=== PATIENT | male | born 1990 | race Caucasian/White ===

== ENCOUNTER 2016-07-18 08:46 | Inpatient (IN) | payer MEDICAID, OTHER ==
[~2016-07-18] VITALS: Ht 172.7 cm; Wt 112.0 kg
[~2016-07-18 08:46] MED LIST: ABIL2TAB2 PO; ATARAX PO; BUPR300T34 PO; CLAR500T PO; DEPA500T2 PO; EFFE75CA75 PO; GUAN1TA PO; HYDR-4274 PO; HYDR1TAB97 PO; HYDR50CA2 PO; IBUP80TA PO; LEVO112T2 PO; LEVO25TA5 PO; MELO15TA4 PO; MINI1CAP PO; NALT50TA2 PO; No Historical Meds; No home meds; RISP0.5T16 PO; RISP2TAB30 PO; STRA80CA PO; SYNT112T2 PO; SYNT25TA PO; TRAZ100T4 PO; TRAZO50TA PO; VENL75CA PO; VICO5TAB OR; VICO5TAB16 PO; VIST25CA PO; atarax PO
[2016-07-18] MEDS: NICOTINE 21MG/24HR 1 EA TRANSDERMAL TD SCH ×2 (09:00→15:30)
[2016-07-18] MEDS ORDERED: OXYMETAZOLINE NASAL SPRAY (AFRIN) As Ordered ONE (09:06)
[2016-07-18] MEDS ORDERED: PATIENT COMMENT (09:11)
[2016-07-18] MEDS ORDERED: FLUTICASONE PROP 0.05% NASAL SPRAY 16 GM (FLONASE) ONE (09:30)
[2016-07-18 09:34] LABS: MEAN CORPUSCULAR HEMOGLOBIN 29.7 pg (27.0-33.0); MEAN CORPUSCULAR HGB CONC 34.8 g/dl (32.0-36.5); MEAN CORPUSCULAR VOLUME 85.2 fl (80.0-96.0); RED CELL DISTRIBUTION WIDTH 12.2 % (11.5-14.5); WHITE BLOOD COUNT 5.8 K/mm3 (4.0-10.0)
[2016-07-18 09:49] LABS: AMPHETAMINES LEVEL URINE NEGATIVE (NEGATIVE); BENZODIAZEPINES URINE NEGATIVE (NEGATIVE); COCAINE METABOLITE URINE NEGATIVE (NEGATIVE); CONTROL LINE INT CTR LINE PRESENT; METHADONE URINE NEGATIVE (NEGATIVE); OPIATES URINE NEGATIVE (NEGATIVE); TRICYCLIC ANTIDEPRESS URINE NEGATIVE (NEGATIVE)
[2016-07-18 10:05] LABS: ALBUMIN 3.8 GM/DL (3.2-5.2); ALBUMIN/GLOBULIN RATIO 1.23 (1.00-1.93); ALKALINE PHOSPHATASE 79 U/L (45-117); ALT/SGPT 16 U/L (12-78); ANION GAP 9 MEQ/L (8-16); AST/SGOT 7 U/L (15-37); BILIRUBIN,DIRECT 0.1 MG/DL (0.0-0.2); BILIRUBIN,TOTAL 0.4 MG/DL (0.2-1.0); BLOOD UREA NITROGEN 12 MG/DL (7-18); CALCIUM LEVEL 8.5 MG/DL (8.5-10.1); CARBON DIOXIDE LEVEL 27 MEQ/L (21-32); CHLORIDE LEVEL 109 MEQ/L (98-107); CREATININE FOR GFR 0.89 MG/DL (0.70-1.30); GLOMERULAR FILTRATION RATE > 60.0 (>60); GLUCOSE, FASTING 93 MG/DL (70-105); SODIUM LEVEL 145 MEQ/L (136-145); TOTAL PROTEIN 6.9 GM/DL (6.4-8.2)
--- NOTE | 2016-07-18 12:17 | EDDOCDS ---
Physician Documentation [facility] Name: Mariusz Velarde Age: 25 yrs Sex: Male : 1990 Arrival Date: 07/18/2016 Time: 08:[address] MD: Disposition: 07/18/16 12:12 Hospitalization ordered by Breonna Ceja for Inpatient Admission. Preliminary diagnosis is Major depressive disorder, recurrent, moderate. - Bed requested for Admit. - Status is Inpatient Admission. jjr - Condition is Stable. - Problem is an acute exacerbation. - Symptoms are unchanged. Historical: - Allergies: Benadryl; - Home Meds: 1. Atarax Oral 50 mg twice a day not taking 2. divalproex 500 mg oral TbEC 1 tab 2 times per day not taking 3. levothyroxine 75 mcg Oral tab once daily not taking 4. risperidone 0.5 mg oral tab 2 times per day not taking 5. venlafaxine 75 mg oral cp24 1 cap once daily not taking - PMHx: Anxiety; Depression; Hypertension; - PSHx: right foot ORIF; - Social history: Smoking status: Patient states was never smoker of tobacco. No barriers to communication noted, Speaks appropriately for age. - : The pt / caregiver states he / she is not on anticoagulants. Home medication list is obtained from the patient, Unable to Verify Home Med List with the patient / caregiver. - Exposure Risk Screening:: None identified. Vital Signs: 07/18 09:04 Weight 108.86 kg / 240 lbs (R); Height 5 ft. 7 in. (170.18 cm) (R); Pain 0/10; ml6 09:42 BP 129 / 75; Pulse 77; Resp 16; Temp 97.3(O); Pulse Ox 96% on R/A; Height 5 ft. 7 in. sew (170.18 cm); Pain 8/10; 11:56 BP 121 / 71; Pulse 81; Resp 16; Temp 98.0(O); Pulse Ox 97% on R/A; Pain 5/10; sew 09:42 Body Mass Index 37.59 (108.86 kg, 170.18 cm) sew MDM: 09:02 Consult PFS/PSA/Associate Java Developer ordered. sd1 09:02 Consult PFS/PSA/Associate Java Developer: Patient's case requires discussion with on-call sd1 Psychiatrist ordered. 09:02 PSA/PFS to call Nursing Greenhouse Transplanter, to enter patient data on [place] Safe [place] if patient sd1 involuntarily admitted or transferred for SI or HI ordered. 09:02 Confirm accurate psychiatric medication list and times of last dosage ordered. sd1 09:02 Detain Pt Until Medically/PFS Cleared ordered. sd1 09:02 Oxymetazoline Tijer[place] 0.05 % 1 sprays Intranasal once ordered. sd1 09:02 Flonase Tijer[place] 50 mcg 2 sprays Intranasal once ordered. sd1 09:02 Acetaminophen Level Ordered. EDMS 09:02 Basic Metabolic Profile Ordered. EDMS 09:03 Complete Blood Count Ordered. EDMS 09:03 Drug Eval Toxicology ED Only Ordered. EDMS 09:03 Ethyl Alcohol (ethanol) Ordered. EDMS 09:03 Liver Profile Ordered. EDMS 09:03 Salicylate Level Ordered. EDMS 09:03 Thyroid Stimulating Hormone Ordered. EDMS 09:03 BED REQUEST+ADM ordered. EDMS 09:22 Financial registration complete. mm15 09:23 [facility] Payment Agreement was scanned into [employer] and attached to record. mm15 09:24 REGULAR DIET PLASTIC MCCORMICK-ER ordered. EDMS 10:16 Consult PFS/PSA/Associate Java Developer complete. ca 10:16 Consult PFS/PSA/Associate Java Developer: Patient's case requires discussion with on-call ca Psychiatrist complete. 10:16 PSA/PFS to call Nursing Greenhouse Transplanter, to [place] patient data [place] if patient ca involuntarily admitted or transferred for SI or HI complete. 10:32 Acetaminophen Level Reviewed. sd1 10:32 Basic Metabolic Profile Reviewed. sd1 10:32 Liver Profile Reviewed. sd1 10:32 Salicylate Level Reviewed. sd1 10:32 Thyroid Stimulating Hormone Reviewed. sd1 10:32 Complete Blood Count Reviewed. sd1 10:32 Drug Eval Toxicology ED Only Reviewed. sd1 10:32 Ethyl Alcohol (ethanol) Reviewed. sd1 11:06 REGULAR DIET PLASTIC MCCORMICK+DIET ordered. EDMS 11:43 Admit to HU: ordered. EDMS 11:44 REGULAR DIET ordered. EDMS 11:45 [facility] Legal paperwork was scanned into [employer] and attached to record. ml4 Administered Medications: 09:12 Drug: Oxymetazoline 1 sprays [oxymetazoline 0.05 % nasal spray (1 sprays)] Route: jjr Intranasal; Site: both nares; 10:23 Drug: Flonase Tijeras 50 mcg 2 sprays Route: Intranasal; Site: both nares; nr1 Signatures: Dispatcher [employer] Janeen Flores MD MD sd1 Francisca Robles, PSA PSA ca Ruthie Chamberlain, PSA PSA ml4 Luci Del Real RN RN jjJuventino Baker RN RN ml6 Shobha Elder mm15 Radha Michaud RN nr1 The chart was reviewed and I authenticate all verbal orders and agree with the evaluation and treatment provided.Attachments: 09: [facility] Payment Agreement mm15 MTDD
--- NOTE | 2016-07-18 12:17 | EDDOCDS ---
Nurse's Notes [facility] Name: Mariusz Velarde Age: 25 yrs Sex: Male : 1990 Arrival Date: 07/18/2016 Time: 08:[address] MD: Diagnosis: Major depressive disorder, recurrent, moderate Presentation: 07/18 08:51 Red Flag criteria, patient assessed and taken directly to a bed. ml6 09:00 Presenting complaint: Patient states: states that he stopped his medications 3 months ml6 ago, states increased depression and that he lost his apartment. Mental Health Triage Level: Level 2: The patient displays active suicidal ideations. Adult Sepsis Screening: The patient does not have new or worsening altered mentation. Patient's respiratory rate is less than 22. Systolic blood pressure is greater than 100. Patient has a qSOFA score of 0- Negative Sepsis Screen. Mental Health Triage Level: Level 2: The patient displays active suicidal ideations. Suicide/Homicide risk assessment- The patient admits to and/or has been reported to be having suicidal ideations. The patient reports that he/she has not been admitted to an inpatient mental health facility in the last 30 days. The patient reports that he/she does not have a recent or current history of substance abuse. The patient reports that he/she has a prior history of suicide attempt and/or organized plan. The patient reports that he/she has experienced a significant life altering event in the last 30 days. Status: Patient is not a appliance service representative or dependent. Transition of care: patient was not received from another setting of care. 09:00 Acuity: AKIKO Level 3 ml6 09:00 Method Of Arrival: Walkin/Carried/Asstd ml6 Triage Assessment: 09:04 General: Appears in no apparent distress, Behavior is appropriate for age, cooperative. ml6 Pain: Denies pain. HIV screening NA for this visit Offered previously. Neurological: No deficits noted. Level of Consciousness is awake, alert, Oriented to person, place, time. Cardiovascular: No deficits noted. Capillary refill < 3 seconds is brisk in bilateral fingers toes. Respiratory: No deficits noted. Airway is patent Respiratory effort is even, unlabored, Respiratory pattern is regular, symmetrical, Breath sounds are clear bilaterally. GI: No deficits noted. Abdomen is flat, non- distended Bowel sounds present X 4 quads. Abd is soft and non tender X 4 quads. Historical: - Allergies: Benadryl; - Home Meds: 1. Atarax Oral 50 mg twice a day not taking 2. divalproex 500 mg oral TbEC 1 tab 2 times per day not taking 3. levothyroxine 75 mcg Oral tab once daily not taking 4. risperidone 0.5 mg oral tab 2 times per day not taking 5. venlafaxine 75 mg oral cp24 1 cap once daily not taking - PMHx: Anxiety; Depression; Hypertension; - PSHx: right foot ORIF; - Social history: Smoking status: Patient states was never smoker of tobacco. No barriers to communication noted, Speaks appropriately for age. - : The pt / caregiver states he / she is not on anticoagulants. Home medication list is obtained from the patient, Unable to Verify Home Med List with the patient / caregiver. - Exposure Risk Screening:: None identified. Screenin:12 Screening information is obtained from the patient. Fall risk: No risks identified. jjr Assistance ADL's: requires no assistance with activities of daily living. Abuse/DV Screen: The patient / caregiver reports he/she is: not in a situation that causes fear, pain or injury. Nutritional screening: No deficits noted. Advance Directives: There is no active DNR order. home support is inadequate. Referral is made to [facility]. Assessment: 09:12 General: Appears in no apparent distress, well nourished, well groomed, Behavior is jjr appropriate for age, cooperative. Neurological: No deficits noted. EENT: Reports pain in left ear and right ear. Respiratory: Airway is patent Respiratory effort is even, unlabored, Respiratory pattern is regular, congested cough. Derm: No deficits noted. 11:05 General: Appears to be sleeping. jjr 12:15 General: Appears in no apparent distress, Behavior is appropriate for age, no change jjr from arrival. Mental Health Eval: 09:50 Mental health consult is initiated at 09:50. Status: The patient is not a mo appliance service representative or dependent. [facility] Behavioral Health: The patient is not an established patient of [facility] Behavioral Health. Referral Information: Evaluation referral is generated by the patient himself / herself. The patient was referred for evaluation because Depression, SI. Subjective: The patients chief complaint is Pt states he is "A little bit suicidal." Denies specific plan. Adds that he has "Wicked racing thoughts and flash-back type stuff." Pt is requesting admission. . Delusions are denied. Patient's mood is depressed, hopeless, hallucinations are Pt denies hallucinations, but goes on to describe "flash back stuff" as being "like a hallucination.". Pt says his life is not good and he has increasing depression. SI is vague, pt does not have a specific plan but he feels unable to cope with stressors and fears he will harm himself. Pt has decreased sleep and has not taken his psychiatric meds for 2-3 months because "I don't like the way they make me feel." No psychiatric tx with psychiatry at this time. He is also homeless and says he is bouncing around from house to house living with friends and family. Pt continues to use marijuana. He says he is no longer abusing alcohol, although he admits to 3 mixed drinks yesterday. Otherwise he says he has not consumed any for several months. He also abuses opioids, which he buys on the street, but denies using any lately. Completed rehab in [place], [place] earlier this year, per pt. Pt has a bottle caser, Breonna Funk ([phone]) through [facility]. Mental Health history: alcohol abuse, depression, abusing marijuana. narcotics. psychosis, self -mutilation, sleep disturbance, Mental Health Admissions: Most recently at [facility] 02/05 for depression, SI, AH Current Outpatient Mental Health Services: None. Current living environment is homeless. The patient is . Patient presents to Emergency Department with the following symptoms within the past 2 weeks: anxiety, depressed mood, feelings of helplessness/hopelessness, marital problem, non-compliance, poor concentration, sleep disturbance - insomnia, suicidal ideation with no plan. 10:12 Substance abuse: Patient uses marijuana Last use was 1 days ago. Patient uses opiates ca Type Used: "Pain pills" Last Used: 2-3 months ago. Mental status exam: Patients appearance is disheveled Patient's behavior is cooperative, Speech is normal. Affect is flat. Mood is depressed. Hallucinations are denied. Appetite is normal. Memory is fair. Energy level is lethargic. Content of thought is Depressive Thought process is intact. Cognitive level is oriented to person, place, time and situation Patient's insight is fair. Judgement is fair. Rapport with interviewer is good. Suicidal Ideation is present with no specific plan. Homicidal ideation is denied. Disposition: Medically cleared for disposition by Janeen Saleh MD. 11:32 Disposition: Psychiatric Consult is performed by phone with Dr Breonna Ceja. [facility] Admission Criteria: The patient is experiencing suicidal ideation. The patient displays symptoms of severe psychiatric disorder resulting in disordered behavior and significant interference with his / her ability to maintain self care. Psychomotor Retardation. The patient requires continuous observation and/or control to protect self, others or property. The patient's care requires a multi-modal treatment plan under close supervision and coordination due to the complexity and severity of the patient's symptoms. Legal Status: Patient's legal status will be Emergency admission: . [place] because patient was registered less than 6 months ago. DSM-V Differential Diagnosis: Major Depressive Disorder recurrent episode (F33.0). Insurance Pre-Certification: In progress. Awaiting: transfer to [facility]. Vital Signs: 09:04 Weight 108.86 kg (R); Height 5 ft. 7 in. (170.18 cm) (R); Pain 0/10; ml6 09:42 BP 129 / 75; Pulse 77; Resp 16; Temp 97.3(O); Pulse Ox 96% on R/A; Height 5 ft. 7 in. sew (170.18 cm); Pain 8/10; 11:56 BP 121 / 71; Pulse 81; Resp 16; Temp 98.0(O); Pulse Ox 97% on R/A; Pain 5/10; sew 09:42 Body Mass Index 37.59 (108.86 kg, 170.18 cm) sew Vitals: 09:04 Log In Time: July 18, 2016 at 08:50. ml6 ED Course: 08:47 Patient visited by Shobha Elder. mm15 08:47 Patient moved to Waiting mm15 08:51 Janeen Saleh MD is Attending Physician. sd1 08:51 Patient moved to [facility] ml6 08:52 Patient visited by Janeen Saleh MD. sd1 09:01 Triage Initiated ml6 09:12 The patient / caregiver is instructed regarding the plan of care and ED course. jjr 09:13 Patient visited by Luci Del Real RN. jjr 09:20 Patient visited by Janeen Dorsey. sew 09:20 Patient has correct armband on for positive identification. Bed in low position. Call sew light in reach. Side rails up X 1. Security observing. Property inventory done, secured in belongings bag- placed in locked locker. Placed in locker 3. Psych Safety Check: Location: Psych Room. Visual Assessment: Cooperative. 09:23 [facility] Payment Agreement was scanned into [employer] and attached to record. mm15 09:30 Labs drawn. (by ED staff). Sent per order to lab. Urine collected. Clean catch sew specimen. Urine specimen sent to lab. 09:31 Acetaminophen Level Sent. sew 09:31 Basic Metabolic Profile Sent. sew 09:31 Complete Blood Count Sent. sew 09:31 Ethyl Alcohol (ethanol) Sent. sew 09:31 Drug Eval Toxicology ED Only Sent. sew 09:31 Salicylate Level Sent. sew 09:31 Thyroid Stimulating Hormone Sent. sew 09:39 Patient visited by Janeen Dorsey. sew 09:39 Psych Safety Check: Location: Psych Room. Visual Assessment: Cooperative, pt resting on sew stretcher at this time. 09:42 Patient visited by Janeen Dorsey. sew 09:42 Diet: Patient given regular meal. sew 10:09 Patient visited by Janeen Dorsey. sew 10:09 Psych Safety Check: Location: Psych Room. Visual Assessment: Cooperative. sew 10:22 Patient visited by Janeen Dorsey. sew 10:22 Psych Safety Check: Location: Psych Room. Visual Assessment: Cooperative. sew 10:37 Psych Safety Check: Location: Psych Room. Visual Assessment: Cooperative. sew 10:43 Patient visited by Janeen Dorsey. sew 10:57 Patient visited by Janeen Dorsey. sew 10:57 Psych Safety Check: Location: Psych Room. Visual Assessment: Sleeping. sew 11:05 Patient visited by Luci Del Real RN. jjr 11:19 Psych Safety Check: Location: Psych Room. Visual Assessment: Sleeping. sew 11:20 Patient visited by Janeen Dorsey. sew 11:24 Psych Safety Check: Location: Psych Room. Visual Assessment: Sleeping. sew 11:45 [facility] Legal paperwork was scanned into [employer] and attached to record. ml4 11:45 Psych Safety Check: Location: Psych Room. Visual Assessment: Sleeping. sew 11:47 Patient visited by Janeen Dorsey. sew 11:57 Patient visited by Janeen Dorsey. sew 11:57 Patient visited by Janeen Dorsey. sew 11:57 Psych Safety Check: Location: Psych Room. Visual Assessment: Cooperative. sew 12:11 Patient visited by Janeen Dorsey. sew 12:11 Breonna Ceja is Hospitalizing Provider. sd1 12:11 Psych Safety Check: Location: Psych Room. Visual Assessment: Cooperative. sew 12:15 No IV's were initiated during this patient's visit. No procedures done that require jjr assistance. Administered Medications: 09:12 Drug: Oxymetazoline 1 sprays [oxymetazoline 0.05 % nasal spray (1 sprays)] Route: jjr Intranasal; Site: both nares; 10:23 Drug: Flonase Combes 50 mcg 2 sprays Route: Intranasal; Site: both nares; nr1 Attachments: 11:45 E Legal paperwork ml4 Order Results: Lab Order: Acetaminophen Level; SPEC'M 07/18/16 09:22 Test: ACETAMINOPHEN LEVEL; Value: < 2.0; Range: 10.0-30.0; Abnormal: Below low normal; Units: UG/ML; Status: F Lab Order: Basic Metabolic Profile; SPEC'M 07/18/16 09:22 Test: GLUCOSE, FASTING; Value: 93; Range: 70-105; Units: MG/DL; Status: F Test: BLOOD UREA NITROGEN; Value: 12; Range: 7-18; Units: MG/DL; Status: F Test: CREATININE FOR GFR; Value: 0.89; Range: 0.70-1.30; Units: MG/DL; Status: F Test: GLOMERULAR FILTRATION RATE; Value: > 60.0; Range: >60; Status: F Test: SODIUM LEVEL; Value: 145; Range: 136-145; Units: MEQ/L; Status: F Test: POTASSIUM SERUM; Value: 4.0; Range: 3.5-5.1; Units: MEQ/L; Status: F Test: CHLORIDE LEVEL; Value: 109; Range: 98-107; Abnormal: Above high normal; Units: MEQ/L; Status: F Test: CARBON DIOXIDE LEVEL; Value: 27; Range: 21-32; Units: MEQ/L; Status: F Test: ANION GAP; Value: 9; Range: 8-16; Units: MEQ/L; Status: F Test: CALCIUM LEVEL; Value: 8.5; Range: 8.5-10.1; Units: MG/DL; Status: F Test Note: ; Units are mL/min/1.73 m2 Chronic Kidney Disease Staging per NKF: Stage I & II GFR >=60 Normal to Mildly Decreased Stage III GFR 30-59 Moderately Decreased Stage IV GFR 15-29 Severely Decreased Stage V GFR <15 Very Little GFR Left ESRD GFR <15 on CASTING OPERATOR Lab Order: Complete Blood Count; SPEC'M 07/18/16 09:22 Test: WHITE BLOOD COUNT; Value: 5.8; Range: 4.0-10.0; Units: K/mm3; Status: F Test: RED BLOOD COUNT; Value: 5.35; Range: 4.30-6.10; Units: M/mm3; Status: F Test: HEMOGLOBIN; Value: 15.9; Range: 14.0-18.0; Units: g/dl; Status: F Test: HEMATOCRIT; Value: 45.6; Range: 42.0-52.0; Units: %; Status: F Test: MEAN CORPUSCULAR VOLUME; Value: 85.2; Range: 80.0-96.0; Units: fl; Status: F Test: MEAN CORPUSCULAR HEMOGLOBIN; Value: 29.7; Range: 27.0-33.0; Units: pg; Status: F Test: MEAN CORPUSCULAR HGB CONC; Value: 34.8; Range: 32.0-36.5; Units: g/dl; Status: F Test: RED CELL DISTRIBUTION WIDTH; Value: 12.2; Range: 11.5-14.5; Units: %; Status: F Test: PLATELET COUNT, AUTOMATED; Value: 333; Range: 150-450; Units: k/mm3; Status: F Lab Order: Drug Eval Toxicology ED Only; SPEC'M 07/18/16 09:22 Test: AMPHETAMINES LEVEL URINE; Value: NEGATIVE; Range: NEGATIVE; Status: F Test: BARBITURATES URINE; Value: NEGATIVE; Range: NEGATIVE; Status: F Test: BENZODIAZEPINES URINE; Value: NEGATIVE; Range: NEGATIVE; Status: F Test: CANNABINOIDS URINE; Value: NEGATIVE; Range: NEGATIVE; Status: F Test: COCAINE METABOLITE URINE; Value: NEGATIVE; Range: NEGATIVE; Status: F Test: METHADONE URINE; Value: NEGATIVE; Range: NEGATIVE; Status: F Test: OPIATES URINE; Value: NEGATIVE; Range: NEGATIVE; Status: F Test: TRICYCLIC ANTIDEPRESS URINE; Value: NEGATIVE; Range: NEGATIVE; Status: F Test Note: ; ALL PRESUMPTIVE POSITIVE FINDINGS ARE UNCONFIRMED NORMAL VALUES THRESHOLD IN NG/ML AMPHETAMINES 1000 METHAMPHETAMINES 1000 BARBITURATES 300 BENZODIAZEPINES 300 CANNABINOIDS (THC) 50 COCAINE METABOLITE 300 METHADONE 300 OPIATES 300 PHENCYCLIDINE 25 TRICYCLIC ANTIDEPRESSANTS 1000 RESULTS ARE FOR MEDICAL PURPOSES ONLY. ALL URINE SPECIMENS WILL BE SAVED FOR 3 DAYS. IF CONFIRMATION OF A PRESUMPTIVE POSTIVE SCREEN RESULT IS DESIRED, CALL CHEMISTRY ([phone]) AND REQUEST URINE TO BE SENT TO REFERENCE LAB. FOR A LIST OF CLOSELY RELATED COMPOUNDS PLEASE CALL THE LAB. Lab Order: Ethyl Alcohol (ethanol); SPEC'M 07/18/16 09:22 Test: ETHYL ALCOHOL (ETHANOL); Value: < 0.003; Range: 0.000-0.010; Units: %; Status: F Lab Order: Liver Profile; SPEC'M 07/18/16 09:22 Test: AST/SGOT; Value: 7; Range: 15-37; Abnormal: Below low normal; Units: U/L; Status: F Test: ALT/SGPT; Value: 16; Range: 12-78; Units: U/L; Status: F Test: ALKALINE PHOSPHATASE; Value: 79; Range: 45-117; Units: U/L; Status: F Test: BILIRUBIN,TOTAL; Value: 0.4; Range: 0.2-1.0; Units: MG/DL; Status: F Test: BILIRUBIN,DIRECT; Value: 0.1; Range: 0.0-0.2; Units: MG/DL; Status: F Test: TOTAL PROTEIN; Value: 6.9; Range: 6.4-8.2; Units: GM/DL; Status: F Test: ALBUMIN; Value: 3.8; Range: 3.2-5.2; Units: GM/DL; Status: F Test: ALBUMIN/GLOBULIN RATIO; Value: 1.23; Range: 1.00-1.93; Status: F Lab Order: Salicylate Level; SPEC'M 07/18/16 09:22 Test: SALICYLATE LEVEL; Value: 3.8; Range: 5.0-30.0; Abnormal: Below low normal; Units: MG/DL; Status: F Lab Order: Thyroid Stimulating Hormone; SPEC'M 07/18/16 09:22 Test: THYROID STIMULATING HORMONE; Value: 11.400; Range: 0.358-3.740; Abnormal: Above high normal; Units: uIU/ML; Status: F Outcome: 12:12 Decision to Hospitalize by Provider. sd1 12:15 Discharge Assessment: patient administered narcotics - no. The following High Risk jjr Discharge criteria are identified: None. Admitted to Psych accompanied by tech, via wheelchair, with chart. Condition: stable. No special radiology studies were completed. 12:16 Patient left the ED. jjr Signatures: Janeen Saleh MD MD sd1 Francisca Robles, PSA PSA ca Ruthie Chamberlain, PSA PSA ml4 Luci Del Real RN RN nawafr Juventino Rangel RN RN ml6 Janeen Dorsey Marlynn mm15 Radha Michaud,MICHAEL RN nr1 Corrections: (The following items were deleted from the chart) 10:49 09:50 Subjective: The patients chief complaint is Pt states he is "A little bit ca suicidal." Denies specific plan. Adds that he has "Wicked racing thoughts and flash-back type stuff." Pt is requesting admission. . Delusions are denied. Patient's mood is depressed, hopeless, hallucinations are Pt denies hallucinations, but goes on to describe "flash back stuff" as being "like a hallucination.". Pt says his life is not good and he has increasing depression. SI is vague, pt does not have a specific plan but he feels unable to cope with stressors and fears he will harm himself. Pt has decreased sleep and has not taken his psychiatric meds for 2-3 months because "I don't like the way they make me feel." No psychiatric tx with psychiatry at this time. He is also homeless and says he is bouncing around from house to house living with friends and family. Pt continues to use marijuana. He says he is no longer abusing alcohol, although he admits to 3 mixed drinks yesterday. Otherwise he says he has not consumed any for several months. He also abuses opioids, which he buys on the street, but denies using any lately. Completed rehab in [place] earlier this year, per pt. Pt has a bottle caser, Breonna, through [facility] ca MTDD
[2016-07-18 12:32] VITALS: BP 132/83
[2016-07-18] MEDS ORDERED: MOM 30ML SUSPENSION UDC PO PRN (14:00)
[2016-07-18] MEDS ORDERED: MAALOX 30 ML SUSP *UDC PO PRN (14:00)
[2016-07-18 18:00] VITALS: BP 130/77
[2016-07-18] MEDS: traZODone 50 MG TAB PO PRN (21:14)
[2016-07-19] MEDS: LEVOTHYROXINE 0.075 MG TAB (75 MCG) PO SCH (06:12)
[2016-07-19 06:56] VITALS: BP 116/61
[2016-07-19] MEDS: NICOTINE 21MG/24HR 1 EA TRANSDERMAL TD SCH (09:45)
[2016-07-19 18:00] VITALS: BP 133/71
[2016-07-19] MEDS: hydrOXYzine 50 MG TAB PO PRN (19:14)
[2016-07-19] MEDS: QUEtiapine FUMARATE 50 MG TAB PO SCH (21:16)
--- NOTE | 2016-07-19 21:16 | HPEPDOC ---
[facility] History & Physical History and Physical DATE OF ADMISSION: Jul 18, 2016 at 12:25 CHIEF COMPLAINT: "I guess I was feeling a little suicidal but I wasn't going to kill myself. " HISTORY OF THE PRESENT ILLNESS: Patient is a 25-year-old male who has had multiple inpatient admissions, last received inpatient treatment from [facility] in January 2016 for depression and suicidal ideation and audiovisual hallucinations. Patient indicates he is not active with outpatient treatment at this time and presents again for inpatient treatment reporting suicidal ideation with no plan. Patient reports worsening of the following symptoms over the past 2 weeks: Anxiety, helplessness, hopelessness, sleep disturbance, increase in depression, suicidal thinking, and adds he lost his apartment and is now homeless. Patient also endorses racing thoughts and "flashbacks memories about stuff from the past but not bad stuff," and mild mood lability. Patient reports current anxiety level of 7/10, depression 9/10, denies suicidal and homicidal ideation, denies audiovisual hallucinations, and denies urge to engage in self-injurious behavior. She denies history of suicide attempt. Patient reports experiencing "flashback memories of my past and stuff," indicates sensory experience is not disturbing and denies that "memories" are associated with traumatic experience. Patient indicates he had been taking psychotropic medications up until approximately 3 months ago, states he did not find medications effective and reports notable side effects. Patient informs advertising copywriter he received treatment at [place] in January 2016 which she found moderately helpful. Patient denies discomfort in social settings but reports history of panic symptoms denies compulsive behavior denies a history of aggression and denies access to weapons. Patient endorses racing thoughts, mild increase to energy level, reduced concentration reduced appetite with 25 pound weight loss over past month, reports latency and maintenance sleep related challenges, and indicates he "sometimes a little" experiences dissociative symptoms. Of Note: Patient indicates during his hospital stay he would like to only take 1 medication, as opposed to the combination of medications he's been taking adding, "I think something like Klonopin and Xanax worked the best but I know they won't give them to me." PAST PSYCHIATRIC HISTORY: Patient states up until about 3 months ago he was taking Atarax, Depakote 500 mg twice a day, Risperdal 0.5 mg twice a day, and Effexor XR day. Patient indicates he experienced side effects of sedation and and gynecomastia while taking Depakote and Risperdal, feels Effexor was ineffective, indicates Atarax was helpful for controlling symptoms of anxiety. Patient has a history of multiple inpatient hospitalizations and outpatient psychotherapy and medication management, states was last seen at [facility] outpatient approximately 4 months ago. Patient indicates he has a history of diagnoses anxiety and depression, reports history of health injurious behavior and substance abuse. MEDICAL HISTORY: Patient has a history of thyroid problems for which she takes levothyroxine, denies history of seizure and TBI, reports history of hypertension, right foot ORIF. Medical H&P is not available at time of this assessment. HOME MEDICATIONS: Please see below. ALLERGIES: Please see below. FAMILY PSYCHIATRIC HISTORY: Maternal uncle schizophrenia Maternal uncle bipolar depression Uncle committed suicide SOCIAL HISTORY: Patient indicates he was born and raised in [place] by parents who are and indicates he has limited contact with parents are now have "new families." Patient reports history of emotional abuse growing up, denies history of other forms of abuse, other traumatic events, and denies witnessing domestic violence in the home while growing up. Patient is , has 2 children with whom he has contact, indicates relationship with soon to be ex- is positive. Patient denies having adequate support system, denies history of legal problems, indicates he has completed 1 semester of college and has a high school diploma, adds he has not worked for the past year. Patient states he had [place] living [place] but due to the cold weather is no longer able to live there, has since been "bouncing around between friends." Patient states he has mattress spring encaser, Breonna Funk, through [facility]. SUBSTANCE ABUSE HISTORY: Patient indicates he has a history of heroin IV use and has been clean for 12 months, notes he last used marijuana 2 days ago, last consumed alcohol, 3 drinks, also 2 days ago. Patient notes prior to 2 days ago he had not used alcohol 3 months. Patient also reports history of opioid abuse which he buys on the street, noting last use was "several weeks" ago. Patient completed [facility] in 2016, UDS was negative on admission, EtOH was 0.003 on admission. Patient denies all symptoms of withdrawal. LEGAL HISTORY: Patient denies VITAL SIGNS: Blood pressure 133/71 , pulse 88, respirations 18, temperature 96.5 LABORATORY DATA: Chloride elevated, TSH elevated, AST low on admission MENTAL STATUS EXAMINATION: Appearance: 25-year-old , father of two children who appears stated age , is disheveled dressed in hospital clothing and makes limited eye contact. Behavior: Calm, cooperative, no psychomotor agitation Attitude: Pleasant, anxious, cooperative with interview.] Speech: [Normal rate, rhythm, volume Thought Content: Denies current suicidal/homicidal ideation. Denies auditory/ visual hallucination. Does not appear to be responding to internal stimuli. Does not appear internally preoccupied. Reports "flashbacks" of memories from past Thought Process: Logical, linear, goal-oriented. Mood: "Relaxed being in here" Affect: Blunted, generally congruent with mood Cognition: Appears intact Fund of knowledge: Limited Orientation: Oriented to person, place, time Insight and Judgement: Poor ASSESSMENT: Patient is 25-year-old male who appears anxious but engageable and readily meets with advertising copywriter in office for evaluation purposes. Patient appears to be adjusting to unit, however, has not been attending groups and has been isolative to room. Patient indicates he does not want to restart previous medication regimen citing side effects and ineffectiveness, indicates he is interested in taking something that would help reduce symptoms of racing thoughts, mood lability, anxiety and agitation, improve sleep, and reduced the "flashback memories stuff" which he indicates are non-distressing, are not hallucinations, and involve no command element to the sensory experience. Will initiate Seroquel 50 mg by mouth daily at bedtime. Patient denies all suicidal and homicidal ideation and is able to effectively engage in the safety planning process more verbalizing how to access supportive services on the unit when needed. Patient indicates he does not know what his discharge plan is due to being homeless, is hoping to receive assistance with this while in the inpatient setting. PROBLEM LIST: Suicidal ideation Anxiety Depression Limited support system Limited coping skills Financial strain Homelessness DIAGNOSES: Major depressive disorder, recurrent, moderate, polysubstance use disorder, rule out bipolar disorder, rule out substance-induced mood disorder MANAGEMENT PLAN: Initiate Seroquel 50 mg po q hs, continue hydroxyzine 50 mg po q 4 hours PRN anxiety/agitation, Trazodone 50 mg po hs PRN insomnia Maintain safety precautions Patient to attend groups and participate in unit programming to develop coping strategies Engage patient in discharge planning process and arrange meeting with support system to ensure safe and effective discharge planning when appropriate Patient to follow up with PCM upon discharge ESTIMATED LENGTH OF STAY: 7-10 days. Allergies Coded Allergies: Diphenhydramine (Verified Allergy, Unknown, 02/18/16) Unknown reaction, told to ED per report Latex (Unverified Allergy, Unknown, 01/10/15) Khloe Corley Jul 19, 2016 21:16
[2016-07-20] MEDS: LEVOTHYROXINE 0.075 MG TAB (75 MCG) PO SCH (06:20)
[2016-07-20 06:23] VITALS: BP 131/79
[2016-07-20] MEDS: NICOTINE 21MG/24HR 1 EA TRANSDERMAL TD SCH (09:06)
[2016-07-20] MEDS: ACETAMINOPHEN TAB 650MG DOSE (2X325MG) PO PRN (11:28)
--- NOTE | 2016-07-20 12:10 | HPE ---
DATE OF ADMISSION: 07/18/2016 HISTORY OF PRESENT ILLNESS (HPI): Please refer to the psychiatric history and evaluation for further details on this admission. This examination and history is intended for medical issues, which may need treatment, followup or consultation on this 25-year-old male. PAST MEDICAL HISTORY: Hypertension, anxiety, depression, chronic neck pain, chronic back pain, tobacco use, and hypothyroidism. HOME MEDICATIONS: He not taken any medication for for 3 months. PAST SURGICAL HISTORY: Ear surgery, open reduction, internal fixation (ORIF) right foot fracture 2010. ALLERGIES: NO KNOWN ALLERGIES. SOCIAL HISTORY: he is . Lives in [place]. Smokes half a pack of cigarettes per day. Ethyl alcohol (EtOH): None since rehabilitation in January of 2016, until yesterday, he had three mixed drinks. Recreational drug use: He buys opiates off the street. LABORATORY STUDIES: CBC was normal. Sodium 135, potassium 4.0, chloride 109. BUN and creatinine 12 and 0.89. TSH was 11.4. FAMILY HISTORY: Mother alive with bipolar disorder. Father alive, has had a CVA. 10 systems review was done. Had no complaints. PHYSICAL EXAMINATION: 25-year-old, cooperative male, in no acute distress. Height 68 inches. Weight 107.8 kg. Body mass index (BMI) 36. Blood pressure 132/83. Pulse 76. Respirations 16. Patient is alert and oriented times three. Pupils equal and reactive to light. Extraocular movements (EOMs) intact. Cornea and sclera clear. Conjunctiva is normal. No facial asymmetry. Pharynx, tongue and gum is pink and moist. Tongue is midline. Neck is supple, without lymphadenopathy. No thyromegaly. No goiter. Chest clear to auscultation, without wheeze or retraction. Heart is regular. Abdomen benign. Bowel sounds positive. Genitourinary () and rectal not done. Extremities show equal strength, full range of motion. No cyanosis, clubbing or edema. Peripheral pulses equal and palpable bilaterally. Skin is warm and dry. IMPRESSION AND PLAN: 1. Psychiatric plan per psychiatry. 2. Hypothyroidism. Restart levothyroxine 75 mcg by mouth daily. Patient will need a thyroid-stimulating hormone (TSH) and free T4 in 4 weeks. 3. Nicotine dependence. Patch available. 4. History of chronic neck and back pain. No complaints currently. Patient will need primary care followup for the hypothyroidism upon discharge. RAMON
--- NOTE | 2016-07-20 13:16 | EDDOCDS ---
Physician Documentation [facility] Name: Mariusz Velarde Age: 25 yrs Sex: Male : 1990 Arrival Date: 07/18/2016 Time: 08:[address] MD: Disposition: 07/18/16 12:12 Hospitalization ordered by Breonna eCja for Inpatient Admission. Preliminary diagnosis is Major depressive disorder, recurrent, moderate. - Bed requested for Admit. - Status is Inpatient Admission. jjr - Condition is Stable. - Problem is an acute exacerbation. - Symptoms are unchanged. Historical: - Allergies: Benadryl; - Home Meds: 1. Atarax Oral 50 mg twice a day not taking 2. divalproex 500 mg oral TbEC 1 tab 2 times per day not taking 3. levothyroxine 75 mcg Oral tab once daily not taking 4. risperidone 0.5 mg oral tab 2 times per day not taking 5. venlafaxine 75 mg oral cp24 1 cap once daily not taking - PMHx: Anxiety; Depression; Hypertension; - PSHx: right foot ORIF; - Social history: Smoking status: Patient states was never smoker of tobacco. No barriers to communication noted, Speaks appropriately for age. - : The pt / caregiver states he / she is not on anticoagulants. Home medication list is obtained from the patient, Unable to Verify Home Med List with the patient / caregiver. - Exposure Risk Screening:: None identified. Vital Signs: 07/18 09:04 Weight 108.86 kg / 240 lbs (R); Height 5 ft. 7 in. (170.18 cm) (R); Pain 0/10; ml6 09:42 BP 129 / 75; Pulse 77; Resp 16; Temp 97.3(O); Pulse Ox 96% on R/A; Height 5 ft. 7 in. sew (170.18 cm); Pain 8/10; 11:56 BP 121 / 71; Pulse 81; Resp 16; Temp 98.0(O); Pulse Ox 97% on R/A; Pain 5/10; sew 09:42 Body Mass Index 37.59 (108.86 kg, 170.18 cm) sew MDM: 09:02 Consult PFS/PSA/[place] Guide ordered. sd1 09:02 Consult PFS/PSA/[place] Guide: Patient's case requires discussion with on-call sd1 Psychiatrist ordered. 09:02 PSA/PFS to call Nursing Explosive Ordnance Handler, to enter patient data on [place] Safe [place] if patient sd1 involuntarily admitted or transferred for SI or HI ordered. 09:02 Confirm accurate psychiatric medication list and times of last dosage ordered. sd1 09:02 Detain Pt Until Medically/PFS Cleared ordered. sd1 09:02 Oxymetazoline [place] 0.05 % 1 sprays Intranasal once ordered. sd1 09:02 Flonase [place] 50 mcg 2 sprays Intranasal once ordered. sd1 09:02 Acetaminophen Level Ordered. EDMS 09:02 Basic Metabolic Profile Ordered. EDMS 09:03 Complete Blood Count Ordered. EDMS 09:03 Drug Eval Toxicology ED Only Ordered. EDMS 09:03 Ethyl Alcohol (ethanol) Ordered. EDMS 09:03 Liver Profile Ordered. EDMS 09:03 Salicylate Level Ordered. EDMS 09:03 Thyroid Stimulating Hormone Ordered. EDMS 09:03 BED REQUEST+ADM ordered. EDMS 09:22 Financial registration complete. mm15 09:23 [facility] Payment Agreement was scanned into [employer] and attached to record. mm15 09:24 REGULAR DIET PLASTIC MCCORMICK-ER ordered. EDMS 10:16 Consult PFS/PSA/[place] Guide complete. ca 10:16 Consult PFS/PSA/[place] Guide: Patient's case requires discussion with on-call ca Psychiatrist complete. 10:16 PSA/PFS to call Nursing Explosive Ordnance Handler, to enter [place] data [place] if patient ca involuntarily admitted or transferred for SI or HI complete. 10:32 Acetaminophen Level Reviewed. sd1 10:32 Basic Metabolic Profile Reviewed. sd1 10:32 Liver Profile Reviewed. sd1 10:32 Salicylate Level Reviewed. sd1 10:32 Thyroid Stimulating Hormone Reviewed. sd1 10:32 Complete Blood Count Reviewed. sd1 10:32 Drug Eval Toxicology ED Only Reviewed. sd1 10:32 Ethyl Alcohol (ethanol) Reviewed. sd1 11:06 REGULAR DIET PLASTIC MCCORMICK+DIET ordered. EDMS 11:43 Admit to IMHU: ordered. EDMS 11:44 REGULAR DIET ordered. EDMS 11:45 [facility] Legal paperwork was scanned into [employer] and attached to record. ml4 13:49 T-Sheet-- Draft Copy was scanned into [employer] and attached to record. gb Administered Medications: 09:12 Drug: Oxymetazoline 1 sprays [oxymetazoline 0.05 % nasal spray (1 sprays)] Route: jjr Intranasal; Site: both nares; 10:23 Drug: Flonase [place] 50 mcg 2 sprays Route: Intranasal; Site: both nares; nr1 Signatures: Dispatcher [employer] Janeen Flores MD MD sd1 Francisca Robles, PSA PSA ca Quin Nuñez, Reg Reg gb Ruthie Chamberlain, PSA PSA ml4 Luci Del Real RN RN Juventino Mcclain RN RN ml6 Shobha Elder mm15 Radha Michaud RN nr1 The chart was reviewed and I authenticate all verbal orders and agree with the evaluation and treatment provided.Attachments: [facility] Payment Agreement mm15 13:49 T-Sheet-- Draft Copy gb Chart Complete MTDD
--- NOTE | 2016-07-20 13:16 | EDDOCDS ---
Physician Documentation [facility] Name: Mariusz Velarde Age: 25 yrs Sex: Male : 1990 Arrival Date: 07/18/2016 Time: 08:[address] MD: Disposition: 07/18/16 12:12 Hospitalization ordered by Breonna Ceja for Inpatient Admission. Preliminary diagnosis is Major depressive disorder, recurrent, moderate. - Bed requested for Admit. - Status is Inpatient Admission. jjr - Condition is Stable. - Problem is an acute exacerbation. - Symptoms are unchanged. Historical: - Allergies: Benadryl; - Home Meds: 1. Atarax Oral 50 mg twice a day not taking 2. divalproex 500 mg oral TbEC 1 tab 2 times per day not taking 3. levothyroxine 75 mcg Oral tab once daily not taking 4. risperidone 0.5 mg oral tab 2 times per day not taking 5. venlafaxine 75 mg oral cp24 1 cap once daily not taking - PMHx: Anxiety; Depression; Hypertension; - PSHx: right foot ORIF; - Social history: Smoking status: Patient states was never smoker of tobacco. No barriers to communication noted, Speaks appropriately for age. - : The pt / caregiver states he / she is not on anticoagulants. Home medication list is obtained from the patient, Unable to Verify Home Med List with the patient / caregiver. - Exposure Risk Screening:: None identified. Vital Signs: 07/18 09:04 Weight 108.86 kg / 240 lbs (R); Height 5 ft. 7 in. (170.18 cm) (R); Pain 0/10; ml6 09:42 BP 129 / 75; Pulse 77; Resp 16; Temp 97.3(O); Pulse Ox 96% on R/A; Height 5 ft. 7 in. sew (170.18 cm); Pain 8/10; 11:56 BP 121 / 71; Pulse 81; Resp 16; Temp 98.0(O); Pulse Ox 97% on R/A; Pain 5/10; sew 09:42 Body Mass Index 37.59 (108.86 kg, 170.18 cm) sew MDM: 09:02 Consult PFS/PSA/Mobile Security Architect ordered. sd1 09:02 Consult PFS/PSA/Mobile Security Architect: Patient's case requires discussion with on-call sd1 Psychiatrist ordered. 09:02 PSA/PFS to call Nursing Cath Lab Technologist, to enter [place] data [place] if patient sd1 involuntarily admitted or transferred for SI or HI ordered. 09:02 Confirm accurate psychiatric medication list and times of last dosage ordered. sd1 09:02 Detain Pt Until Medically/PFS Cleared ordered. sd1 09:02 Oxymetazoline [place] 0.05 % 1 sprays Intranasal once ordered. sd1 09:02 Flonase [place] 50 mcg 2 sprays Intranasal once ordered. sd1 09:02 Acetaminophen Level Ordered. EDMS 09:02 Basic Metabolic Profile Ordered. EDMS 09:03 Complete Blood Count Ordered. EDMS 09:03 Drug Eval Toxicology ED Only Ordered. EDMS 09:03 Ethyl Alcohol (ethanol) Ordered. EDMS 09:03 Liver Profile Ordered. EDMS 09:03 Salicylate Level Ordered. EDMS 09:03 Thyroid Stimulating Hormone Ordered. EDMS 09:03 BED REQUEST+ADM ordered. EDMS 09:22 Financial registration complete. mm15 09:23 [facility] Payment Agreement was scanned into [employer] and attached to record. mm15 09:24 REGULAR DIET PLASTIC MCCORMICK-ER ordered. EDMS 10:16 Consult PFS/PSA/Mobile Security Architect complete. ca 10:16 Consult PFS/PSA/Mobile Security Architect: Patient's case requires discussion with on-call ca Psychiatrist complete. 10:16 PSA/PFS to call Nursing Cath Lab Technologist, to [place] if patient ca involuntarily admitted or transferred for SI or HI complete. 10:32 Acetaminophen Level Reviewed. sd1 10:32 Basic Metabolic Profile Reviewed. sd1 10:32 Liver Profile Reviewed. sd1 10:32 Salicylate Level Reviewed. sd1 10:32 Thyroid Stimulating Hormone Reviewed. sd1 10:32 Complete Blood Count Reviewed. sd1 10:32 Drug Eval Toxicology ED Only Reviewed. sd1 10:32 Ethyl Alcohol (ethanol) Reviewed. sd1 11:06 REGULAR DIET PLASTIC MCCORMICK+DIET ordered. EDMS 11:43 Admit to IMHU: ordered. EDMS 11:44 REGULAR DIET ordered. EDMS 11:45 [facility] Legal paperwork was scanned into [employer] and attached to record. ml4 13:49 T-Sheet-- Draft Copy was scanned into [employer] and attached to record. gb Administered Medications: 09:12 Drug: Oxymetazoline 1 sprays [oxymetazoline 0.05 % nasal spray (1 sprays)] Route: jjr Intranasal; Site: both nares; 10:23 Drug: Flonase [place] 50 mcg 2 sprays Route: Intranasal; Site: both nares; nr1 Signatures: Dispatcher [employer] Janeen Flores MD MD sd1 Francisca Robles, PSA PSA ca Quin Nuñez, Reg Reg gb Ruthie Chamberlain, PSA PSA ml4 Luci Del Real RN RN Juventino Mcclain RN RN ml6 Shobha Elder mm15 Radha Michaud RN nr1 The chart was reviewed and I authenticate all verbal orders and agree with the evaluation and treatment provided.Attachments: [facility] Payment Agreement mm15 13:49 T-Sheet-- Draft Copy gb Chart Complete MTDD
--- NOTE | 2016-07-20 13:17 | EDDOCDS ---
Nurse's Notes [facility] Name: Mariusz Velarde Age: 25 yrs Sex: Male : 1990 Arrival Date: 07/18/2016 Time: 08:[address] MD: Diagnosis: Major depressive disorder, recurrent, moderate Presentation: 07/18 08:51 Red Flag criteria, patient assessed and taken directly to a bed. ml6 09:00 Presenting complaint: Patient states: states that he stopped his medications 3 months ml6 ago, states increased depression and that he lost his apartment. Mental Health Triage Level: Level 2: The patient displays active suicidal ideations. Adult Sepsis Screening: The patient does not have new or worsening altered mentation. Patient's respiratory rate is less than 22. Systolic blood pressure is greater than 100. Patient has a qSOFA score of 0- Negative Sepsis Screen. Mental Health Triage Level: Level 2: The patient displays active suicidal ideations. Suicide/Homicide risk assessment- The patient admits to and/or has been reported to be having suicidal ideations. The patient reports that he/she has not been admitted to an inpatient mental health facility in the last 30 days. The patient reports that he/she does not have a recent or current history of substance abuse. The patient reports that he/she has a prior history of suicide attempt and/or organized plan. The patient reports that he/she has experienced a significant life altering event in the last 30 days. Status: Patient is not a slitter service and setter or dependent. Transition of care: patient was not received from another setting of care. 09:00 Acuity: AKIKO Level 3 ml6 09:00 Method Of Arrival: Walkin/Carried/Asstd ml6 Triage Assessment: 09:04 General: Appears in no apparent distress, Behavior is appropriate for age, cooperative. ml6 Pain: Denies pain. HIV screening NA for this visit Offered previously. Neurological: No deficits noted. Level of Consciousness is awake, alert, Oriented to person, place, time. Cardiovascular: No deficits noted. Capillary refill < 3 seconds is brisk in bilateral fingers toes. Respiratory: No deficits noted. Airway is patent Respiratory effort is even, unlabored, Respiratory pattern is regular, symmetrical, Breath sounds are clear bilaterally. GI: No deficits noted. Abdomen is flat, non- distended Bowel sounds present X 4 quads. Abd is soft and non tender X 4 quads. Historical: - Allergies: Benadryl; - Home Meds: 1. Atarax Oral 50 mg twice a day not taking 2. divalproex 500 mg oral TbEC 1 tab 2 times per day not taking 3. levothyroxine 75 mcg Oral tab once daily not taking 4. risperidone 0.5 mg oral tab 2 times per day not taking 5. venlafaxine 75 mg oral cp24 1 cap once daily not taking - PMHx: Anxiety; Depression; Hypertension; - PSHx: right foot ORIF; - Social history: Smoking status: Patient states was never smoker of tobacco. No barriers to communication noted, Speaks appropriately for age. - : The pt / caregiver states he / she is not on anticoagulants. Home medication list is obtained from the patient, Unable to Verify Home Med List with the patient / caregiver. - Exposure Risk Screening:: None identified. Screenin:12 Screening information is obtained from the patient. Fall risk: No risks identified. jjr Assistance ADL's: requires no assistance with activities of daily living. Abuse/DV Screen: The patient / caregiver reports he/she is: not in a situation that causes fear, pain or injury. Nutritional screening: No deficits noted. Advance Directives: There is no active DNR order. home support is inadequate. Referral is made to [facility]. Assessment: 09:12 General: Appears in no apparent distress, well nourished, well groomed, Behavior is jjr appropriate for age, cooperative. Neurological: No deficits noted. EENT: Reports pain in left ear and right ear. Respiratory: Airway is patent Respiratory effort is even, unlabored, Respiratory pattern is regular, congested cough. Derm: No deficits noted. 11:05 General: Appears to be sleeping. jjr 12:15 General: Appears in no apparent distress, Behavior is appropriate for age, no change jjr from arrival. Mental Health Eval: 09:50 Mental health consult is initiated at 09:50. Status: The patient is not a ut slitter service and setter or dependent. [facility] Behavioral Health: The patient is not an established patient of [facility] Behavioral Health. Referral Information: Evaluation referral is generated by the patient himself / herself. The patient was referred for evaluation because Depression, SI. Subjective: The patients chief complaint is Pt states he is "A little bit suicidal." Denies specific plan. Adds that he has "Wicked racing thoughts and flash-back type stuff." Pt is requesting admission. . Delusions are denied. Patient's mood is depressed, hopeless, hallucinations are Pt denies hallucinations, but goes on to describe "flash back stuff" as being "like a hallucination.". Pt says his life is not good and he has increasing depression. SI is vague, pt does not have a specific plan but he feels unable to cope with stressors and fears he will harm himself. Pt has decreased sleep and has not taken his psychiatric meds for 2-3 months because "I don't like the way they make me feel." No psychiatric tx with psychiatry at this time. He is also homeless and says he is bouncing around from house to house living with friends and family. Pt continues to use marijuana. He says he is no longer abusing alcohol, although he admits to 3 mixed drinks yesterday. Otherwise he says he has not consumed any for several months. He also abuses opioids, which he buys on the street, but denies using any lately. Completed rehab in [place], [place] earlier this year, per pt. Pt has a case specialist, Breonna Funk ([phone]) through [facility]. Mental Health history: alcohol abuse, depression, abusing marijuana. narcotics. psychosis, self -mutilation, sleep disturbance, Mental Health Admissions: Most recently at [facility] 02/05 for depression, SI, AH Current Outpatient Mental Health Services: None. Current living environment is homeless. The patient is . Patient presents to Emergency Department with the following symptoms within the past 2 weeks: anxiety, depressed mood, feelings of helplessness/hopelessness, marital problem, non-compliance, poor concentration, sleep disturbance - insomnia, suicidal ideation with no plan. 10:12 Substance abuse: Patient uses marijuana Last use was 1 days ago. Patient uses opiates ca Type Used: "Pain pills" Last Used: 2-3 months ago. Mental status exam: Patients appearance is disheveled Patient's behavior is cooperative, Speech is normal. Affect is flat. Mood is depressed. Hallucinations are denied. Appetite is normal. Memory is fair. Energy level is lethargic. Content of thought is Depressive Thought process is intact. Cognitive level is oriented to person, place, time and situation Patient's insight is fair. Judgement is fair. Rapport with interviewer is good. Suicidal Ideation is present with no specific plan. Homicidal ideation is denied. Disposition: Medically cleared for disposition by Janeen Saleh MD. 11:32 Disposition: Psychiatric Consult is performed by phone with Dr Breonna Ceja. [facility] ca Admission Criteria: The patient is experiencing suicidal ideation. The patient displays symptoms of severe psychiatric disorder resulting in disordered behavior and significant interference with his / her ability to maintain self care. Psychomotor Retardation. The patient requires continuous observation and/or control to protect self, others or property. The patient's care requires a multi-modal treatment plan under close supervision and coordination due to the complexity and severity of the patient's symptoms. Legal Status: Patient's legal status will be Emergency admission: . [place] Safe [place] is [place] because patient was registered less than 6 months ago. DSM-V Differential Diagnosis: Major Depressive Disorder recurrent episode (F33.0). Insurance Pre-Certification: In progress. Awaiting: transfer to [facility]. 07/19 10:46 Insurance Pre-Certification: approved by: Jaclyn. Pt approved for 5 days (07/18-07/22). ca Review on 07/22 with Akanksha jha [phone], Ext [phone]. Auth number [id number]. Vital Signs: 07/18 09:04 Weight 108.86 kg (R); Height 5 ft. 7 in. (170.18 cm) (R); Pain 0/10; ml6 09:42 BP 129 / 75; Pulse 77; Resp 16; Temp 97.3(O); Pulse Ox 96% on R/A; Height 5 ft. 7 in. sew (170.18 cm); Pain 8/10; 11:56 BP 121 / 71; Pulse 81; Resp 16; Temp 98.0(O); Pulse Ox 97% on R/A; Pain 5/10; sew 09:42 Body Mass Index 37.59 (108.86 kg, 170.18 cm) sew Vitals: 09:04 Log In Time: July 18, 2016 at 08:50. ml6 ED Course: 08:47 Patient visited by Shobha Elder. mm15 08:47 Patient moved to Waiting mm15 08:51 Janeen Saleh MD is Attending Physician. sd1 08:51 Patient moved to [facility] ml6 08:52 Patient visited by Janeen Saleh MD. sd1 09:01 Triage Initiated ml6 09:12 The patient / caregiver is instructed regarding the plan of care and ED course. jjr 09:13 Patient visited by Luci Del Real RN. jjr 09:20 Patient visited by Janeen Dorsey. sew 09:20 Patient has correct armband on for positive identification. Bed in low position. Call sew light in reach. Side rails up X 1. Security observing. Property inventory done, secured in belongings bag- placed in locked locker. Placed in locker 3. Psych Safety Check: Location: Psych Room. Visual Assessment: Cooperative. 09:23 [facility] Payment Agreement was scanned into Runner and attached to record. mm15 09:30 Labs drawn. (by ED staff). Sent per order to lab. Urine collected. Clean catch sew specimen. Urine specimen sent to lab. 09:31 Acetaminophen Level Sent. sew 09:31 Basic Metabolic Profile Sent. sew 09:31 Complete Blood Count Sent. sew 09:31 Ethyl Alcohol (ethanol) Sent. sew 09:31 Drug Eval Toxicology ED Only Sent. sew 09:31 Salicylate Level Sent. sew 09:31 Thyroid Stimulating Hormone Sent. sew 09:39 Patient visited by Janeen Dorsey. sew 09:39 Psych Safety Check: Location: Psych Room. Visual Assessment: Cooperative, pt resting on sew stretcher at this time. 09:42 Patient visited by Janeen Dorsey. sew 09:42 Diet: Patient given regular meal. sew 10:09 Patient visited by Janeen Dorsey. sew 10:09 Psych Safety Check: Location: Psych Room. Visual Assessment: Cooperative. sew 10:22 Patient visited by Janeen Dorsey. sew 10:22 Psych Safety Check: Location: Psych Room. Visual Assessment: Cooperative. sew 10:37 Psych Safety Check: Location: Psych Room. Visual Assessment: Cooperative. sew 10:43 Patient visited by Janeen Dorsey. sew 10:57 Patient visited by Janeen Dorsey. sew 10:57 Psych Safety Check: Location: Psych Room. Visual Assessment: Sleeping. sew 11:05 Patient visited by Luci Del Real RN. jjr 11:19 Psych Safety Check: Location: Psych Room. Visual Assessment: Sleeping. sew 11:20 Patient visited by Janeen Dorsey. sew 11:24 Psych Safety Check: Location: Psych Room. Visual Assessment: Sleeping. sew 11:45 [facility] Legal paperwork was scanned into Runner and attached to record. ml4 11:45 Psych Safety Check: Location: Psych Room. Visual Assessment: Sleeping. sew 11:47 Patient visited by Janeen Dorsey. sew 11:57 Patient visited by Janeen Dorsey. sew 11:57 Patient visited by Janeen Dorsey. sew 11:57 Psych Safety Check: Location: Psych Room. Visual Assessment: Cooperative. sew 12:11 Patient visited by Janeen Dorsey. sew 12:11 Breonna Ceja is Hospitalizing Provider. sd1 12:11 Psych Safety Check: Location: Psych Room. Visual Assessment: Cooperative. sew 12:15 No IV's were initiated during this patient's visit. No procedures done that require jjr assistance. 13:49 T-Sheet-- Draft Copy was scanned into Runner and attached to record. gb Administered Medications: 09:12 Drug: Oxymetazoline 1 sprays [oxymetazoline 0.05 % nasal spray (1 sprays)] Route: jjr Intranasal; Site: both nares; 10:23 Drug: Flonase [place] 50 mcg 2 sprays Route: Intranasal; Site: both nares; nr1 Attachments: 11:45 [facility] Legal paperwork ml4 Order Results: Lab Order: Acetaminophen Level; SPEC'M 07/18/16 09:22 Test: ACETAMINOPHEN LEVEL; Value: < 2.0; Range: 10.0-30.0; Abnormal: Below low normal; Units: UG/ML; Status: F Lab Order: Basic Metabolic Profile; SPEC'M 07/18/16 09:22 Test: GLUCOSE, FASTING; Value: 93; Range: 70-105; Units: MG/DL; Status: F Test: BLOOD UREA NITROGEN; Value: 12; Range: 7-18; Units: MG/DL; Status: F Test: CREATININE FOR GFR; Value: 0.89; Range: 0.70-1.30; Units: MG/DL; Status: F Test: GLOMERULAR FILTRATION RATE; Value: > 60.0; Range: >60; Status: F Test: SODIUM LEVEL; Value: 145; Range: 136-145; Units: MEQ/L; Status: F Test: POTASSIUM SERUM; Value: 4.0; Range: 3.5-5.1; Units: MEQ/L; Status: F Test: CHLORIDE LEVEL; Value: 109; Range: 98-107; Abnormal: Above high normal; Units: MEQ/L; Status: F Test: CARBON DIOXIDE LEVEL; Value: 27; Range: 21-32; Units: MEQ/L; Status: F Test: ANION GAP; Value: 9; Range: 8-16; Units: MEQ/L; Status: F Test: CALCIUM LEVEL; Value: 8.5; Range: 8.5-10.1; Units: MG/DL; Status: F Test Note: ; Units are mL/min/1.73 m2 Chronic Kidney Disease Staging per NKF: Stage I & II GFR >=60 Normal to Mildly Decreased Stage III GFR 30-59 Moderately Decreased Stage IV GFR 15-29 Severely Decreased Stage V GFR <15 Very Little GFR Left ESRD GFR <15 on ACAD[employer]MENT CHAIR Lab Order: Complete Blood Count; [facility]' 07/18/16 09:22 Test: WHITE BLOOD COUNT; Value: 5.8; Range: 4.0-10.0; Units: K/mm3; Status: F Test: RED BLOOD COUNT; Value: 5.35; Range: 4.30-6.10; Units: M/mm3; Status: F Test: HEMOGLOBIN; Value: 15.9; Range: 14.0-18.0; Units: g/dl; Status: F Test: HEMATOCRIT; Value: 45.6; Range: 42.0-52.0; Units: %; Status: F Test: MEAN CORPUSCULAR VOLUME; Value: 85.2; Range: 80.0-96.0; Units: fl; Status: F Test: MEAN CORPUSCULAR HEMOGLOBIN; Value: 29.7; Range: 27.0-33.0; Units: pg; Status: F Test: MEAN CORPUSCULAR HGB CONC; Value: 34.8; Range: 32.0-36.5; Units: g/dl; Status: F Test: RED CELL DISTRIBUTION WIDTH; Value: 12.2; Range: 11.5-14.5; Units: %; Status: F Test: PLATELET COUNT, AUTOMATED; Value: 333; Range: 150-450; Units: k/mm3; Status: F Lab Order: Drug Eval Toxicology ED Only; SPEC'M 07/18/16 09:22 Test: AMPHETAMINES LEVEL URINE; Value: NEGATIVE; Range: NEGATIVE; Status: F Test: BARBITURATES URINE; Value: NEGATIVE; Range: NEGATIVE; Status: F Test: BENZODIAZEPINES URINE; Value: NEGATIVE; Range: NEGATIVE; Status: F Test: CANNABINOIDS URINE; Value: NEGATIVE; Range: NEGATIVE; Status: F Test: COCAINE METABOLITE URINE; Value: NEGATIVE; Range: NEGATIVE; Status: F Test: METHADONE URINE; Value: NEGATIVE; Range: NEGATIVE; Status: F Test: OPIATES URINE; Value: NEGATIVE; Range: NEGATIVE; Status: F Test: TRICYCLIC ANTIDEPRESS URINE; Value: NEGATIVE; Range: NEGATIVE; Status: F Test Note: ; ALL PRESUMPTIVE POSITIVE FINDINGS ARE UNCONFIRMED NORMAL VALUES THRESHOLD IN NG/ML AMPHETAMINES 1000 METHAMPHETAMINES 1000 BARBITURATES 300 BENZODIAZEPINES 300 CANNABINOIDS (THC) 50 COCAINE METABOLITE 300 METHADONE 300 OPIATES 300 PHENCYCLIDINE 25 TRICYCLIC ANTIDEPRESSANTS 1000 RESULTS ARE FOR MEDICAL PURPOSES ONLY. ALL URINE SPECIMENS WILL BE SAVED FOR 3 DAYS. IF CONFIRMATION OF A PRESUMPTIVE POSTIVE SCREEN RESULT IS DESIRED, CALL CHEMISTRY ([phone]) AND REQUEST URINE TO BE SENT TO REFERENCE LAB. FOR A LIST OF CLOSELY RELATED COMPOUNDS PLEASE CALL THE LAB. Lab Order: Ethyl Alcohol (ethanol); SPEC'M 07/18/16 09:22 Test: ETHYL ALCOHOL (ETHANOL); Value: < 0.003; Range: 0.000-0.010; Units: %; Status: F Lab Order: Liver Profile; SPEC'M 07/18/16 09:22 Test: AST/SGOT; Value: 7; Range: 15-37; Abnormal: Below low normal; Units: U/L; Status: F Test: ALT/SGPT; Value: 16; Range: 12-78; Units: U/L; Status: F Test: ALKALINE PHOSPHATASE; Value: 79; Range: 45-117; Units: U/L; Status: F Test: BILIRUBIN,TOTAL; Value: 0.4; Range: 0.2-1.0; Units: MG/DL; Status: F Test: BILIRUBIN,DIRECT; Value: 0.1; Range: 0.0-0.2; Units: MG/DL; Status: F Test: TOTAL PROTEIN; Value: 6.9; Range: 6.4-8.2; Units: GM/DL; Status: F Test: ALBUMIN; Value: 3.8; Range: 3.2-5.2; Units: GM/DL; Status: F Test: ALBUMIN/GLOBULIN RATIO; Value: 1.23; Range: 1.00-1.93; Status: F Lab Order: Salicylate Level; SPEC'M 07/18/16 09:22 Test: SALICYLATE LEVEL; Value: 3.8; Range: 5.0-30.0; Abnormal: Below low normal; Units: MG/DL; Status: F Lab Order: Thyroid Stimulating Hormone; SPEC'M 07/18/16 09:22 Test: THYROID STIMULATING HORMONE; Value: 11.400; Range: 0.358-3.740; Abnormal: Above high normal; Units: uIU/ML; Status: F Outcome: 12:12 Decision to Hospitalize by Provider. sd1 12:15 Discharge Assessment: patient administered narcotics - no. The following High Risk jjr Discharge criteria are identified: None. Admitted to Psych accompanied by tech, via wheelchair, with chart. Condition: stable. No special radiology studies were completed. 12:16 Patient left the ED. jjr Signatures: Janeen Saleh MD MD sd1 Travis, Francisca, PSA PSA ca Quin Nuñez, Reg Reg gb Cintia, Ruthie, PSA PSA ml4 Luci Del Real RN RN jjr Lowe, Matthew, RN RN ml6 Janeen Dorsey Marlynn mm15 Radha Michaud RN RN nr1 Corrections: (The following items were deleted from the chart) 10:49 09:50 Subjective: The patients chief complaint is Pt states he is "A little bit ca suicidal." Denies specific plan. Adds that he has "Wicked racing thoughts and flash-back type stuff." Pt is requesting admission. . Delusions are denied. Patient's mood is depressed, hopeless, hallucinations are Pt denies hallucinations, but goes on to describe "flash back stuff" as being "like a hallucination.". Pt says his life is not good and he has increasing depression. SI is vague, pt does not have a specific plan but he feels unable to cope with stressors and fears he will harm himself. Pt has decreased sleep and has not taken his psychiatric meds for 2-3 months because "I don't like the way they make me feel." No psychiatric tx with psychiatry at this time. He is also homeless and says he is bouncing around from house to house living with friends and family. Pt continues to use marijuana. He says he is no longer abusing alcohol, although he admits to 3 mixed drinks yesterday. Otherwise he says he has not consumed any for several months. He also abuses opioids, which he buys on the street, but denies using any lately. Completed rehab in [place], [place] earlier this year, per pt. Pt has a case specialist, Breonna, through [facility] ca Chart Complete MTDD
--- NOTE | 2016-07-20 14:14 | IPNPDOC ---
[facility] Progress Note Progress Note DATE: 07/20/16 HISTORY: Patient was seen today to evaluate treatment progress on the inpatient unit. Patient has been more visible, has been attending groups, isolating less, and has seemed to his personal care needs. Patient reports 3/10 anxiety, 1/10 depression, denies suicidal and homicidal ideation, denies audiovisual hallucinations, denies urge to engage in self-injurious behavior, denies dissociative symptoms. Patient indicates Seroquel was helpful in reducing racing thoughts and states he slept better (8 hours) last night, denies nightmares. Patient also utilized hydroxyzine 50 mg po PRN for increase in anxiety symptoms yesterday evening and took trazodone 50 mg po at bedtime for sleep, notes medications worked well with no side effects. Patient reports some reduction to symptoms of mood lability, also reports some reduction to "flashbacks of memories," notes the memories themselves are not distressing but adds "it's torturous because it's the same thing over and over that just keeps coming back into my head." Patient has restarted medication to address hypothyroidism which she notes he had not taken for several months, states today he feels his recent mood change may be associated with abrupt discontinuation of thyroid med. VITAL SIGNS: See below NEW TEST RESULTS: No new results. On admission Chloride elevated, TSH elevated, AST low on admission CURRENT MEDICATIONS: See below. MENTAL STATUS EXAMINATION: Appearance: 25-year-old , father of two children who appears stated age , exhibits improved personal hygiene today, has showered, continues to make limited eye contact. Behavior: Calm, cooperative, no psychomotor agitation Attitude: Pleasant, less anxious, cooperative with assessment Speech: Normal rate, rhythm, volume Thought Content: Denies current suicidal/homicidal ideation. Denies auditory/ visual hallucination. Does not appear to be responding to internal stimuli. Does not appear internally preoccupied. Reports ongoing "flashbacks" of memories from past, states memories themselves are non-distressing but notes repetitiveness of symptoms causes frustration. Patient insists sensory experience is not audiovisual hallucination, and denies all command element. Thought Process: Logical, linear, goal-oriented. Mood: "Pretty good" Affect: Blunted but brightens, less blunted than yesterday generally congruent with mood Cognition: Appears intact Fund of knowledge: Limited Orientation: Oriented to person, place, time Insight and Judgement: Poor DIAGNOSES: Major depressive disorder, recurrent, moderate, polysubstance use disorder, rule out OCD, rule out bipolar disorder, rule out substance-induced mood disorder ASSESSMENT: Patient is 25-year-old male who appears anxious but engageable and readily meets with automotive service writer in office for evaluation purposes. Patient appears to be adjusting to unit and is now visible in milieu and has been attending groups. Patient began taking Seroquel 50 mg by mouth daily at bedtime last night , notes medication was effective in helping to improve sleep, reduce symptoms of mood lability, racing thoughts and "flashbacks," reducing anxiety; patient denies medication side effects. Patient has just restarted medication to address thyroid so will maintain patient at current dose of Seroquel 50 mg by mouth at bedtime and will temporarily monitor patient's response to thyroid medication restart. Patient denies all suicidal and homicidal ideation and is able to effectively engage in the safety planning process and is able to verbalize how to access supportive services on the unit when needed. Patient reiterates today he does not know where he will be discharging to a time of discharge due to currently being homeless. MANAGEMENT PLAN: Continue Seroquel 50 mg po q hs, continue hydroxyzine 50 mg po q 4 hours PRN anxiety/agitation, Trazodone 50 mg po hs PRN insomnia Maintain safety precautions Patient to attend groups and participate in unit programming to develop coping strategies Engage patient in discharge planning process and arrange meeting with support system to ensure safe and effective discharge planning when appropriate Patient to follow up with PCM upon discharge Vital Signs Vital Sign - Last 24 Hours 07/19/16 07/20/16 18:00 06:23 Temp 96.5 97.1 Pulse 88 75 Resp 18 18 B/P 133/71 131/79 Current Medications Current Medications Acetaminophen (Tylenol) 650 mg Q6HP PRN PO HEADACHE or DISCOMFORT Last administered on 07/20/16at 11:28; Start 07/18/16 at 14:00; Stop 08/17/16 at 13: 59 Al Hydrox/Mg Hydrox/Simethicone (Mylanta) 30 ml Q4HP PRN PO HEARTBURN/ INDIGESTION; Start 07/18/16 at 14:00; Stop 08/17/16 at 13:59 Fluticasone Propionate (Flonase 0.05% Nasal [place]) 2 SPRAYS IN EACH NOSTRIL ONCE ONCE NA ; Start 07/18/16 at 09:30; Stop 07/18/16 at 09:31; Status DC Home Med (Med Rec Complete!) ASDIRECTED XX ; Start 07/18/16 at 10:30; Stop at 10:31; Status DC Hydroxyzine HCl (Atarax) 50 mg Q4HP PRN PO ANXIETY/AGITATION Last administered on 07/19/16at 19:14; Start 07/19/16 at 18:45; Stop 08/18/16 at 18:44 Levothyroxine Sodium (Synthroid) 0.075 mg DAILY@06 PO Last administered on at 06:20; Start 07/19/16 at 06:00; Stop 08/18/16 at 05:59 Magnesium Hydroxide (Milk Of Magnesia) 30 ml DAILYPRN PRN PO CONSTIPATION; Start 07/18/16 at 14:00; Stop 08/17/16 at 13:59 Nicotine (Nicoderm Cq 21mg) 1 patch DAILY TD Last administered on 07/20/16at 09 :06; Start 07/18/16 at 09:00; Stop 08/17/16 at 08:59 Oxymetazoline HCl (Afrin) 30 spray STK-MED ONCE As Ordered ; Start 07/18/16 at 09:06; Stop 07/18/16 at 09:07; Status DC Quetiapine Fumarate (SEROquel) 50 mg QHS PO Last administered on 07/19/16at 21: 16; Start 07/19/16 at 21:00; Stop 08/18/16 at 20:59 Trazodone HCl (Desyrel) 50 mg QHSP PRN PO INSOMNIA Last administered on at 21:14; Start 07/18/16 at 14:00; Stop 08/17/16 at 13:59 Allergies Coded Allergies: Diphenhydramine (Verified Allergy, Unknown, 02/18/16) Unknown reaction, told to ED per report Latex (Unverified Allergy, Unknown, 01/10/15) Khloe Corley Jul 20, 2016 14:14
[2016-07-20 18:00] VITALS: BP 113/58
[2016-07-20] MEDS: hydrOXYzine 50 MG TAB PO PRN (19:07)
[2016-07-20] MEDS: traZODone 50 MG TAB PO PRN (20:34)
[2016-07-20] MEDS: QUEtiapine FUMARATE 50 MG TAB PO SCH (20:34)
[2016-07-21] MEDS: LEVOTHYROXINE 0.075 MG TAB (75 MCG) PO SCH (06:03)
[2016-07-21 06:10] VITALS: BP 110/59
[2016-07-21] MEDS: hydrOXYzine 50 MG TAB PO PRN ×2 (06:20→12:44)
[2016-07-21] MEDS: NICOTINE 21MG/24HR 1 EA TRANSDERMAL TD SCH (08:15)
--- NOTE | 2016-07-21 16:50 | IPNPDOC ---
[facility] Progress Note Progress Note DATE: 07/21/16 HISTORY: Patient was seen today to evaluate treatment progress on the inpatient unit. Patient has been more visible, has been attending groups, isolating less, and has seemed to his personal care needs. Patient reports 4/10 anxiety, 3/10 depression, denies suicidal and homicidal ideation, denies audiovisual hallucinations, denies urge to engage in self-injurious behavior, denies dissociative symptoms and reports reduction in "flashback" type symptoms. Patient indicates Seroquel remains helpful in reducing symptoms of anxiety and racing thoughts of feels his mood is more stable. Patient notes, however, that effects of Seroquel "where off" in the afternoon at which time aforementioned symptoms return. Patient indicates he slept 7 hours last night and denies nightmares, adds he feels more rested. Patient continues to take newly restarted medication to address hypothyroidism. Patient denies challenges with appetite and concentration, reports energy level has improved but remains low. Patient presents with no signs of acute distress and indicates he feels safe on unit. VITAL SIGNS: See below NEW TEST RESULTS: No new results. On admission Chloride elevated, TSH elevated, AST low on admission CURRENT MEDICATIONS: See below. MENTAL STATUS EXAMINATION: Appearance: 25-year-old , father of two children who appears stated age , exhibits improved personal hygiene today, has showered, continues to make limited eye contact. Behavior: Calm, cooperative, no psychomotor agitation Attitude: Pleasant, less anxious, cooperative with assessment Speech: Normal rate, rhythm, volume Thought Content: Denies current suicidal/homicidal ideation. Denies auditory/ visual hallucination. Does not appear to be responding to internal stimuli. Does not appear internally preoccupied. Reports reduced "flashbacks" of memories from past, reiterates memories themselves are non-distressing but notes repetitiveness of symptoms causes frustration. Patient insists sensory experience is not audiovisual hallucination and denies all command element. Thought Process: Logical, linear, goal-oriented. Mood: "Ok" Affect: Blunted but brightens, congruent with mood Cognition: Appears intact Fund of knowledge: Limited Orientation: Oriented to person, place, time Insight and Judgement: Poor DIAGNOSES: Major depressive disorder, recurrent, moderate, polysubstance use disorder, rule out OCD, rule out bipolar disorder, rule out substance-induced mood disorder ASSESSMENT: Patient is 25-year-old male who appears anxious but engageable and readily meets with television writer to evaluate treatment progress. Patient appears to be adjusting to unit and is visible in milieu and attending groups. Patient indicates Seroquel 50 mg at bedtime is effective in helping to improve sleep and stabilize mood and reduce symptoms of anxiety and racing thoughts, and is requesting dose increase due to feeling that patient effectiveness "wears off" in afternoon. Patient reports reduction to symptoms of non-distressing "flashbacks." Patient continues to adjust to thyroid medication restart with no notable changes to energy level. Patient denies all suicidal and homicidal ideation and is able to effectively participate in the safety planning process and is able to verbalize how to access supportive services on the unit when needed. Patient reiterates today he does not know where he will be discharging to a time of discharge due to currently being homeless. Will increase patient's Seroquel to 100 mg by mouth daily at bedtime and will continue to titrate medication as needed and tolerated by patient. Patient is in agreement with discontinuation of trazodone for sleep. MANAGEMENT PLAN: Increase Seroquel to 100 mg po q hs, continue hydroxyzine 50 mg po q 4 hours PRN anxiety/agitation, discontinue Trazodone 50 mg po hs PRN insomnia Maintain safety precautions Patient to attend groups and participate in unit programming to develop coping strategies Engage patient in discharge planning process and arrange meeting with support system to ensure safe and effective discharge planning when appropriate Patient to follow up with PCM upon discharge Vital Signs Vital Sign - Last 24 Hours 07/20/16 07/21/16 18:00 06:10 Temp 96.9 97.2 Pulse 87 65 Resp 16 17 B/P 113/58 110/59 Current Medications Current Medications Acetaminophen (Tylenol) 650 mg Q6HP PRN PO HEADACHE or DISCOMFORT Last administered on 07/20/16at 11:28; Start 07/18/16 at 14:00; Stop 08/17/16 at 13: 59 Al Hydrox/Mg Hydrox/Simethicone (Mylanta) 30 ml Q4HP PRN PO HEARTBURN/ INDIGESTION; Start 07/18/16 at 14:00; Stop 08/17/16 at 13:59 Fluticasone Propionate (Flonase 0.05% Nasal [place]) 2 SPRAYS IN EACH NOSTRIL ONCE ONCE NA ; Start 07/18/16 at 09:30; Stop 07/18/16 at 09:31; Status DC Home Med (Med Rec Complete!) ASDIRECTED XX ; Start 07/18/16 at 10:30; Stop at 10:31; Status DC Hydroxyzine HCl (Atarax) 50 mg Q4HP PRN PO ANXIETY/AGITATION Last administered on 07/21/16at 12:44; Start 07/19/16 at 18:45; Stop 08/18/16 at 18:44 Levothyroxine Sodium (Synthroid) 0.075 mg DAILY@06 PO Last administered on at 06:03; Start 07/19/16 at 06:00; Stop 08/18/16 at 05:59 Magnesium Hydroxide (Milk Of Magnesia) 30 ml DAILYPRN PRN PO CONSTIPATION; Start 07/18/16 at 14:00; Stop 08/17/16 at 13:59 Nicotine (Nicoderm Cq 21mg) 1 patch DAILY TD Last administered on 07/21/16at 08 :15; Start 07/18/16 at 09:00; Stop 08/17/16 at 08:59 Oxymetazoline HCl (Afrin) 30 spray STK-MED ONCE As Ordered ; Start 07/18/16 at 09:06; Stop 07/18/16 at 09:07; Status DC Quetiapine Fumarate (SEROquel) 50 mg QHS PO Last administered on 07/20/16at 20: 34; Start 07/19/16 at 21:00; Stop 08/18/16 at 20:59 Trazodone HCl (Desyrel) 50 mg QHSP PRN PO INSOMNIA Last administered on at 20:34; Start 07/18/16 at 14:00; Stop 08/17/16 at 13:59 Allergies Coded Allergies: Diphenhydramine (Verified Allergy, Unknown, 02/18/16) Unknown reaction, told to ED per report Latex (Unverified Allergy, Unknown, 01/10/15) Khloe Corley Jul 21, 2016 16:50
[2016-07-21 18:00] VITALS: BP 133/72
[2016-07-21] MEDS: QUEtiapine FUMARATE 100 MG TAB PO SCH (20:05)
[2016-07-21] MEDS: ACETAMINOPHEN TAB 650MG DOSE (2X325MG) PO PRN (20:07)
[2016-07-22] MEDS: LEVOTHYROXINE 0.075 MG TAB (75 MCG) PO SCH (05:25)
[2016-07-22] MEDS: hydrOXYzine 50 MG TAB PO PRN ×2 (05:27→13:31)
[2016-07-22 06:27] VITALS: BP 138/94
[2016-07-22] MEDS: NICOTINE 21MG/24HR 1 EA TRANSDERMAL TD SCH (09:14)
--- NOTE | 2016-07-22 10:34 | IPNPDOC ---
[facility] Progress Note Progress Note DATE: 07/22/16 HISTORY: Patient was seen today to evaluate treatment progress on the inpatient unit. Patient remains more visible, has been attending groups, isolates at times in room between groups but is generally more visible on unit. Patient took increased dose of Seroquel last night, notes improvement to sleep with no nightmares and indicates she feels "better" today. Patient reports reduced symptoms of anxiety, racing thoughts, and "flashback" symptoms. Patient reports 3/10 anxiety, 3/10 depression, denies suicidal and homicidal ideation, denies audiovisual hallucinations, denies urge to engage in self-injurious behavior, and denies dissociative symptoms. Patient states he feels his mood is more level. With regards medication side effects, patient reports symptoms of fatigue this morning, adds he rested and symptoms subsided, notes he is not sure if fatigue is related to adjusting to thyroid medication, change to Seroquel dose, or the result of taking his hydroxyzine PRN medication earlier this morning. Patient indicates current medication regimen is effective and denies all other side effects. Patient denies challenges with appetite and concentration, reports energy level continues to improve. Patient presents with no signs of acute distress and indicates he continues to feel safe on unit. Patient notes he has met with patient resource coordinator and is waiting to hear when his generation technician, Breonna Funk, will be coming in for discharge planning meeting. Patient states he is hoping to discharge to [facility], was also encouraged to consider participating in substance abuse treatment. VITAL SIGNS: See below NEW TEST RESULTS: No new results. On admission Chloride elevated, TSH elevated, AST low on admission CURRENT MEDICATIONS: See below. MENTAL STATUS EXAMINATION: Appearance: 25-year-old , father of two children who appears stated age , exhibits improved personal hygiene today, has showered, continues to make limited eye contact. Behavior: Calm, cooperative, no psychomotor agitation Attitude: Pleasant, less anxious, cooperative with assessment Speech: Normal rate, rhythm, volume, increased spontaneity Thought Content: Denies current suicidal/homicidal ideation. Denies auditory/ visual hallucination. Does not appear to be responding to internal stimuli. Does not appear internally preoccupied. Reports reduced "flashbacks" of memories from past, reiterates memories themselves are non-distressing but notes repetitiveness of symptoms causes frustration. Patient continues to report that sensory experience is not audiovisual hallucination and denies all command element. Thought Process: Logical, linear, goal-oriented. Mood: "Okay, better today" Affect: Blunted but brightens, congruent with mood Cognition: Appears intact Fund of knowledge: Limited Orientation: Oriented to person, place, time Insight and Judgement: Poor DIAGNOSES: Major depressive disorder, recurrent, moderate, polysubstance use disorder, rule out OCD, rule out bipolar disorder, rule out substance-induced mood disorder ASSESSMENT: Patient is 25-year-old male who is observed to be resting in bed between groups but is very engageable and presents with improved energy level and increased spontaneity in responses to life insurance underwriter. Patient is now attending groups regularly, is more visible on the unit though continues to isolate at times in the room between groups, engages selectively with peers. Patient denies all safety concerns and reports reduction to symptoms of anxiety, racing thoughts, and "flashback" symptoms. Patient remains able to effectively engage in the safety planning process and is able to verbalize how to access supportive services on the unit when needed. Patient's insight appears to be improving with regard to impact of substance abuse history, however, he minimizes events leading to hospitalization and currently minimizes potential benefit of participating in substance abuse treatment. Patient is requesting to continue Seroquel hs at the 100 mg dose, will monitor symptoms of fatigue and make dosing adjustments as needed/tolerated by patient. MANAGEMENT PLAN: Continue Seroquel 100 mg po q hs, continue hydroxyzine 50 mg po q 4 hours PRN anxiety/agitation Maintain safety precautions Patient to attend groups and participate in unit programming to develop coping strategies Engage patient in discharge planning process and arrange meeting with support system/social work case manager to ensure safe and effective discharge planning, patient currently requesting TLS, has also been encouraged to consider substance abuse treatment Patient to follow up with PCM upon discharge Vital Signs Vital Sign - Last 24 Hours 07/21/16 07/22/16 18:00 06:27 Temp 97.6 95.3 Pulse 75 76 Resp 16 16 B/P 133/72 138/94 Current Medications Current Medications Acetaminophen (Tylenol) 650 mg Q6HP PRN PO HEADACHE or DISCOMFORT Last administered on 07/21/16at 20:07; Start 07/18/16 at 14:00; Stop 08/17/16 at 13: 59 Al Hydrox/Mg Hydrox/Simethicone (Mylanta) 30 ml Q4HP PRN PO HEARTBURN/ INDIGESTION; Start 07/18/16 at 14:00; Stop 08/17/16 at 13:59 Fluticasone Propionate (Flonase 0.05% Nasal [place]) 2 SPRAYS IN EACH NOSTRIL ONCE ONCE NA ; Start 07/18/16 at 09:30; Stop 07/18/16 at 09:31; Status DC Home Med (Med Rec Complete!) ASDIRECTED XX ; Start 07/18/16 at 10:30; Stop at 10:31; Status DC Hydroxyzine HCl (Atarax) 50 mg Q4HP PRN PO ANXIETY/AGITATION Last administered on 07/22/16at 05:27; Start 07/19/16 at 18:45; Stop 08/18/16 at 18:44 Levothyroxine Sodium (Synthroid) 0.075 mg DAILY@06 PO Last administered on at 05:25; Start 07/19/16 at 06:00; Stop 08/18/16 at 05:59 Magnesium Hydroxide (Milk Of Magnesia) 30 ml DAILYPRN PRN PO CONSTIPATION; Start 07/18/16 at 14:00; Stop 08/17/16 at 13:59 Nicotine (Nicoderm Cq 21mg) 1 patch DAILY TD Last administered on 07/22/16at 09 :14; Start 07/18/16 at 09:00; Stop 08/17/16 at 08:59 Oxymetazoline HCl (Afrin) 30 spray STK-MED ONCE As Ordered ; Start 07/18/16 at 09:06; Stop 07/18/16 at 09:07; Status DC Quetiapine Fumarate (SEROquel) 50 mg QHS PO Last administered on 07/20/16at 20: 34; Start 07/19/16 at 21:00; Stop 07/21/16 at 16:53; Status DC Quetiapine Fumarate (SEROquel) 100 mg QHS PO Last administered on 07/21/16at 20 :05; Start 07/21/16 at 21:00; Stop 08/20/16 at 20:59 Trazodone HCl (Desyrel) 50 mg QHSP PRN PO INSOMNIA Last administered on at 20:34; Start 07/18/16 at 14:00; Stop 07/21/16 at 16:53; Status DC Allergies Coded Allergies: Diphenhydramine (Verified Allergy, Unknown, 02/18/16) Unknown reaction, told to ED per report Latex (Unverified Allergy, Unknown, 01/10/15) Khloe Corley Jul 22, 2016 10:34
[2016-07-22] MEDS: ACETAMINOPHEN TAB 650MG DOSE (2X325MG) PO PRN (17:48)
[2016-07-22 18:00] VITALS: BP 127/73
[2016-07-22] MEDS: QUEtiapine FUMARATE 100 MG TAB PO SCH (20:58)
[2016-07-22] MEDS: AUGMENTIN 875 MG TAB PO SCH (22:14)
[2016-07-23] MEDS: LEVOTHYROXINE 0.075 MG TAB (75 MCG) PO SCH (06:13)
[2016-07-23 06:29] VITALS: BP 140/84
[2016-07-23] MEDS: AUGMENTIN 875 MG TAB PO SCH ×2 (09:16→20:22)
[2016-07-23] MEDS: NICOTINE 21MG/24HR 1 EA TRANSDERMAL TD SCH (09:16)
[2016-07-23] MEDS: hydrOXYzine 50 MG TAB PO PRN ×2 (09:17→16:46)
[2016-07-23] MEDS: ACETAMINOPHEN TAB 650MG DOSE (2X325MG) PO PRN (16:46)
[2016-07-23 18:00] VITALS: BP 142/71
[2016-07-23] MEDS: QUEtiapine FUMARATE 100 MG TAB PO SCH (20:23)
[2016-07-24] MEDS: LEVOTHYROXINE 0.075 MG TAB (75 MCG) PO SCH (06:05)
[2016-07-24 06:08] VITALS: BP 156/93
[2016-07-24] MEDS: hydrOXYzine 50 MG TAB PO PRN (08:03)
[2016-07-24] MEDS: NICOTINE 21MG/24HR 1 EA TRANSDERMAL TD SCH (08:04)
[2016-07-24] MEDS: AUGMENTIN 875 MG TAB PO SCH ×2 (08:04→20:16)
[2016-07-24] MEDS: QUEtiapine FUMARATE 50 MG TAB PO SCH (11:01)
[2016-07-24 18:00] VITALS: BP 118/60
[2016-07-24] MEDS: ACETAMINOPHEN TAB 650MG DOSE (2X325MG) PO PRN (20:17)
[2016-07-24] MEDS: QUEtiapine FUMARATE 100 MG TAB PO SCH (20:17)
[2016-07-25] MEDS: LEVOTHYROXINE 0.075 MG TAB (75 MCG) PO SCH (05:47)
[2016-07-25 06:00] VITALS: BP 124/65
[2016-07-25] MEDS: AUGMENTIN 875 MG TAB PO SCH ×2 (08:15→21:08)
[2016-07-25] MEDS: QUEtiapine FUMARATE 50 MG TAB PO SCH (08:15)
[2016-07-25] MEDS: NICOTINE 21MG/24HR 1 EA TRANSDERMAL TD SCH (08:15)
--- NOTE | 2016-07-25 08:16 | IPN ---
DATE OF SERVICE: 07/22/2016 He is a 25-year-old male patient on the inpatient mental health unit, who states that for two days he has been having increasing left ear pain and pressure. No fever. No chills. No difficulty swallowing. No cough. No hemoptysis. No orthopnea. No wheeze. OBJECTIVE: VITAL SIGNS: Stable. Blood pressure is 127/73, pulse 90, respirations 16, temperature 97. HEENT: Pupils are equal and reactive to light. Extraocular muscles intact. Sclerae clear. Conjunctivae normal. No facial asymmetry. Tympanic membrane on the right is pearly, left is red and injected. Canal clear. NECK: Supple without lymphadenopathy, thyromegaly or goiter. CHEST: Coarse breath sounds. No wheeze or retraction. HEART: Regular. ABDOMEN: Benign. Bowel sounds positive. GENITOURINARY/RECTAL: Not done. EXTREMITIES: Equal strength, full range of motion. No clubbing, cyanosis, and edema. SKIN: Warm and dry. Turgor good. IMPRESSION AND PLAN: Left otitis media. Augmentin 875 mg one by mouth twice a day for 10 days, take with food. Tylenol over the counter as ordered as needed for pain or fever.
[2016-07-25 18:00] VITALS: BP 153/90
--- NOTE | 2016-07-25 19:55 | IPN ---
DATE: 07/24/2016 VITAL SIGNS: Temperature 97.0, pulse 108, respiratory 20, blood pressure 156/93. CURRENT MEDICATION: - Seroquel 100 mg at bedtime - hydroxyzine Atarax 50 mg every 4 hours as needed PSYCHE HISTORY: Patient seen at the request of patient's nursing staff. Patient has history of major depression recurrent. Rule out bipolar disorder. Patient has been started on Seroquel which has been very helpful for his racing thoughts. He still complains of significant anxiety. He feels irritable. He is afraid he is going to lose control. Anxiety/racing thoughts become "unbearable" later in the afternoon. He states his appetite is good. He does have sleep problems. He has frequent night terrors and has had these for many years. Last night he did wake up in the middle of night from one of these night terrors. He feels that the Seroquel is wearing off a bit. He is tolerating this Seroquel well. He claims his appetite is under good control. He feels comfortable in increasing the dosage. He denies hearing voices but does report having an "internal narrative" which might be a type of auditory hallucination. However it is unclear. MENTAL STATUS EXAMINATION: Patient is alert, oriented and cooperative. He is anxious. He is on edge. He is restless. He has racing thoughts. He is mildly to moderately depressed. He is not homicidal or suicidal. He reports questionable auditory hallucinations. Insight and judgment appear fair. DIAGNOSIS: 1. Major depression, recurrent. 2. Rule out bipolar disorder. PLAN: Increase Seroquel to 50 mg every morning, 150 mg by mouth at bedtime.
[2016-07-25] MEDS: QUEtiapine FUMARATE 100 MG TAB PO SCH (21:07)
[2016-07-25] MEDS: hydrOXYzine 50 MG TAB PO PRN (21:07)
[2016-07-25] MEDS: ACETAMINOPHEN TAB 650MG DOSE (2X325MG) PO PRN (21:08)
[2016-07-26] MEDS: LEVOTHYROXINE 0.075 MG TAB (75 MCG) PO SCH (05:41)
[2016-07-26 06:01] VITALS: BP 154/76
[2016-07-26] MEDS: AUGMENTIN 875 MG TAB PO SCH ×2 (09:11→20:11)
[2016-07-26] MEDS: QUEtiapine FUMARATE 50 MG TAB PO SCH (09:11)
[2016-07-26] MEDS: NICOTINE 21MG/24HR 1 EA TRANSDERMAL TD SCH (09:11)
[2016-07-26] MEDS: ACETAMINOPHEN TAB 650MG DOSE (2X325MG) PO PRN (09:12)
[2016-07-26] MEDS: hydrOXYzine 50 MG TAB PO PRN ×2 (09:52→20:11)
--- NOTE | 2016-07-26 17:36 | IPNPDOC ---
[facility] Progress Note Progress Note DATE: 07/26/16 HISTORY: Patient was seen today to evaluate treatment progress on the inpatient unit. Patient was seen over the weekend by pattern repair person M.Chivo who increased patient's Seroquel to 150 mg at bedtime and 50 mg by mouth every morning. Patient indicates improvement to symptoms, today denying anxiety, reports 2/10 depression, denies suicidal and homicidal ideation, denies audiovisual hallucinations, and denies urge to engage in self-injurious behavior. Patient reports improvement to racing thoughts, indicates he feels his mood is more level, and reports reduction of "flashback" type symptoms. Patient reiterates today that "flashbacks" are non-distressing, are related to events that have happened in his life, and involve no voices or command element. Patient reports improvement to sleep and denies nightmares symptoms. Patient remains visible, has been attending groups, continues to isolate at times in his room between groups, but is engageable and is more social on unit. Patient states he continues to adjust thyroid medication, feels his energy level is improving, and denies all medication side effects. Patient continues to take hydroxyzine as needed approximately 1-2 times per day, notes medication is generally effective at helping to reduce anxiety symptoms. Patient denies challenges with appetite and concentration, reports energy level continues to improve. Patient presents with no signs of acute distress and indicates he continues to feel safe on unit. Patient notes he is scheduled for meeting with his education and outreach coordinator and medical case manager, is requesting discharge to [facility], and is in agreement to discharge to temporary housing first if necessary. Patient was again encouraged to consider participating in substance abuse treatment. VITAL SIGNS: See below NEW TEST RESULTS: No new results. On admission Chloride elevated, TSH elevated, AST low on admission CURRENT MEDICATIONS: See below. MENTAL STATUS EXAMINATION: Appearance: 25-year-old , father of two children who appears stated age , exhibits adequate personal hygiene today, makes improved eye contact today Behavior: Calm, cooperative, no psychomotor agitation Attitude: Pleasant, less anxious, cooperative with assessment Speech: Normal rate, rhythm, volume, increased spontaneity, more articulate and appropriately expressive Thought Content: Denies current suicidal/homicidal ideation. Denies auditory/ visual hallucination. Does not appear to be responding to internal stimuli. Does not appear internally preoccupied. Reports reduced "flashbacks" of memories from past over weekend, reiterates memories themselves are non- distressing. Patient continues to report that sensory experience is not audiovisual hallucination and denies all command element. Thought Process: Logical, linear, goal-oriented. Mood: "Better, pretty good today" Affect: Constricted, brightens at times, congruent with mood Cognition: Appears intact Fund of knowledge: Improvement Orientation: Oriented to person, place, time Insight and Judgement: Limited, some improvement DIAGNOSES: Major depressive disorder, recurrent, moderate, polysubstance use disorder, rule out OCD, rule out bipolar disorder, rule out substance-induced mood disorder ASSESSMENT: Patient is 25-year-old male who is observed to be resting in bed between groups but sits up immediately gets out of bed, walks to public relations writer's office for today's meeting. Patient needs to be more engageable and presents with improved energy level and increased depressive medicine his responses to this public relations writer. Patient is now attending groups regularly and is more visible in milieu. Patient denies all safety concerns and reports continuing reduction to symptoms of anxiety, racing thoughts, and "flashback" symptoms. Patient remains able to effectively engage in the safety planning process and is able to verbalize how to access supportive services on the unit when needed. Patient states he will consider participating in outpatient substance abuse treatment, indicates he wants to discharge to [facility] and will participate in outpatient psychotherapy and medication management services. MANAGEMENT PLAN: Continue Seroquel 50 mg po q am and 150 mg po q hs, continue hydroxyzine 50 mg po q 4 hours PRN anxiety/agitation Maintain safety precautions Patient to attend groups and participate in unit programming to develop coping strategies Engage patient in discharge planning process and arrange meeting with support system/medical case manager to ensure safe and effective discharge planning, patient currently requesting [facility] services, is also being encouraged to consider substance abuse treatment Patient to follow up with PCM upon discharge Vital Signs Vital Sign - Last 24 Hours 07/25/16 07/26/16 18:00 06:01 Temp 97.6 96.0 Pulse 108 96 Resp 16 16 B/P 153/90 154/76 Current Medications Current Medications Acetaminophen (Tylenol) 650 mg Q6HP PRN PO HEADACHE or DISCOMFORT Last administered on 07/26/16 09:12; Start 07/18/16 at 14:00; Stop 08/17/16 at 13:59 Al Hydrox/Mg Hydrox/Simethicone (Mylanta) 30 ml Q4HP PRN PO HEARTBURN/ INDIGESTION; Start 07/18/16 at 14:00; Stop 08/17/16 at 13:59 Amoxicillin/ Clavulanate Potassium (Augmentin) 875 mg BID PO Last administered on 07/26/16 09:11; Start 07/22/16 at 21:00; Stop 08/01/16 at 09:01 Fluticasone Propionate (Flonase 0.05% Nasal [place]) 2 SPRAYS IN EACH NOSTRIL ONCE ONCE NA ; Start 07/18/16 at 09:30; Stop 07/18/16 at 09:31; Status DC Home Med (Med Rec Complete!) ASDIRECTED XX ; Start 07/18/16 at 10:30; Stop at 10:31; Status DC Hydroxyzine HCl (Atarax) 50 mg Q4HP PRN PO ANXIETY/AGITATION Last administered on 07/26/16 09:52; Start 07/19/16 at 18:45; Stop 08/18/16 at 18:44 Levothyroxine Sodium (Synthroid) 0.075 mg DAILY@06 PO Last administered on 05:41; Start 07/19/16 at 06:00; Stop 08/18/16 at 05:59 Magnesium Hydroxide (Milk Of Magnesia) 30 ml DAILYPRN PRN PO CONSTIPATION; Start 07/18/16 at 14:00; Stop 08/17/16 at 13:59 Nicotine (Nicoderm Cq 21mg) 1 patch DAILY TD Last administered on 07/26/16 09: 11; Start 07/18/16 at 09:00; Stop 08/17/16 at 08:59 Oxymetazoline HCl (Afrin) 30 spray STK-MED ONCE As Ordered ; Start 07/18/16 at 09:06; Stop 07/18/16 at 09:07; Status DC Quetiapine Fumarate (SEROquel) 50 mg QAM PO Last administered on 07/26/16 09:11 ; Start 07/24/16 at 09:00; Stop 08/23/16 at 08:59 Quetiapine Fumarate (SEROquel) 50 mg QHS PO Last administered on 07/20/16at 20: 34; Start 07/19/16 at 21:00; Stop 07/21/16 at 16:53; Status DC Quetiapine Fumarate (SEROquel) 100 mg QHS PO Last administered on 07/23/16at 20 :23; Start 07/21/16 at 21:00; Stop 07/24/16 at 10:45; Status DC Quetiapine Fumarate (SEROquel) 150 mg QHS PO Last administered on 07/25/16t 21: 07; Start 07/24/16 at 21:00; Stop 08/23/16 at 20:59 Trazodone HCl (Desyrel) 50 mg QHSP PRN PO INSOMNIA Last administered on at 20:34; Start 07/18/16 at 14:00; Stop 07/21/16 at 16:53; Status DC Allergies Coded Allergies: Diphenhydramine (Verified Allergy, Unknown, 02/18/16) Unknown reaction, told to ED per report Latex (Unverified Allergy, Unknown, 01/10/15) Khloe Corley Jul 26, 2016 17:36
[2016-07-26 18:00] VITALS: BP 120/67
[2016-07-26] MEDS: QUEtiapine FUMARATE 100 MG TAB PO SCH (20:11)
[2016-07-27] MEDS: LEVOTHYROXINE 0.075 MG TAB (75 MCG) PO SCH (05:49)
[2016-07-27 06:23] VITALS: BP 132/68
[2016-07-27] MEDS: hydrOXYzine 50 MG TAB PO PRN ×3 (06:29→20:23)
[2016-07-27] MEDS: AUGMENTIN 875 MG TAB PO SCH ×2 (09:47→20:22)
[2016-07-27] MEDS: NICOTINE 21MG/24HR 1 EA TRANSDERMAL TD SCH (09:47)
[2016-07-27] MEDS: QUEtiapine FUMARATE 50 MG TAB PO SCH (09:47)
[2016-07-27] MEDS: KETOCONAZOLE 2% CREAM TOP SCH ×2 (13:02→20:23)
[2016-07-27 18:00] VITALS: BP 134/82
--- NOTE | 2016-07-27 20:15 | IPNPDOC ---
[facility] Progress Note Progress Note DATE: 07/27/16 HISTORY: Patient was seen today to evaluate treatment progress on the inpatient unit. Patient reports current medication regimen is working well and he denies need for medication adjustment. Patient today reports depression 2/10, anxiety 2 /10, and indicates he feels symptoms are related to feeling that his family does not want him and concerns related to discharge planning. Patient indicates he feels he is ready for discharge, however, he [facility] [place] [facility] [place], is now wanting to [place] [facility] [place] where he believes he is less likely to come and contact with individuals abusing drugs. Patient denies suicidal and homicidal ideation, denies audiovisual hallucinations, denies all urge to engage in self-injurious behavior. Patient states he feels his mood is level and denies symptoms of "flashback" type symptoms, denies racing thoughts except when contemplating discharge. Patient states he has been sleeping well and denies nightmares. Patient remains more visible on unit and has been participating in groups, is more sociable but continues to isolate to room in between groups. Patient states he continues to adjust thyroid medication, feels his energy level is improving, and denies all medication side effects. Patient continues to take hydroxyzine as needed approximately 1-2 times per day, notes medication remains generally effective at helping to reduce anxiety symptoms. Patient denies challenges with appetite and concentration, reports energy level continues to improve. Patient presents with no signs of acute distress and indicates he continues to feel safe on unit. Patient remains in agreement with discharge to temporary housing with eventual physician to [facility]. Patient was again encouraged to consider participating in substance abuse treatment. VITAL SIGNS: See below NEW TEST RESULTS: No new results. On admission Chloride elevated, TSH elevated, AST low on admission CURRENT MEDICATIONS: See below. MENTAL STATUS EXAMINATION: Appearance: 25-year-old , father of two children who appears stated age , exhibits adequate personal hygiene today, makes improved eye contact today Behavior: Calm, cooperative, no psychomotor agitation Attitude: Pleasant, less anxious, cooperative with assessment Speech: Normal rate, rhythm, volume, increased spontaneity, more articulate and appropriately expressive Thought Content: Denies current suicidal/homicidal ideation. Denies auditory/ visual hallucination. Does not appear to be responding to internal stimuli. Does not appear internally preoccupied. Denies "flashbacks" of memories from past, reiterates when experiences memories themselves are non-distressing. Patient continues to report that sensory experience is not audiovisual hallucination and denies all command element. Thought Process: Logical, linear, goal-oriented. Mood: "Pretty good, better." Affect: Constricted, brightens at times, congruent with mood Cognition: Appears intact Fund of knowledge: Improvement Orientation: Oriented to person, place, time Insight and Judgement: Fair, continue to improvement DIAGNOSES: Major depressive disorder, recurrent, moderate, polysubstance use disorder, rule out OCD, rule out bipolar disorder, rule out substance-induced mood disorder ASSESSMENT: Patient is 25-year-old male who is today observed to be up out of bed and meets with typewriters functional tester in office. Patient remains more engageable and presents with improved energy level and appears less depressed. Patient denies all safety concerns and reports continuing reduction to symptoms of anxiety, racing thoughts, and "flashback" symptoms. Patient remains able to effectively engage in the safety planning process and is able to verbalize how to access supportive services on the unit when needed. Patient indicates he will continue to consider participating in outpatient substance abuse treatment, reiterates he wants to discharge to [facility] housing and will participate in outpatient psychotherapy and medication management services. Patient indicates today he is not interested in being discharged to temporary housing in [place], rather wants to now be discharged temporary housing in [facility]. Will continue to monitor patient for medication side effects. MANAGEMENT PLAN: Continue Seroquel 50 mg po q am and 150 mg po q hs, continue hydroxyzine 50 mg po q 4 hours PRN anxiety/agitation Maintain safety precautions Patient to attend groups and participate in unit programming to develop coping strategies Engage patient in discharge planning process and arrange meeting with support system/case packer and sealer to ensure safe and effective discharge planning, patient currently requesting [facility] services, is also being encouraged to consider substance abuse treatment Patient to follow up with PCM upon discharge Vital Signs Vital Sign - Last 24 Hours 07/27/16 07/27/16 06:23 18:00 Temp 96.9 97.6 Pulse 65 90 Resp 16 B/P 132/68 134/82 O2 Delivery Room Air Current Medications Current Medications Acetaminophen (Tylenol) 650 mg Q6HP PRN PO HEADACHE or DISCOMFORT Last administered on 07/26/16 09:12; Start 07/18/16 at 14:00; Stop 08/17/16 at 13:59 Al Hydrox/Mg Hydrox/Simethicone (Mylanta) 30 ml Q4HP PRN PO HEARTBURN/ INDIGESTION; Start 07/18/16 at 14:00; Stop 08/17/16 at 13:59 Amoxicillin/ Clavulanate Potassium (Augmentin) 875 mg BID PO Last administered on 07/27/16 09:47; Start 07/22/16 at 21:00; Stop 08/01/16 at 09:01 Fluticasone Propionate (Flonase 0.05% Nasal [place]) 2 SPRAYS IN EACH NOSTRIL ONCE ONCE NA ; Start 07/18/16 at 09:30; Stop 07/18/16 at 09:31; Status DC Home Med (Med Rec Complete!) ASDIRECTED XX ; Start 07/18/16 at 10:30; Stop at 10:31; Status DC Hydroxyzine HCl (Atarax) 50 mg Q4HP PRN PO ANXIETY/AGITATION Last administered on 07/27/16 09:47; Start 07/19/16 at 18:45; Stop 08/18/16 at 18:44 Ketoconazole (Nizoral) Apply to feet b/l BID BID TOP Last administered on 13:02; Start 07/27/16 at 09:00; Stop 08/26/16 at 08:59 Levothyroxine Sodium (Synthroid) 0.075 mg DAILY@06 PO Last administered on 05:49; Start 07/19/16 at 06:00; Stop 08/18/16 at 05:59 Magnesium Hydroxide (Milk Of Magnesia) 30 ml DAILYPRN PRN PO CONSTIPATION Last administered on 07/26/16 18:18; Start 07/18/16 at 14:00; Stop 08/17/16 at 13:59 Nicotine (Nicoderm Cq 21mg) 1 patch DAILY TD Last administered on 07/27/16 09: 47; Start 07/18/16 at 09:00; Stop 08/17/16 at 08:59 Oxymetazoline HCl (Afrin) 30 spray STK-MED ONCE As Ordered ; Start 07/18/16 at 09:06; Stop 07/18/16 at 09:07; Status DC Quetiapine Fumarate (SEROquel) 50 mg QAM PO Last administered on 07/27/16 09:47 ; Start 07/24/16 at 09:00; Stop 08/23/16 at 08:59 Quetiapine Fumarate (SEROquel) 50 mg QHS PO Last administered on 07/20/16at 20: 34; Start 07/19/16 at 21:00; Stop 07/21/16 at 16:53; Status DC Quetiapine Fumarate (SEROquel) 100 mg QHS PO Last administered on 07/23/16at 20 :23; Start 07/21/16 at 21:00; Stop 07/24/16 at 10:45; Status DC Quetiapine Fumarate (SEROquel) 150 mg QHS PO Last administered on 07/26/16 20: 11; Start 07/24/16 at 21:00; Stop 08/23/16 at 20:59 Trazodone HCl (Desyrel) 50 mg QHSP PRN PO INSOMNIA Last administered on at 20:34; Start 07/18/16 at 14:00; Stop 07/21/16 at 16:53; Status DC Allergies Coded Allergies: Diphenhydramine (Verified Allergy, Unknown, 02/18/16) Unknown reaction, told to ED per report Latex (Unverified Allergy, Unknown, 01/10/15) Khloe Corley Jul 27, 2016 20:15
[2016-07-27] MEDS: QUEtiapine FUMARATE 100 MG TAB PO SCH (20:23)
[2016-07-28] MEDS: LEVOTHYROXINE 0.075 MG TAB (75 MCG) PO SCH (06:06)
[2016-07-28 06:26] VITALS: BP 132/63
[2016-07-28] MEDS: AUGMENTIN 875 MG TAB PO SCH ×2 (08:06→20:11)
[2016-07-28] MEDS: NICOTINE 21MG/24HR 1 EA TRANSDERMAL TD SCH (08:06)
[2016-07-28] MEDS: QUEtiapine FUMARATE 50 MG TAB PO SCH (08:06)
[2016-07-28] MEDS: KETOCONAZOLE 2% CREAM TOP SCH ×2 (08:07→20:12)
--- NOTE | 2016-07-28 08:13 | IPNPDOC ---
Assessment/Plan Date Seen The patient was seen on 07/27/16. Problems Problems: (1) URI (upper respiratory infection) Status: Acute Problem Text: Pt finishing Augmentin and is feeling better (2) Dermatophytosis of foot Status: Acute Problem Text: add Ketoconazole cream to feet B/L Plan / VTE VTE Prophylaxis Ordered?: No (ambulatory) Subjective Review of Systems CC/HPI The patient is a 26-year-old male admitted with a reason for visit of Major Depressive Disorder. Events since last encounter pt with itchy rash on feet. Pulmonary: Denies: Cough, Dyspnea Cardiovascular: Denies: Chest Pain, Lt Headedness, Orthopnea, Palpitations, Paroxysmal Noc. Dyspnea Gastrointestinal: Denies: Abdominal Pain, Diarrhea, Nausea, Vomiting Genitourinary: Denies: Dysuria, Frequency, Incontinence, Retention Objective Physical Examination General Exam: Positive: Alert, No Acute Distress Chest Exam: Positive: Clear to auscultation, Normal air movement Heart Exam: Positive: Normal S1, Normal S2, Rate Normal, Regular Rhythm, Negative: Murmurs, Rubs Skin Exam: Positive: Nl turgor and temperature, Rash (erythematous rash between toes and on soles b/l) Vital Signs/I&O Vital Signs Date Time Temp Pulse Resp B/P Pulse Ox O2 Delivery O2 Flow Rate FiO2 07/28/16 06:26 96.7 77 16 132/63 07/27/16 18:00 Room Air Chloe Llanes Jul 28, 2016 08:13
[2016-07-28] MEDS ORDERED: LEVO75TA4 PO (08:15)
[2016-07-28] MEDS ORDERED: AMOX875T2 PO (08:15)
[2016-07-28] MEDS ORDERED: KETO2CR TOP (08:15)
[2016-07-28] MEDS ORDERED: QUET5TAB PO (09:17)
[2016-07-28] MEDS ORDERED: QUET1TAB8 PO (09:17)
[2016-07-28] MEDS ORDERED: HYDRO50TAB PO (09:17)
[2016-07-28] MEDS ORDERED: QUEtiapine FUMARATE 50 MG TAB PO ONE (11:45)
[2016-07-28 18:00] VITALS: BP 133/73
--- NOTE | 2016-07-28 18:39 | IPNPDOC ---
[facility] Progress Note Progress Note DATE: 07/28/16 HISTORY: Patient was seen today to evaluate treatment progress on the inpatient unit. Patient is observed to be in bed resting between groups but is easily roused and gets up to meet with quality analyst/technical writer in office. Patient indicates he had a "meltdown" last night on the telephone his mother. Patient states, "I asked her if she would pay for a trailer and some land for me to live on. My parents make enough money to pay for it with 2 weeks pay but my mother said she wouldn't." Patient added, "I feel like no one in my family wants me and they think I'm a lost cause." Patient indicates he became angry and agitated, threw phone and has been increasingly depressed since. Patient is today requesting dose increase to daytime Seroquel he feels like medication "wears off during the day. " Patient today reports 7/10 anxiety, 7/10 depression, denies suicidal and homicidal ideation, denies audiovisual hallucinations, and denies "flashback" type symptoms. Patient denies medication side effects including sedation. Patient continues to verbalize that his symptoms are "situational," states he does not feel prepared for discharge to longterm in [place], verbalizes awareness that the program he was interested in [facility] will not be open until August. Patient states he has been sleeping well and denies nightmares, reports reduced energy and concentration levels, symptoms of lethargy, reports stable appetite. Patient continues to adjust to recently restarted thyroid medication and is agreeable to Seroquel daytime dose increase. Patient has not requested hydroxyzine for symptoms of anxiety today. Patient remains in agreement with discharge to temporary housing with eventual physician to [facility]. Patient was again encouraged to consider participating in substance abuse treatment. VITAL SIGNS: See below NEW TEST RESULTS: No new results. On admission Chloride elevated, TSH elevated, AST low on admission CURRENT MEDICATIONS: See below. MENTAL STATUS EXAMINATION: Appearance: 25-year-old , father of two children who appears stated age , exhibits adequate personal hygiene today, makes improved eye contact today Behavior: Calm, cooperative, no psychomotor agitation Attitude: Irritable but cooperative with assessment Speech: Normal rate, rhythm, volume Thought Content: Denies current suicidal/homicidal ideation. Denies auditory/ visual hallucination. Does not appear to be responding to internal stimuli. Does not appear internally preoccupied. Denies "flashbacks" of memories from past, reiterates when experiences memories themselves are non-distressing. Patient continues to report that sensory experience is not audiovisual hallucination and denies all command element. Thought Process: Logical, linear, goal-oriented. Reports racing thoughts last night related to family Mood: "Down" Affect: Blunted, congruent with mood Cognition: Appears intact Fund of knowledge: Fair Orientation: Oriented to person, place, time Insight and Judgement: Limited DIAGNOSES: Major depressive disorder, recurrent, moderate, polysubstance use disorder, rule out OCD, rule out bipolar disorder, rule out substance-induced mood disorder ASSESSMENT: Patient is 25-year-old male who is today observed to more depressed , indicates he became agitated after telephone conversation with mother last night, adds he feels more depressed due to feeling rejected by family. Patient indicates today he does not feel prepared for discharge, denies symptoms of suicidal or homicidal ideation and "flashback" symptoms. Patient indicates he experienced racing thoughts after him with his mother last night but states Seroquel is generally effective in helping to control symptoms. Patient is today requesting increased to daytime Seroquel dose due to feeling medication becomes ineffective in afternoon, patient denies medication side effects. Patient remains able to effectively engage in the safety planning process and is able to verbalize how to access supportive services on the unit when needed. Patient indicates he will continue to consider participating in outpatient substance abuse treatment, reiterates he wants to discharge to [facility] housing and will participate in outpatient psychotherapy and medication management services. Patient indicates he is now willing to be discharged to be [place] [place] longterm for temporary housing while he awaits admission to [facility]. Will increase Seroquel to 100 mg po q am and 150 q hs and will continue to monitor for medication side effects. MANAGEMENT PLAN: Increase Seroquel to 100 mg po q am and 150 mg po q hs, continue hydroxyzine 50 mg po q 4 hours PRN anxiety/agitation Maintain safety precautions Patient to attend groups and participate in unit programming to develop coping strategies Engage patient in discharge planning process and arrange meeting with support system/case maker to ensure safe and effective discharge planning, patient currently requesting TLS services, is also being encouraged to consider substance abuse treatment Patient to follow up with PCM upon discharge Vital Signs Vital Sign - Last 24 Hours 07/28/16 06:26 Temp 96.7 Pulse 77 Resp 16 B/P 132/63 Current Medications Current Medications Acetaminophen (Tylenol) 650 mg Q6HP PRN PO HEADACHE or DISCOMFORT Last administered on 07/26/16 09:12; Start 07/18/16 at 14:00; Stop 08/17/16 at 13:59 Al Hydrox/Mg Hydrox/Simethicone (Mylanta) 30 ml Q4HP PRN PO HEARTBURN/ INDIGESTION; Start 07/18/16 at 14:00; Stop 08/17/16 at 13:59 Amoxicillin/ Clavulanate Potassium (Augmentin) 875 mg BID PO Last administered on 07/28/16 08:06; Start 07/22/16 at 21:00; Stop 08/01/16 at 09:01 Fluticasone Propionate (Flonase 0.05% Nasal [place]) 2 SPRAYS IN EACH NOSTRIL ONCE ONCE NA ; Start 07/18/16 at 09:30; Stop 07/18/16 at 09:31; Status DC Home Med (Med Rec Complete!) ASDIRECTED XX ; Start 07/18/16 at 10:30; Stop at 10:31; Status DC Hydroxyzine HCl (Atarax) 50 mg Q4HP PRN PO ANXIETY/AGITATION Last administered on 07/27/16 20:23; Start 07/19/16 at 18:45; Stop 08/18/16 at 18:44 Ketoconazole (Nizoral) Apply to feet b/l BID BID TOP Last administered on 08:07; Start 07/27/16 at 09:00; Stop 08/26/16 at 08:59 Levothyroxine Sodium (Synthroid) 0.075 mg DAILY@06 PO Last administered on 06:06; Start 07/19/16 at 06:00; Stop 08/18/16 at 05:59 Magnesium Hydroxide (Milk Of Magnesia) 30 ml DAILYPRN PRN PO CONSTIPATION Last administered on 07/26/16 18:18; Start 07/18/16 at 14:00; Stop 08/17/16 at 13:59 Nicotine (Nicoderm Cq 21mg) 1 patch DAILY TD Last administered on 07/28/16 08: 06; Start 07/18/16 at 09:00; Stop 08/17/16 at 08:59 Oxymetazoline HCl (Afrin) 30 spray STK-MED ONCE As Ordered ; Start 07/18/16 at 09:06; Stop 07/18/16 at 09:07; Status DC Quetiapine Fumarate (SEROquel) 50 mg NOW ONCE PO Last administered on 12:14; Start 07/28/16 at 11:45; Stop 07/28/16 at 11:52; Status DC Quetiapine Fumarate (SEROquel) 50 mg QAM PO Last administered on 07/28/16 08:06 ; Start 07/24/16 at 09:00; Stop 07/28/16 at 11:49; Status DC Quetiapine Fumarate (SEROquel) 50 mg QHS PO Last administered on 07/20/16at 20: 34; Start 07/19/16 at 21:00; Stop 07/21/16 at 16:53; Status DC Quetiapine Fumarate (SEROquel) 100 mg QAM PO ; Start 07/29/16 at 09:00; Stop 08/28 at 08:59 Quetiapine Fumarate (SEROquel) 100 mg QHS PO Last administered on 07/23/16at 20 :23; Start 07/21/16 at 21:00; Stop 07/24/16 at 10:45; Status DC Quetiapine Fumarate (SEROquel) 150 mg QHS PO Last administered on 07/27/16 20: 23; Start 07/24/16 at 21:00; Stop 08/23/16 at 20:59 Trazodone HCl (Desyrel) 50 mg QHSP PRN PO INSOMNIA Last administered on at 20:34; Start 07/18/16 at 14:00; Stop 07/21/16 at 16:53; Status DC Allergies Coded Allergies: Diphenhydramine (Verified Allergy, Unknown, 02/18/16) Unknown reaction, told to ED per report Latex (Unverified Allergy, Unknown, 01/10/15) Khloe Corley Jul 28, 2016 18:39
[2016-07-28] MEDS: ACETAMINOPHEN TAB 650MG DOSE (2X325MG) PO PRN (20:12)
[2016-07-28] MEDS: QUEtiapine FUMARATE 100 MG TAB PO SCH (20:12)
[2016-07-28] MEDS: hydrOXYzine 50 MG TAB PO PRN (20:13)
[2016-07-29 06:00] VITALS: BP 157/79
[2016-07-29] MEDS: LEVOTHYROXINE 0.075 MG TAB (75 MCG) PO SCH (06:00)
[2016-07-29] MEDS: NICOTINE 21MG/24HR 1 EA TRANSDERMAL TD SCH (08:29)
[2016-07-29] MEDS: QUEtiapine FUMARATE 100 MG TAB PO SCH ×2 (08:29→20:36)
[2016-07-29] MEDS: AUGMENTIN 875 MG TAB PO SCH ×2 (08:29→20:35)
[2016-07-29] MEDS: KETOCONAZOLE 2% CREAM TOP SCH ×2 (08:31→20:37)
--- NOTE | 2016-07-29 11:57 | IPNPDOC ---
[facility] Progress Note Progress Note DATE: 07/29/16 HISTORY: Patient was seen today to evaluate treatment progress on the inpatient unit. PaPatient was observed patient was observed to be sleeping in bed, was easily roused and got up to meet with music writer in office. Patient indicated he continues to feel depressed and he is "very stressed" regarding discharge planning. Patient reports increased to level of depression and anxiety, denies audiovisual hallucinations, denies suicidal and homicidal ideation, and denies urge to engage in self-injurious behavior. Patient indicates sleep has been better, denies nightmares, further denies "flashback" type symptoms. Upholstery Sewer broached subject of antidepressant medication trial again with patient and patient, again, responded by stating that the only medication that has "ever really been effective" for him is Ativan. Patient indicated he has trialed several antidepressants, indicates he has history of "being very sensitive to medication," is able to remember taking Wellbutrin and Effexor with reported side effects. Patient denies history of mood instability while taking antidepressant medication and indicates today he is willing to trial another antidepressant in effort to help further reduce symptoms of anxiety and depression. Patient continues to utilize hydroxyzine PRN medication on average 2 times per day with good effect reported the patient denies medication side effects. Patient indicates recent dose increase Seroquel is helpful, he denies anger and agitation, further denies sedation. Patient and she needs to report reduced energy and concentration levels, endorses symptoms of lethargy, states his appetite is stable. Patient continues to adjust to recently restarted thyroid medication. Patient remains in agreement with discharge to temporary housing with eventual physician to [facility], is today indicating that his mother and he would like him to go to the [facility] in [place], [place]. Patient is aware he will be discharged early next week and was again encouraged to consider participating in substance abuse treatment. VITAL SIGNS: See below. Patient's blood pressure this morning was 157/78 with a pulse of 108 when taking with machine. On recheck taken manually patient's blood pressure was 132/82 with a pulse of 95. PA was asked to evaluate patient' s blood pressure status. NEW TEST RESULTS: No new results. On admission Chloride elevated, TSH elevated, AST low on admission. EKG from 02/19/16 Normal sinus rhythm Nonspecific T wave abnormality. No significant change when compared to prior tracing of 01/09/2015 CURRENT MEDICATIONS: See below. MENTAL STATUS EXAMINATION: Appearance: 25-year-old , father of two children who appears stated age , exhibits adequate personal hygiene today, makes improved eye contact today Behavior: Calm, cooperative, no psychomotor agitation Attitude: Less irritable today, cooperative with assessment Speech: Normal rate, rhythm, volume Thought Content: Denies current suicidal/homicidal ideation. Denies auditory/ visual hallucination. Does not appear to be responding to internal stimuli. Does not appear internally preoccupied. Denies "flashbacks" of memories from past, reiterates when experiences memories themselves are non-distressing. Patient continues to report that sensory experience is not audiovisual hallucination and denies all command element. Thought Process: Logical, linear, goal-oriented. Reports racing thoughts at night related to family and discharge planning Mood: "Kind of down, worried I guess you would say" Affect: Blunted, congruent with mood Cognition: Appears intact Fund of knowledge: Fair Orientation: Oriented to person, place, time Insight and Judgement: Limited DIAGNOSES: Major depressive disorder, recurrent, moderate, polysubstance use disorder, rule out OCD, rule out bipolar disorder, rule out substance-induced mood disorder ASSESSMENT: Patient is 25-year-old male who is today observed to continue to appear depressed. Patient states daytime Seroquel dose increase has helped to reduce daytime symptoms of anxiety and agitation. Patient states he continues to not feel prepared for discharge due to symptoms of depression and anxiety, denies symptoms of suicidal or homicidal ideation and "flashback" symptoms. Patient states he is today interested in antidepressant medication trial, indicates he has not taken Zoloft in the past, and informs music writer that he has high sensitivity to medications. Patient remains able to effectively engage in the safety planning process and is able to verbalize how to access supportive services on the unit when needed. Patient indicates he will continue to consider participating in outpatient substance abuse treatment, reiterates he wants to discharge to [facility] housing and will participate in outpatient psychotherapy and medication management services. Patient indicates he is now wanting to be discharged to the [facility] for temporary housing while he awaits admission to [facility]. Patient and mother feel that [facility] will provide patient with increased support system prized of family living in area, and will reduce likelihood of patient coming into contact with previous drug and alcohol use associates. Will continue to monitor patient's response to Seroquel and will initiate Zoloft in effort to further reduce symptoms of anxiety and depression. MANAGEMENT PLAN: Initiate Zoloft 25 mg po q am X 2 days then increase to 50 mg po q am if tolerated by patient. Continue Seroquel 100 mg po q am and 150 mg po q hs, continue hydroxyzine 50 mg po q 4 hours PRN anxiety/agitation Maintain safety precautions Patient to attend groups and participate in unit programming to develop coping strategies Engage patient in discharge planning process and arrange meeting with support system/clinical case manager to ensure safe and effective discharge planning, patient currently requesting TLS services, is also being encouraged to consider substance abuse treatment Patient to follow up with PCM upon discharge Vital Signs Vital Sign - Last 24 Hours 07/28/16 07/29/16 18:00 06:00 Temp 98.1 97.5 Pulse 101 108 Resp 16 20 B/P 133/73 157/79 O2 Delivery Room Air Current Medications Current Medications Acetaminophen (Tylenol) 650 mg Q6HP PRN PO HEADACHE or DISCOMFORT Last administered on 07/28/16 20:12; Start 07/18/16 at 14:00; Stop 08/17/16 at 13:59 Al Hydrox/Mg Hydrox/Simethicone (Mylanta) 30 ml Q4HP PRN PO HEARTBURN/ INDIGESTION; Start 07/18/16 at 14:00; Stop 08/17/16 at 13:59 Amoxicillin/ Clavulanate Potassium (Augmentin) 875 mg BID PO Last administered on 07/29/16 08:29; Start 07/22/16 at 21:00; Stop 08/01/16 at 09:01 Fluticasone Propionate (Flonase 0.05% Nasal [place]) 2 SPRAYS IN EACH NOSTRIL ONCE ONCE NA ; Start 07/18/16 at 09:30; Stop 07/18/16 at 09:31; Status DC Home Med (Med Rec Complete!) ASDIRECTED XX ; Start 07/18/16 at 10:30; Stop at 10:31; Status DC Hydroxyzine HCl (Atarax) 50 mg Q4HP PRN PO ANXIETY/AGITATION Last administered on 07/28/16 20:13; Start 07/19/16 at 18:45; Stop 08/18/16 at 18:44 Ketoconazole (Nizoral) Apply to feet b/l BID BID TOP Last administered on 08:31; Start 07/27/16 at 09:00; Stop 08/26/16 at 08:59 Levothyroxine Sodium (Synthroid) 0.075 mg DAILY@06 PO Last administered on 06:00; Start 07/19/16 at 06:00; Stop 08/18/16 at 05:59 Magnesium Hydroxide (Milk Of Magnesia) 30 ml DAILYPRN PRN PO CONSTIPATION Last administered on 07/26/16 18:18; Start 07/18/16 at 14:00; Stop 08/17/16 at 13:59 Nicotine (Nicoderm Cq 21mg) 1 patch DAILY TD Last administered on 07/29/16 08: 29; Start 07/18/16 at 09:00; Stop 08/17/16 at 08:59 Oxymetazoline HCl (Afrin) 30 spray STK-MED ONCE As Ordered ; Start 07/18/16 at 09:06; Stop 07/18/16 at 09:07; Status DC Quetiapine Fumarate (SEROquel) 50 mg NOW ONCE PO Last administered on 12:14; Start 07/28/16 at 11:45; Stop 07/28/16 at 11:52; Status DC Quetiapine Fumarate (SEROquel) 50 mg QAM PO Last administered on 07/28/16 08:06 ; Start 07/24/16 at 09:00; Stop 07/28/16 at 11:49; Status DC Quetiapine Fumarate (SEROquel) 50 mg QHS PO Last administered on 07/20/16at 20: 34; Start 07/19/16 at 21:00; Stop 07/21/16 at 16:53; Status DC Quetiapine Fumarate (SEROquel) 100 mg QAM PO Last administered on 07/29/16 08: 29; Start 07/29/16 at 09:00; Stop 08/28/16 at 08:59 Quetiapine Fumarate (SEROquel) 100 mg QHS PO Last administered on 07/23/16at 20 :23; Start 07/21/16 at 21:00; Stop 07/24/16 at 10:45; Status DC Quetiapine Fumarate (SEROquel) 150 mg QHS PO Last administered on 07/28/16t 20: 12; Start 07/24/16 at 21:00; Stop 08/23/16 at 20:59 Trazodone HCl (Desyrel) 50 mg QHSP PRN PO INSOMNIA Last administered on at 20:34; Start 07/18/16 at 14:00; Stop 07/21/16 at 16:53; Status DC Allergies Coded Allergies: Diphenhydramine (Verified Allergy, Unknown, 02/18/16) Unknown reaction, told to ED per report Latex (Unverified Allergy, Unknown, 01/10/15) Khloe Corley Jul 29, 2016 11:56 Coded Allergies: Diphenhydramine (Verified Allergy, Unknown, 02/18/16) Unknown reaction, told to ED per report Latex (Unverified Allergy, Unknown, 01/10/15) Khloe Corley Jul 29, 2016 11:56
[2016-07-29] MEDS: SERTRALINE HCL 25 MG TABLET PO SCH (12:31)
[2016-07-29] MEDS: hydrOXYzine 50 MG TAB PO PRN (14:33)
--- NOTE | 2016-07-29 14:57 | IPNPDOC ---
Assessment/Plan Date Seen The patient was seen on 07/29/16. Problems Problems: (1) URI (upper respiratory infection) Status: Acute Problem Text: Pt finishing Augmentin and is feeling better (2) Dermatophytosis of foot Status: Acute Problem Text: * Ketoconazole cream to feet B/L (3) Elevated heart rate with elevated blood pressure without diagnosis of hypertension Status: Acute Problem Text: * BPs have been adequately controlled, goal BP <140/90 * Manual BP today 132/82 (157/79 was with machine). * Will add VIOLET diet * Will update EKG * HR trend 65-108 * Psych medication (seroquel) could contribute to elevated HR. (4) Hypothyroid Status: Acute Problem Text: * TSH was elevated on admission. * Pt was restarted on supplement. * plan is to recheck FT4/TSH as outpt 4 weeks Plan / VTE VTE Prophylaxis Ordered?: No (ambulatory) Subjective Review of Systems CC/HPI The patient is a 26-year-old male admitted with a reason for visit of Major Depressive Disorder. Events since last encounter Pt asymptomatic. HR trend 65-108 BP 130s/60s-70s, isolated 157/79. ENT: Denies: Dysphagia, Ear Pain, Head Aches Pulmonary: Denies: Cough, Dyspnea Cardiovascular: Denies: Chest Pain, Lt Headedness, Orthopnea, Palpitations, Paroxysmal Noc. Dyspnea Gastrointestinal: Denies: Abdominal Pain, Diarrhea, Nausea, Vomiting Genitourinary: Denies: Dysuria, Frequency, Incontinence, Retention Objective Physical Examination General Exam: Positive: Alert, No Acute Distress Chest Exam: Positive: Clear to auscultation, Normal air movement Heart Exam: Positive: Normal S1, Normal S2, Rate Normal, Regular Rhythm, Negative: Murmurs, Rubs Skin Exam: Positive: Nl turgor and temperature, Rash (erythematous rash between toes and on soles b/l) Vital Signs/I&O Vital Signs Date Time Temp Pulse Resp B/P Pulse Ox O2 Delivery O2 Flow Rate FiO2 07/29/16 06:00 97.5 108 20 157/79 07/28/16 18:00 Room Air Chloe Llanes Jul 29, 2016 14:57
[2016-07-29 18:16] VITALS: BP 145/75
[2016-07-30] MEDS: LEVOTHYROXINE 0.075 MG TAB (75 MCG) PO SCH (06:23)
[2016-07-30 06:39] VITALS: BP 121/69
[2016-07-30] MEDS: SERTRALINE HCL 25 MG TABLET PO SCH (08:10)
[2016-07-30] MEDS: AUGMENTIN 875 MG TAB PO SCH ×2 (08:10→20:06)
[2016-07-30] MEDS: NICOTINE 21MG/24HR 1 EA TRANSDERMAL TD SCH (08:10)
[2016-07-30] MEDS: QUEtiapine FUMARATE 100 MG TAB PO SCH ×2 (08:10→20:06)
[2016-07-30] MEDS: KETOCONAZOLE 2% CREAM TOP SCH ×2 (08:10→20:06)
--- NOTE | 2016-07-30 14:59 | ECGEPIP ---
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
[2016-07-30 18:00] VITALS: BP 158/98
[2016-07-30] MEDS: ACETAMINOPHEN TAB 650MG DOSE (2X325MG) PO PRN (20:07)
[2016-07-31] MEDS: LEVOTHYROXINE 0.075 MG TAB (75 MCG) PO SCH (06:02)
[2016-07-31] MEDS: hydrOXYzine 50 MG TAB PO PRN ×2 (06:09→20:14)
[2016-07-31 06:31] VITALS: BP 142/86
[2016-07-31] MEDS: NICOTINE 21MG/24HR 1 EA TRANSDERMAL TD SCH (08:12)
[2016-07-31] MEDS: SERTRALINE HCL 50 MG TAB PO SCH (08:13)
[2016-07-31] MEDS: QUEtiapine FUMARATE 100 MG TAB PO SCH ×2 (08:13→20:14)
[2016-07-31] MEDS: KETOCONAZOLE 2% CREAM TOP SCH ×2 (08:13→20:14)
[2016-07-31] MEDS: AUGMENTIN 875 MG TAB PO SCH ×2 (08:13→20:14)
[2016-07-31 18:20] VITALS: BP 134/75
[2016-07-31] MEDS: ACETAMINOPHEN TAB 650MG DOSE (2X325MG) PO PRN (20:17)
[2016-08-01 05:53] VITALS: BP 133/75
[2016-08-01] MEDS: LEVOTHYROXINE 0.075 MG TAB (75 MCG) PO SCH (06:14)
[2016-08-01] MEDS: QUEtiapine FUMARATE 100 MG TAB PO SCH ×2 (08:27→21:04)
[2016-08-01] MEDS: SERTRALINE HCL 50 MG TAB PO SCH (08:27)
[2016-08-01] MEDS: AUGMENTIN 875 MG TAB PO SCH (08:28)
[2016-08-01] MEDS: KETOCONAZOLE 2% CREAM TOP SCH ×2 (08:28→21:04)
[2016-08-01] MEDS: NICOTINE 21MG/24HR 1 EA TRANSDERMAL TD SCH (08:28)
[2016-08-01 18:19] VITALS: BP 136/71
--- NOTE | 2016-08-01 20:14 | IPNPDOC ---
[facility] Progress Note Progress Note DATE: 08/01/16 HISTORY: Patient was seen today to evaluate treatment progress on the inpatient unit. Patient was observed to be in bed, was pleasant and cooperative to meet with this staff writer. Patient indicated he is concerned about discharge planning. Patient denies audiovisual hallucinations, denies suicidal and homicidal ideation and denies urge to engage in self-injurious behavior. Patient indicates sleep is better, denies nightmares. Patient indicated he has been improving on current medications and does not feel they need to be changed. Patient continues to adjust to recently restarted thyroid medication. Patient remains in agreement with discharge to temporary housing and is today indicating that his mother and he would like him to go to the [facility] in [place], [place]. Patient is aware he will be discharged early next week and was again encouraged to consider participating in substance abuse treatment. VITAL SIGNS: See below. NEW TEST RESULTS: NEW TEST RESULTS: No new results. On admission Chloride elevated, TSH elevated, AST low on admission. EKG from 02/19/16 Normal sinus rhythm Nonspecific T wave abnormality. No significant change when compared to prior tracing of 01/09/2015 CURRENT MEDICATIONS: See below. MENTAL STATUS EXAMINATION: Appearance: 25-year-old , father of two children who appears stated age, exhibits adequate personal hygiene today, makes good eye contact. Behavior: Calm, cooperative, no psychomotor agitation Attitude: Pleasant and cooperative with assessment Speech: Normal rate, rhythm, volume Thought Content: Denies current suicidal/homicidal ideation. Denies auditory/ visual hallucination. Does not appear to be responding to internal stimuli. Does not appear internally preoccupied. Thought Process: Logical, linear, goal-oriented. Mood: "Pretty good" Affect: Flat, congruent with mood Cognition: Appears intact Fund of knowledge: Fair Orientation: Oriented to person, place, time Insight and Judgement: Limited DIAGNOSES: Major depressive disorder, recurrent, moderate, polysubstance use disorder, rule out OCD, rule out bipolar disorder, rule out substance-induced mood disorder ASSESSMENT: Patient is 25-year-old male who is today observed alone in his room. Patient remains able to effectively engage in the safety planning process and is able to verbalize how to access supportive services on the unit when needed. Patient indicates he will continue to consider participating in outpatient substance abuse treatment, reiterates he wants to discharge to [facility] housing and will participate in outpatient psychotherapy and medication management services. Patient indicates he is now wanting to be discharged to the [facility] for temporary housing while he awaits admission to [facility]. Will continue to monitor patient's response to Seroquel and will initiate Zoloft in effort to further reduce symptoms of anxiety and depression. MANAGEMENT PLAN: Continue Zoloft 50 mg po q am if tolerated by patient. Continue Seroquel 100 mg po q am and 150 mg po q hs, continue hydroxyzine 50 mg po q 4 hours PRN anxiety/agitation Maintain safety precautions Patient to attend groups and participate in unit programming to develop coping strategies Engage patient in discharge planning process and arrange meeting with support system/director of casework to ensure safe and effective discharge planning, patient currently requesting TLS services, is also being encouraged to consider substance abuse treatment Patient to follow up with PCM upon discharge Vital Signs Vital Sign - Last 24 Hours 08/01/16 08/01/16 05:53 18:19 Temp 99.1 98.9 Pulse 95 94 Resp 16 16 B/P 133/75 136/71 Current Medications Current Medications Acetaminophen (Tylenol) 650 mg Q6HP PRN PO HEADACHE or DISCOMFORT Last administered on 07/31/16 20:17; Start 07/18/16 at 14:00; Stop 08/17/16 at 13:59 Al Hydrox/Mg Hydrox/Simethicone (Mylanta) 30 ml Q4HP PRN PO HEARTBURN/ INDIGESTION; Start 07/18/16 at 14:00; Stop 08/17/16 at 13:59 Amoxicillin/ Clavulanate Potassium (Augmentin) 875 mg BID PO Last administered on 08/01/16 08:28; Start 07/22/16 at 21:00; Stop 08/01/16 at 09:01; Status DC Fluticasone Propionate (Flonase 0.05% Nasal [place]) 2 SPRAYS IN EACH NOSTRIL ONCE ONCE NA ; Start 07/18/16 at 09:30; Stop 07/18/16 at 09:31; Status DC Home Med (Med Rec Complete!) ASDIRECTED XX ; Start 07/18/16 at 10:30; Stop at 10:31; Status DC Hydroxyzine HCl (Atarax) 50 mg Q4HP PRN PO ANXIETY/AGITATION Last administered on 07/31/16 20:14; Start 07/19/16 at 18:45; Stop 08/18/16 at 18:44 Ketoconazole (Nizoral) Apply to feet b/l BID BID TOP Last administered on 08:28; Start 07/27/16 at 09:00; Stop 08/26/16 at 08:59 Levothyroxine Sodium (Synthroid) 0.075 mg DAILY@06 PO Last administered on 06:14; Start 07/19/16 at 06:00; Stop 08/18/16 at 05:59 Magnesium Hydroxide (Milk Of Magnesia) 30 ml DAILYPRN PRN PO CONSTIPATION Last administered on 07/26/16 18:18; Start 07/18/16 at 14:00; Stop 08/17/16 at 13:59 Nicotine (Nicoderm Cq 21mg) 1 patch DAILY TD Last administered on 08/01/16 08: 28; Start 07/18/16 at 09:00; Stop 08/17/16 at 08:59 Oxymetazoline HCl (Afrin) 30 spray STK-MED ONCE As Ordered ; Start 07/18/16 at 09:06; Stop 07/18/16 at 09:07; Status DC Quetiapine Fumarate (SEROquel) 50 mg NOW ONCE PO Last administered on 12:14; Start 07/28/16 at 11:45; Stop 07/28/16 at 11:52; Status DC Quetiapine Fumarate (SEROquel) 50 mg QAM PO Last administered on 07/28/16 08:06 ; Start 07/24/16 at 09:00; Stop 07/28/16 at 11:49; Status DC Quetiapine Fumarate (SEROquel) 50 mg QHS PO Last administered on 07/20/16at 20: 34; Start 07/19/16 at 21:00; Stop 07/21/16 at 16:53; Status DC Quetiapine Fumarate (SEROquel) 100 mg QAM PO Last administered on 08/01/16 08: 27; Start 07/29/16 at 09:00; Stop 08/28/16 at 08:59 Quetiapine Fumarate (SEROquel) 100 mg QHS PO Last administered on 07/23/16at 20 :23; Start 07/21/16 at 21:00; Stop 07/24/16 at 10:45; Status DC Quetiapine Fumarate (SEROquel) 150 mg QHS PO Last administered on 07/31/16 20: 14; Start 07/24/16 at 21:00; Stop 08/23/16 at 20:59 Sertraline HCl (Zoloft) 25 mg QAM PO Last administered on 07/30/16 08:10; Start 07/29/16 at 09:00; Stop 07/30/16 at 12:00; Status DC Sertraline HCl (Zoloft) 50 mg QAM PO Last administered on 08/01/16 08:27; Start 07/31/16 at 09:00; Stop 08/31/16 at 09:00 Trazodone HCl (Desyrel) 50 mg QHSP PRN PO INSOMNIA Last administered on at 20:34; Start 07/18/16 at 14:00; Stop 07/21/16 at 16:53; Status DC Allergies Coded Allergies: Diphenhydramine (Verified Allergy, Unknown, 02/18/16) Unknown reaction, told to ED per report Latex (Unverified Allergy, Unknown, 01/10/15) TAYLOR VERA NP Aug 01, 2016 20:14 TRESA MITCHELL MD Aug 02, 2016 14:21
[2016-08-02 06:02] VITALS: BP 147/84
[2016-08-02] MEDS: LEVOTHYROXINE 0.075 MG TAB (75 MCG) PO SCH (06:02)
[2016-08-02] MEDS ORDERED: NICO21PAT TD (07:58)
[2016-08-02] MEDS: NICOTINE 21MG/24HR 1 EA TRANSDERMAL TD SCH (09:00)
[2016-08-02] MEDS: QUEtiapine FUMARATE 100 MG TAB PO SCH ×2 (09:03→20:44)
[2016-08-02] MEDS: KETOCONAZOLE 2% CREAM TOP SCH ×2 (09:03→20:44)
[2016-08-02] MEDS: SERTRALINE HCL 50 MG TAB PO SCH (09:03)
[2016-08-02] MEDS ORDERED: SERT-141 PO (13:20)
[2016-08-02] MEDS ORDERED: HYDRO50TAB PO (13:20)
[2016-08-02] MEDS ORDERED: QUET1TAB8 PO ×2 (13:20)
[2016-08-02 18:00] VITALS: BP 136/68
--- NOTE | 2016-08-02 20:01 | IPNPDOC ---
[facility] Progress Note Progress Note DATE: 08/02/16 HISTORY: Patient was scheduled for discharge today but transportation was not able to be arranged in time to get him down to [place] before the half-way". Patient was seen to evaluate discharge readiness. Patient reported experiencing moderate anxiety as related to discharge planning, reported 2/10 depression noting he feels his depressive symptoms have improved and feels addition of Zoloft is "very helpful." Patient denied suicidal and homicidal thinking, denied urge to engage in self-injurious behavior, and denied audiovisual hallucinations. Patient states he's been sleeping well, denies nightmares symptoms and denies "flashback" symptoms. Patient states he remains prepared for discharge, is aware he will be leaving tomorrow, indicates medication regimen is currently effective, denies all medication side effects. Patient continues to adjust to recently restarted thyroid medication. Patient today is requesting discharge to [place] temporary housing while he awaits TLS, has requested that his medication prescriptions be sent to pharmacy next to temporary housing in [place], is aware that arrangements will be made for him to participate in outpatient psychotherapy and medication management services. Patient is again strongly encouraged to participate in substance abuse treatment. Patient indicates he is in agreement with discharge plan. VITAL SIGNS: See below. NEW TEST RESULTS: NEW TEST RESULTS: No new results. On admission Chloride elevated, TSH elevated, AST low on admission. EKG from 02/19/16 Normal sinus rhythm Nonspecific T wave abnormality. No significant change when compared to prior tracing of 01/09/2015 CURRENT MEDICATIONS: See below. MENTAL STATUS EXAMINATION: Appearance: 25-year-old , father of two children who appears stated age, exhibits adequate personal hygiene today, makes good eye contact. Behavior: Calm, cooperative, no psychomotor agitation Attitude: Pleasant and cooperative with assessment Speech: Normal rate, rhythm, volume Thought Content: Denies current suicidal/homicidal ideation. Denies auditory/ visual hallucination. Does not appear to be responding to internal stimuli. Does not appear internally preoccupied. Thought Process: Logical, linear, goal-oriented. Mood: "Good" Affect: Blunted, congruent with mood Cognition: Appears intact Fund of knowledge: Fair Orientation: Oriented to person, place, time Insight and Judgement: Limited, some improvement DIAGNOSES: Major depressive disorder, recurrent, moderate, polysubstance use disorder, rule out OCD, rule out bipolar disorder, rule out substance-induced mood disorder ASSESSMENT: Patient is 25-year-old male who is today observed to be in his room , appears to be waiting for discharge plans to come to [facility], was informed late in day that he will not be discharging today due to inability to arrange transportation. Patient indicates current medication regimen is effective and notes addition of Zoloft has been helpful in reducing symptoms of depression, denies need for dosing adjustment. 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 Patient is requesting discharge to temporary housing in [place], notes he has clothing, guzman, and is aware his medications have been e scripted to pharmacy located next to temporary housing. Patient has been encouraged to participate in substance abuse treatment, has agreed to participate in outpatient follow-up psychotherapy and medication management services, and is awaiting TLS. Patient indicates current medication regimen is effective and he denies medication side effects. Patient verbalizes agreement with an understanding of discharge plan, and is aware he will be discharging tomorrow. Will continue to monitor patient's response to medication regimen. MANAGEMENT PLAN: Continue Zoloft 50 mg po q am, continue Seroquel 100 mg po q am and 150 mg po q hs, continue hydroxyzine 50 mg po q 4 hours PRN anxiety/ agitation Maintain safety precautions Patient to attend groups and participate in unit programming to develop coping strategies Patient to discharge tomorrow to temporary [facility] in [place] with follow-up outpatient treatment for psychotherapy services and medication management, agrees to consider participating in substance abuse treatment. Patient has also been referred for TLS. Patient to follow up with PCM upon discharge Vital Signs/I&O Vital Signs Date Time Temp Pulse Resp B/P Pulse Ox O2 Delivery O2 Flow Rate FiO2 08/02/16 18:00 98.6 96 16 136/68 07/30/16 18:00 98 Room Air Current Medications Current Medications Acetaminophen (Tylenol) 650 mg Q6HP PRN PO HEADACHE or DISCOMFORT Last administered on 07/31/16 20:17; Start 07/18/16 at 14:00; Stop 08/17/16 at 13:59 Al Hydrox/Mg Hydrox/Simethicone (Mylanta) 30 ml Q4HP PRN PO HEARTBURN/ INDIGESTION; Start 07/18/16 at 14:00; Stop 08/17/16 at 13:59 Amoxicillin/ Clavulanate Potassium (Augmentin) 875 mg BID PO Last administered on 08/01/16 08:28; Start 07/22/16 at 21:00; Stop 08/01/16 at 09:01; Status DC Fluticasone Propionate (Flonase 0.05% Nasal [place]) 2 SPRAYS IN EACH NOSTRIL ONCE ONCE NA ; Start 07/18/16 at 09:30; Stop 07/18/16 at 09:31; Status DC Home Med (Med Rec Complete!) ASDIRECTED XX ; Start 07/18/16 at 10:30; Stop at 10:31; Status DC Hydroxyzine HCl (Atarax) 50 mg Q4HP PRN PO ANXIETY/AGITATION Last administered on 07/31/16 20:14; Start 07/19/16 at 18:45; Stop 08/18/16 at 18:44 Ketoconazole (Nizoral) Apply to feet b/l BID BID TOP Last administered on 09:03; Start 07/27/16 at 09:00; Stop 08/26/16 at 08:59 Levothyroxine Sodium (Synthroid) 0.075 mg DAILY@06 PO Last administered on 08/02 06:02; Start 07/19/16 at 06:00; Stop 08/18/16 at 05:59 Magnesium Hydroxide (Milk Of Magnesia) 30 ml DAILYPRN PRN PO CONSTIPATION Last administered on 07/26/16 18:18; Start 07/18/16 at 14:00; Stop 08/17/16 at 13:59 Nicotine (Nicoderm Cq 21mg) 1 patch DAILY TD Last administered on 08/01/16 08: 28; Start 07/18/16 at 09:00; Stop 08/17/16 at 08:59 Oxymetazoline HCl (Afrin) 30 spray STK-MED ONCE As Ordered ; Start 07/18/16 at 09:06; Stop 07/18/16 at 09:07; Status DC Quetiapine Fumarate (SEROquel) 50 mg NOW ONCE PO Last administered on 12:14; Start 07/28/16 at 11:45; Stop 07/28/16 at 11:52; Status DC Quetiapine Fumarate (SEROquel) 50 mg QAM PO Last administered on 07/28/16 08:06 ; Start 07/24/16 at 09:00; Stop 07/28/16 at 11:49; Status DC Quetiapine Fumarate (SEROquel) 50 mg QHS PO Last administered on 07/20/16at 20: 34; Start 07/19/16 at 21:00; Stop 07/21/16 at 16:53; Status DC Quetiapine Fumarate (SEROquel) 100 mg QAM PO Last administered on 08/02/16 09: 03; Start 07/29/16 at 09:00; Stop 08/28/16 at 08:59 Quetiapine Fumarate (SEROquel) 100 mg QHS PO Last administered on 07/23/16at 20 :23; Start 07/21/16 at 21:00; Stop 07/24/16 at 10:45; Status DC Quetiapine Fumarate (SEROquel) 150 mg QHS PO Last administered on 08/01/16 21: 04; Start 07/24/16 at 21:00; Stop 08/23/16 at 20:59 Sertraline HCl (Zoloft) 25 mg QAM PO Last administered on 07/30/16 08:10; Start 07/29/16 at 09:00; Stop 07/30/16 at 12:00; Status DC Sertraline HCl (Zoloft) 50 mg QAM PO Last administered on 08/02/16 09:03; Start 07/31/16 at 09:00; Stop 08/31/16 at 09:00 Trazodone HCl (Desyrel) 50 mg QHSP PRN PO INSOMNIA Last administered on 20:34; Start 07/18/16 at 14:00; Stop 07/21/16 at 16:53; Status DC Allergies Coded Allergies: Diphenhydramine (Verified Allergy, Unknown, 02/18/16) Unknown reaction, told to ED per report Latex (Unverified Allergy, Unknown, 01/10/15) Khloe Corley Aug 02, 2016 20:01
[2016-08-03] MEDS: LEVOTHYROXINE 0.075 MG TAB (75 MCG) PO SCH (06:10)
[2016-08-03 06:31] VITALS: BP 139/84
[2016-08-03] MEDS: NICOTINE 21MG/24HR 1 EA TRANSDERMAL TD SCH (09:00)
[2016-08-03] MEDS: KETOCONAZOLE 2% CREAM TOP SCH (09:30)
[2016-08-03] MEDS: QUEtiapine FUMARATE 100 MG TAB PO SCH (09:30)
[2016-08-03] MEDS: SERTRALINE HCL 50 MG TAB PO SCH (09:30)
--- NOTE | 2016-08-04 00:55 | DS.PDOC ---
[facility] Discharge Summary Discharge Summary DATE OF ADMISSION: Jul 18, 2016 at 12:25 DATE OF DISCHARGE: Aug 03, 2016 at 14:36 HISTORY: Patient is a 25-year-old male who has had multiple inpatient admissions , last received inpatient treatment from [facility] in January 2016 for depression and suicidal ideation and audiovisual hallucinations. Patient indicates he is not active with outpatient treatment at this time and presents again for inpatient treatment reporting suicidal ideation with no plan. Patient reports worsening of the following symptoms over the past 2 weeks: Anxiety, helplessness , hopelessness, sleep disturbance, increase in depression, suicidal thinking, and adds he lost his apartment and is now homeless. Patient also endorses racing thoughts and "flashbacks memories about stuff from the past but not bad stuff," and mild mood lability. Patient denies suicidal and homicidal ideation, denies audiovisual hallucinations, and denies urge to engage in self-injurious behavior, denies history of suicide attempt. Patient reports experiencing "flashback memories of my past and stuff," indicates sensory experience is not disturbing and denies that "memories" are associated with traumatic experience. Patient indicates he had been taking psychotropic medications up until approximately 3 months ago, states he did not find medications effective and reports notable side effects. 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 Patient denies discomfort in social settings but reports history of panic symptoms denies compulsive behavior denies a history of aggression and denies access to weapons. Patient endorses racing thoughts, mild increase to energy level, reduced concentration reduced appetite with 25 pound weight loss over past month, reports latency and maintenance sleep related challenges, and indicates he "sometimes a little" experiences dissociative symptoms. Of Note: Patient indicated at intake that during his hospital stay he would like to only take 1 medication, as opposed to the combination of medications he' s been taking adding, "I think something like Klonopin and Xanax worked the best but I know they won't give them to me." PAST PSYCHIATRIC HISTORY: Patient states up until about 3 months ago he was taking Atarax, Depakote 500 mg twice a day, Risperdal 0.5 mg twice a day, and Effexor XR day. Patient indicates he experienced side effects of sedation and and gynecomastia while taking Depakote and Risperdal, feels Effexor was ineffective, indicates Atarax was helpful for controlling symptoms of anxiety. Patient has a history of multiple inpatient hospitalizations and outpatient psychotherapy and medication management, states was last seen at [facility] outpatient approximately 4 months ago. Patient indicates he has a history of diagnoses anxiety and depression, reports history of health injurious behavior and substance abuse. MEDICAL HISTORY: Patient has a history of thyroid problems for which she takes levothyroxine, denies history of seizure and TBI, reports history of hypertension, right foot ORIF. Medical H&P is not available at time of this assessment. Laboratory data on admission: Chloride elevated, TSH elevated, AST low. PA has evaluated increased blood pressure and intermittent tachycardia, patient is asymptomatic and to follow-up with PCM post discharge. EKG from 02/19/16 Normal sinus rhythm. Nonspecific T wave abnormality. No significant change when compared to prior tracing of 01/09/2015. Follow-up EKG from 07/29/16 SINUS RHYTHM SIMILAR 02/19/16. FAMILY PSYCHIATRIC HISTORY: Maternal uncle schizophrenia Maternal uncle bipolar depression Uncle committed suicide SOCIAL HISTORY: Patient indicates he was born and raised in [place] by parents who are and indicates he has limited contact with parents are now have "new families." Patient reports history of emotional abuse growing up, denies history of other forms of abuse, other traumatic events, and denies witnessing domestic violence in the home while growing up. Patient is , has 2 children with whom he has contact, indicates relationship with soon to be ex- is positive. Patient denies having adequate support system, denies history of legal problems, indicates he has completed 1 semester of college and has a high school diploma, adds he has not worked for the past year. Patient states he had been living in a trailer in the [facility] but due to the cold weather is no longer able to live there, has since been "bouncing around between friends." Patient states he has rn case manager, Breonna Funk, through [facility]. SUBSTANCE ABUSE HISTORY: Patient indicates he has a history of heroin IV use and has been clean for 12 months, notes he last used marijuana 2 days ago, last consumed alcohol, 3 drinks, also 2 days ago. Patient notes prior to 2 days ago he had not used alcohol 3 months. Patient also reports history of opioid abuse which he buys on the street, noting last use was "several weeks" ago. Patient completed [facility] in 2016, UDS was negative on admission, EtOH was 0.003 on admission. Patient denies all symptoms of withdrawal. LEGAL HISTORY: Patient denies TREATMENT AND PROGRESS ON THE UNIT: Patient is being discharged today after discharge was postponed yesterday due to lack of transportation. Patient is requesting discharge to temporary housing in [place] with follow-up outpatient services. Patient indicates he is able to stay with friends, but has indicated he does not want to stay with friends, and is therefore discharging to temporary housing while waiting for TLS. Patient has vacillated between housing and services in the [facility], and [facility], and has now clearly indicated that he wants to discharge to the [place] area. Patient states his current medication regimen is effective and he denies medication side effects. Patient verbalizes mood improvement related to Zoloft and currently denies anxiety and depression, denies suicidal and homicidal ideation, denies audiovisual hallucinations, and denies urge to engage in self-injurious behavior , further denies experiencing "flashback" type symptoms. Patient has been using hydroxyzine PRN to address symptoms of intermittent anxiety, is requesting small quantity discharge prescription for hydroxyzine. Patient feels he continues to adjust her thyroid medication restart Patient states he has been sleeping well and denies nightmares symptoms. Patient has adjusted well to unit , attended most groups. Patient has been calm and cooperative, has exhibited no behavioral management challenges and has shown improvement in ADLs. Patient states he feels he has developed coping mechanisms, has strengthened his relationship with some family members, and reports improvement to mood and anxiety. 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 Patient has been strongly encouraged to participate in substance abuse treatment, continues to agree to participate in outpatient follow-up psychotherapy and medication management services, and is awaiting TLS. MENTAL STATUS EXAMINATION ON DISCHARGE: Appearance: 25-year-old , father of two children who appears stated age , exhibits adequate personal hygiene today, makes good eye contact. Behavior: Calm, cooperative, no psychomotor agitation Attitude: Pleasant and cooperative t Speech: Normal rate, rhythm, volume Thought Content: Denies suicidal/homicidal ideation. Denies auditory/visual hallucination. Does not appear to be responding to internal stimuli. Does not appear internally preoccupied. Thought Process: Logical, linear, goal-oriented. Mood: "Good," denies depression and mood lability Affect: Constricted, congruent with mood Cognition: Appears intact Fund of knowledge: Adequate Orientation: Oriented to person, place, time Insight and Judgement: Limited but adequate and has made some improvement CONDITION ON DISCHARGE: Stable, no suicidal or homicidal ideation DIAGNOSES ON DISCHARGE: Major depressive disorder, recurrent, moderate, polysubstance use disorder, rule out OCD, rule out bipolar disorder, rule out substance-induced mood disorder MEDICATIONS ON DISCHARGE: See below FOLLOWUP ARRANGEMENTS: At patient request, transportation has been arranged to temporary housing in [place], prescriptions for medications have been E scripted to pharmacy adjacent to temporary housing, arrangements have been made for patient to receive outpatient psychotherapy and medication management services, and patient remains on list for TLS housing. Patient has agreed to consider participating in outpatient substance abuse treatment. Patient to follow up with PCM upon discharge, to where he will need follow-up TSH lab for ongoing monitoring purposes TIME SPENT: 25 minutes. Vital Signs Vital Sign - Last 24 Hours 08/03/16 06:31 Temp 96.6 Pulse 79 Resp 20 B/P 139/84 Medications Scheduled Ketoconazole (Ketoconazole) 2 % Cre 1 DOSE TOP BID RASH Levothyroxine Sodium (Synthroid) 75 Mcg Tab 0.075 MG PO DAILY@06 hypothyroid Nicotine (Nicotine Transdermal Syst) 21 Mg/24 Hr Dis 1 PATCH TD DAILY SMOKING CESSATION Quetiapine Fumerate (Quetiapine Fumarate) 100 Mg Tab 150 MG PO QHS MOOD Quetiapine Fumerate (Quetiapine Fumarate) 100 Mg Tab 100 MG PO QAM MOOD Sertraline Hcl (Sertraline HCl) 50 Mg Tab 50 MG PO QAM depression Scheduled PRN Hydroxyzine HCl (Hydroxyzine HCl) 50 Mg Tab 50 MG PO Q4HP PRN PRN ANXIETY/ AGITATION Allergies Coded Allergies: Diphenhydramine (Verified Allergy, Unknown, 02/18/16) Unknown reaction, told to ED per report Latex (Unverified Allergy, Unknown, 01/10/15) Khloe Corley Aug 04, 2016 00:55
== END 2016-08-03 14:36 | disposition home or self-care (01) | DRG 751 ==
LOC: M ED 08:46 → M PSY 12:25
PROVIDERS: ADMIT Psychiatry & Neurology Psychiatry; ATTEND Psychiatry & Neurology Psychiatry
DX: F33.1 Major depressive disorder, recurrent, moderate (principal); F19.94 Other psychoactive substance use, unspecified with psychoactive substance-induced mood disorder; M54.2 Cervicalgia; F17.210 Nicotine dependence, cigarettes, uncomplicated; E03.9 Hypothyroidism, unspecified; M54.5 Low back pain; H66.91 Otitis media, unspecified, right ear

== ENCOUNTER 2016-10-11 11:42 | Emergency (ER) | payer OTHER, SELFPAY ==
[~2016-10-11] VITALS: Ht 170.2 cm; Wt 108.9 kg
[~2016-10-11 11:42] MED LIST changes: +AMOX875T2 PO; +HYDR-3713 PO; -HYDR1TAB97 PO; +HYDRO50TAB PO; +KETO2CR TOP; +LEVO75TA4 PO; -NALT50TA2 PO; +NALT50TA4 PO; +NICO21PAT TD; +PATIENT COMMENT; +QUET1TAB8 PO; +QUET5TAB PO; +SERT50TA PO
[2016-10-11] MEDS ORDERED: IBUP600T26 PO (14:38)
[2016-10-11] MEDS ORDERED: CYCL10TA PO (14:38)
--- NOTE | 2016-10-11 14:49 | REP ---
CT LUMBAR SPINE WITHOUT CONTRAST: HISTORY: Trauma. There is no disc bulge or herniation at the L1-2 and L2-3 levels. The nerves exit the neural foramina without compression. A diffuse disc bulge is present at the L3-4 level. There is minimal compression of the thecal sac. The L3 nerves exit the neural foramina without compression. A diffuse disc bulge is present at the L4-5 level. There is minimal compression of the thecal sac. The L4 nerves exit the neural foramina without compression. A diffuse disc bulge is present is present at the L5-S1 level. There is minimal compression of the thecal sac. There is 3 mm of retrolisthesis of L5 on S1. The L5 nerves exits the neural foramina without compression. The intervertebral discs and vertebral bodies are normal in height. There is no fracture or subluxation. IMPRESSION: Diffuse disc bulges at the L3-4 through L5-S1 levels with minimal thecal sac compression. Signed by Lucius Bowers MD 10/11/2016 02:52 P
[2016-10-11 14:59] VITALS: BP 153/84
== END 2016-10-11 15:01 | disposition home or self-care (01) ==
LOC: M ED 14:59
DX: S20.229A Contusion of unspecified back wall of thorax, initial encounter (principal); X58.XXXA Exposure to other specified factors, initial encounter; Y92.099 Unspecified place in other non-institutional residence as the place of occurrence of the external cause; Y93.89 Activity, other specified; Y99.9 Unspecified external cause status

== ENCOUNTER 2018-07-08 01:01 | Emergency (ER) | payer OTHER, MEDICAID, SELFPAY ==
[2018-07-08] MEDS: IBUPROFEN 800 MG TAB PO (02:27)
== END 2018-07-08 02:32 | disposition home or self-care (01) ==
LOC: M ED 01:01
DX: M79.671 Pain in right foot (principal); F17.210 Nicotine dependence, cigarettes, uncomplicated; Z87.81 Personal history of (healed) traumatic fracture; Z91.040 Latex allergy status; Z88.8 Allergy status to other drugs, medicaments and biological substances; Z79.890 Hormone replacement therapy; Z79.899 Other long term (current) drug therapy
CPT/HCPCS: 73630

== ENCOUNTER 2019-07-28 12:55 | Inpatient (IN) | payer OTHER ==
[~2019-07-28] VITALS: Ht 175.3 cm; Wt 131.0 kg
[~2019-07-28 12:55] MED LIST changes: +ABIL1INJ2 IM; +ABIL1TAB13 PO; -ABIL2TAB2 PO; -BUPR300T34 PO; +BUPR300T92 PO; +CYCL10TA PO; +EFFE75CA2 PO; -EFFE75CA75 PO; -HYDR-4274 PO; +HYDR1TAB33 PO; +HYDR50TA70 PO; -HYDRO50TAB PO; +IBUP-1022 PO; +MELO15TA28 PO; -MELO15TA4 PO; -RISP0.5T16 PO; +RISP0.5T21 PO; -RISP2TAB30 PO; +RISP2TAB32 PO; +SERT-141 PO; -SERT50TA PO; +TRAZ-257 PO; -TRAZ100T4 PO; +TRAZ1TAB10 PO; -TRAZO50TA PO; -VENL75CA PO; +VENL75CA2 PO; -VICO5TAB16 PO; +VICO5TAB17 PO
[2019-07-28] MEDS ORDERED: LITH300T2 PO (13:01)
[2019-07-28] MEDS ORDERED: FLUO20CA19 PO (13:01)
[2019-07-28] MEDS ORDERED: HYDR-3363 PO (13:01)
[2019-07-28 14:14] LABS: HEMATOCRIT 47.8 % (42.0-52.0); HEMOGLOBIN 15.8 g/dl (13.5-17.5); MEAN CORPUSCULAR HEMOGLOBIN 28.9 pg (27.0-33.0); MEAN CORPUSCULAR HGB CONC 33.1 g/dl (32.0-36.5); MEAN CORPUSCULAR VOLUME 87.5 fl (80.0-96.0); PLATELET COUNT, AUTOMATED 300 10^3/uL (150-450); RED BLOOD COUNT 5.46 10^6/uL (4.30-6.10); WHITE BLOOD COUNT 8.8 10^3/uL (4.0-10.0)
[2019-07-28] MEDS ORDERED: hydrOXYzine 25 MG TAB PO ONE (14:15)
[2019-07-28 15:00] LABS: ACETAMINOPHEN LEVEL < 2.0 UG/ML (10.0-30.0); ALBUMIN 4.2 GM/DL (3.2-5.2); ALT/SGPT 27 U/L (12-78); BILIRUBIN,DIRECT 0.2 MG/DL (0.0-0.2); BILIRUBIN,TOTAL 0.9 MG/DL (0.2-1.0); BLOOD UREA NITROGEN 15 MG/DL (7-18); CALCIUM LEVEL 8.8 MG/DL (8.5-10.1); CARBON DIOXIDE LEVEL 26 MEQ/L (21-32); CHLORIDE LEVEL 103 MEQ/L (98-107); CREATININE FOR GFR 0.98 MG/DL (0.70-1.30); ETHYL ALCOHOL (ETHANOL) < 0.003 % (0.000-0.010); GLOMERULAR FILTRATION RATE > 60.0 (>60); GLUCOSE, FASTING 81 MG/DL (70-100); LITHIUM LEVEL < 0.20 MEQ/L (0.60-1.20); POTASSIUM SERUM 4.1 MEQ/L (3.5-5.1); SODIUM LEVEL 139 MEQ/L (136-145); TOTAL PROTEIN 8.2 GM/DL (6.4-8.2)
[2019-07-28 17:13] LABS: AMPHETAMINES LEVEL URINE NEGATIVE (NEGATIVE); BARBITURATES URINE NEGATIVE (NEGATIVE); BENZODIAZEPINES URINE NEGATIVE (NEGATIVE); CANNABINOIDS URINE POSITIVE (NEGATIVE); COCAINE METABOLITE URINE NEGATIVE (NEGATIVE); METHADONE URINE NEGATIVE (NEGATIVE); OPIATES URINE NEGATIVE (NEGATIVE); PHENCYCLIDINE URINE NEGATIVE (NEGATIVE)
[2019-07-28] MEDS ORDERED: LITHIUM CARBONATE 300 MG CAP PO ONE (22:00)
[2019-07-29] MEDS ORDERED: FLUoxetine 20 MG CAP PO ONE (09:00)
[2019-07-29] MEDS ORDERED: MAALOX 30 ML SUSP *UDC PO PRN (17:45)
[2019-07-29] MEDS ORDERED: ACETAMINOPHEN TAB 650MG DOSE (2X325MG) PO PRN (17:45)
[2019-07-29] MEDS ORDERED: MOM 30ML SUSPENSION UDC PO PRN (17:45)
[2019-07-29] MEDS ORDERED: hydrOXYzine 25 MG TAB PO PRN (17:45)
[2019-07-29] MEDS ORDERED: LITHIUM CARBONATE 300 MG CAP PO SCH (21:00)
[2019-07-29 23:00] VITALS: BP 146/80
[2019-07-30] MEDS: traZODone 50 MG TAB PO PRN ×2 (01:57→20:50)
[2019-07-30 06:36] VITALS: BP 115/66
[2019-07-30] MEDS: NICOTINE POLACRILEX 2 MG GUM PO PRN ×2 (07:24→11:25)
[2019-07-30] MEDS ORDERED: FLUoxetine 20 MG CAP PO SCH (09:00)
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
[2019-07-30] MEDS ORDERED: FLUoxetine 20 MG CAP PO ONE (11:15)
--- NOTE | 2019-07-30 15:35 | CR.PDOC ---
General Date of Consultation: Jul 30, 2019 Referring Provider: A Consultation REASON FOR CONSULTATION/CHIEF COMPLAINT: Physical evaluation HISTORY OF PRESENT ILLNESS: Patient is 29 years old male with past medical history of anxiety, depression presented hospital with major depressive episode. Patient fever, chills, nausea, vomiting, diarrhea or dysuria, chest pain, palpitations. During hospital stay patient was found to have elevated TSH level of 11 ALLERGIES: Please see below. HOME MEDICATIONS: Please see below. PAST MEDICAL HISTORY: Anxiety, depression, bipolar disorder PAST SURGICAL HISTORY: None FAMILY HISTORY: Father: Heart attack, stroke Mother: Stroke SOCIAL HISTORY: Tobacco use: One pack a day ETOH: Socially Illicit drug use: Marijuana REVIEW OF SYSTEMS: 10 point review system negative except just above PHYSICAL EXAMINATION: VITAL SIGNS: Please see below. GENERAL APPEARANCE: Well-nourished, well-developed, not in apparent distress HEENT: Normocephalic, atraumatic. Mucous members moist and pink CARDIOVASCULAR: Regular rate and rhythm. No murmurs, rubs or gallops. Radial pulses are intact. There is no lower extremity edema LUNGS: Diminished lung sounds ABDOMEN: Abdomen is soft and nontender. MUSCULOSKELETAL: Range of motion is intact in all 4 extremities NEUROLOGICAL: Cranial nerves II-12 are grossly intact. Speech is not dysarthric LABORATORY DATA: Please see below. ASSESSMENT/PLAN: Patient is 29 years old male with past medical history of anxiety, depression presented hospital with major depressive episode Hypothyroidism I will check thyroid antimicrosomal antibody, antiglobulin thyroid antibody There is concern that patient developed hypothyroidism secondary to lithium. If autoimmune study negative lithium should be changed for different class medication Continue to monitor thyroid profile Will start levothyroxine by mouth Vital Signs/I&O Vital Signs Date Time Temp Pulse Resp B/P (MAP) Pulse Ox O2 Delivery O2 Flow Rate FiO2 07/30/19 06:36 97.6 69 12 115/66 (82) Room Air 07/29/19 23:00 95 Allergies Coded Allergies: diphenhydramine (Verified Allergy, Unknown, 07/28/19) Home Medications Scheduled Fluoxetine Hcl (Fluoxetine HCl) 20 Mg Capsule, 20 MG PO DAILY, (Reported) [place] Carbonate ([place] Carbonate) 300 Mg Tablet, 300 MG PO QHS, (Reported) Scheduled PRN Hydroxyzine HCl (Hydroxyzine HCl) 25 Mg Tablet, 25 MG PO TID PRN for ANXIETY/AGITATION, (Reported) DROZLULAHIN,TIANA DO Jul 30, 2019 15:35
[2019-07-30 16:27] VITALS: BP 130/80
[2019-07-30 17:09] LABS: CHOLESTEROL RISK RATIO 7.103 (<5); FREE THYROXINE INDEX 1.7 % (1.4-3.8); THYROID STIMULATING HORMONE 17.4 uIU/ML (0.358-3.740); THYROXINE (T4) 5.2 UG/DL (4.5-12.0)
[2019-07-30] MEDS: LITHIUM CARBONATE 600 MG CAP PO SCH (20:50)
[2019-07-31] MEDS: LEVOTHYROXINE 50MCG TABLET (0.05MG) PO SCH (05:57)
[2019-07-31 06:42] VITALS: BP 147/93
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
[2019-07-31] MEDS: FLUoxetine 20 MG CAP PO SCH (08:46)
[2019-07-31 09:26] LABS: THYROID PEROXIDASE ANTIBODY 31.3 U/ML (<60.0)
[2019-07-31] MEDS: hydrOXYzine 50 MG TAB PO PRN (14:42)
[2019-07-31] MEDS: NICOTINE POLACRILEX 2 MG GUM PO PRN (14:42)
--- NOTE | 2019-07-31 16:13 | IPNPDOC ---
Text Note Date of Service The patient was seen on 07/31/19. NOTE I follow pt with new thyroid results. Most likely patient developed subclinical hypothyroidism the patient has a high TSH and normal T4 and T3 concentrations. When hypothyroidism develops, it should be treated with T4 according to the usual therapeutic guidelines. Up-to-date recommended: Although lithium-induced hypothyroidism is reversible with discontinuation of lithium, there is no need to discontinue it, and it should not be discontinued without consultation with the patient's psychiatrist. If lithium is subsequently discontinued, it is reasonable to reassess the need for continued thyroid hormone replacement. There are no standard protocols for reassessment. Also, it is likely that many patients who develop hypothyroidism during lithium treatment have underlying chronic autoimmune thyroiditis. They have a greater prevalence of antithyroid antibodies before lithium is begun than those lithium- treated patients who remain euthyroid. However, whether lithium itself can induce thyroid autoimmunity is unknown. In conclusion: The lithium therapy can be changed for other class of medications or lithium therapy can be continued with levothyroxine treatment. Continue to monitor thyroid function VS,Jackeline, I+O VS, Jackeline, I+O Vital Signs Date Time Temp Pulse Resp B/P (MAP) Pulse Ox O2 Delivery O2 Flow Rate FiO2 07/31/19 06:42 97.8 72 16 147/93 (111) 07/30/19 06:36 Room Air 07/29/19 23:00 95 TIANA ARAUZ DO Jul 31, 2019 16:13
[2019-07-31 16:21] VITALS: BP 140/92
[2019-07-31] MEDS: LITHIUM CARBONATE 600 MG CAP PO SCH (20:04)
[2019-08-01] MEDS: LEVOTHYROXINE 50MCG TABLET (0.05MG) PO SCH (05:47)
[2019-08-01 05:51] VITALS: BP 148/90
[2019-08-01] MEDS: FLUoxetine 20 MG CAP PO SCH (08:43)
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
[2019-08-01 15:45] VITALS: BP 140/48
[2019-08-01] MEDS: traZODone 50 MG TAB PO PRN (20:22)
[2019-08-01] MEDS: LITHIUM CARBONATE 600 MG CAP PO SCH (20:22)
[2019-08-02] MEDS: LEVOTHYROXINE 50MCG TABLET (0.05MG) PO SCH (06:52)
[2019-08-02 06:58] VITALS: BP 117/66
[2019-08-02 07:57] VITALS: BP 117/66
[2019-08-02] MEDS: FLUoxetine 20 MG CAP PO SCH (08:03)
--- NOTE | 2019-08-02 10:04 | MHIPNPDOC ---
[facility] Progress Note Progress Note DATE OF SERVICE: 08/02/19 HISTORY: Patient is a 29 -year-old , male, who was brought to the ED for being noncompliant with his meds and increasing feelings of depression and a nxiety. The pt stated he has not been taking his meds because he is stressed out. Main trigger is that his children live with their grandparents and he is not allowed to see them. Pt states that he "loses time" frequently. He states that he will sit and stare off into space for hours. He also states that his house is "trashed" because he has no motivation to do anything. When TW asked if he was suicidal he stated "not really." Pt denied HI. He denied any hx of suicide attempts or self harm. Pt denies both Ah and VH. He stated that he cannot return to his apartment in [place] because he is going to "catch a bullet." He stated that people in [place] do not like him because of his tattoos and they want to kill him. Pt complained of depressed mood, anxiety, poor concentration, poor appetite, and poor sleep. Pt has had multiple admissions in the past to [facility] the last one in Jun 2016. He has a dx of MDD and Bipolar d/o. Pt follows OP tx at [facility] and is supposed to be taking [place] and Pr ozac. Pt states that he uses alcohol once a month and marijuana occasionally- tox screen was positive for cannabis. TW spoke to pt's mother over the phone (Monique [phone]). She stated that pt has not been doing well for the past month. He forgets to take his meds because he does not know what time or day it is. She states that pt used to be on a shot but then they put him on only oral meds and that is when he began to decline. She stated that pt has been making threats to kill himself and has been agitated as well. he has been paranoid and told her that he has been drawing his own blood. She went to his apartment recently and there was garbage everywhere and flies all around. Pt burned his curtain because he lit a candle and forgot about it.. VITAL SIGNS: See below. NEW TEST RESULTS: See below. CURRENT MEDICATIONS: See below. MENTAL STATUS EXAMINATION: Patient is a 29-year old male, who is unkempt and in hospital scrubs. Speech: Is clear, normal volume, regular rate and rhythm. Language skills are intact. Thought processes including: logical and linear. Thought content: Denies SI, HI, AVH, and delusions. Abstract reasoning, and computation: intact. Description of associations: denies. Description of abnormal or psychotic thoughts: denies. Judgment: improving Insight: improving Orientation: AAOx3. Recent and remote memory: intact. Attention span and concentration: intact. Language: intact. Fund of knowledge: intact. Mood: "alright". Affect: less depressed, more energetic, improved range DIAGNOSES: 1. bipolar disorder mre depressed w/o psychosis 2. anxiety d/o unspecified 3. binge eating d/o ASSESSMENT: Pt seen and states he is "alright" today and appears more euthymic and full range in affect. He states his energy and motivation continues to improve and he's less depressed. States he really likes his meds, is finding them beneficial, and is tolerating them well. States he had slept well last night. States he spoke with his mother on the phone and now feels he's capable to stay in his current apt in [facility] with the support of his mother as she is close by as "my situtation isn't as bad as it felt when I was really depressed". Per medical doc, thyroglobulin increased and concerned it's due to increase in lithium as TSH 17, pt hypothyroid. Will continue to monitor as synthroid started by med doc to see if TSH and Thyroglobulin improve over time. Will continue as pt finds it beneficial. Should TSH worsen will consider d/c of lithium and start of Latuda for bipolar depression. States he's attending groups, likes them, and is finding them beneficial. He denies insomnia, SI/HI, hallucinations, and delusions. Pt feels safe here. MANAGEMENT PLAN: Medications: Prozac 40 mg daily [place] 600 mg qhs atarax 50mg q6hr prn anxiety. TIME SPENT: 30 minutes. Vital Signs Vital Signs Date Time Temp Pulse Resp B/P (MAP) Pulse Ox O2 Delivery O2 Flow Rate FiO2 08/02/19 07:57 98.9 65 14 117/66 (83) 07/30/19 06:36 Room Air 07/29/19 23:00 95 Current Medications Current Medications Medications (Trade) Dose Ordered Sig/Nadege Route PRN Reason Start Time Stop Time Status Last Admin Dose Admin Acetaminophen (Tylenol Tab) 650 mg Q6HP PRN PO HEADACHE or DISCOMFORT 07/29/19 17:45 Al Hydrox/Mg Hydrox/Simethicone (Mylanta) 30 ml Q4HP PRN PO HEARTBURN/INDIGESTION 07/29/19 17:45 Fluoxetine HCl (PROzac) 20 mg DAILY PO 07/30/19 09:00 07/30/19 11:10 DC 07/30/19 08:29 Fluoxetine HCl (PROzac) 40 mg DAILY PO 07/31/19 09:00 08/02/19 08:03 Home Med (Med Rec Complete!) ASDIRECTED XX 07/29/19 02:15 07/29/19 02:12 DC Hydroxyzine HCl (Atarax) 25 mg TID PRN PO ANXIETY/AGITATION 07/29/19 17:45 07/30/19 11:10 DC 07/30/19 08:29 Hydroxyzine HCl (Atarax) 50 mg Q6HP PRN PO ANXIETY 07/30/19 15:00 07/31/19 14:42 Levothyroxine Sodium (Synthroid) 50 mcg DAILY@06 PO 07/31/19 06:00 08/02/19 06:52 [place] Carbonate ([place] Carbonate) 300 mg QHS PO 07/29/19 21:00 07/30/19 11:10 DC 07/29/19 21:00 [place] Carbonate ([place] Carbonate) 600 mg QHS PO 07/30/19 21:00 08/01/19 20:22 Magnesium Hydroxide (Milk Of Magnesia) 30 ml DAILYPRN PRN PO CONSTIPATION 07/29/19 17:45 Nicotine (Nicorette) 4 mg Q2HP PRN PO NICOTINE WITHDRAWAL 07/30/19 07:30 07/31/19 14:42 Trazodone HCl (Desyrel) 50 mg QHSP PRN PO INSOMNIA 07/29/19 17:45 08/01/19 20:22 Allergies Coded Allergies: diphenhydramine (Verified Allergy, Unknown, 07/28/19) SABRA AVILES DO Aug 02, 2019 9:19 am
[2019-08-02 15:50] VITALS: BP 111/68
--- NOTE | 2019-08-02 17:40 | ECGEPIP ---
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
[2019-08-02] MEDS: LITHIUM CARBONATE 600 MG CAP PO SCH (21:30)
[2019-08-03] MEDS: LEVOTHYROXINE 50MCG TABLET (0.05MG) PO SCH (06:05)
[2019-08-03 06:32] VITALS: BP 150/90
[2019-08-03] MEDS: FLUoxetine 20 MG CAP PO SCH (08:28)
[2019-08-03] MEDS: hydrOXYzine 50 MG TAB PO PRN (08:28)
[2019-08-03] MEDS ORDERED: traZODone 25MG PER 1/2 TABLET PO PRN (11:30)
[2019-08-03 16:41] VITALS: BP 132/74
[2019-08-03] MEDS: LITHIUM CARBONATE 600 MG CAP PO SCH (21:13)
[2019-08-04] MEDS: LEVOTHYROXINE 50MCG TABLET (0.05MG) PO SCH (05:19)
[2019-08-04 06:40] VITALS: BP 143/90
[2019-08-04] MEDS: FLUoxetine 20 MG CAP PO SCH (08:10)
[2019-08-04 16:17] VITALS: BP 135/74
[2019-08-04] MEDS: LITHIUM CARBONATE 600 MG CAP PO SCH (20:20)
[2019-08-05] MEDS: LEVOTHYROXINE 50MCG TABLET (0.05MG) PO SCH (05:52)
[2019-08-05 06:42] VITALS: BP 140/87
[2019-08-05] MEDS: FLUoxetine 20 MG CAP PO SCH (09:44)
--- NOTE | 2019-08-05 10:10 | MHIPNPDOC ---
[facility] Progress Note Progress Note DATE OF SERVICE: 08/05/19 HISTORY: Patient is a 29 -year-old , male, who was brought to the ED for being noncompliant with his meds and increasing feelings of depression and a nxiety. The pt stated he has not been taking his meds because he is stressed out. Main trigger is that his children live with their grandparents and he is not allowed to see them. Pt states that he "loses time" frequently. He states that he will sit and stare off into space for hours. He also states that his house is "trashed" because he has no motivation to do anything. When TW asked if he was suicidal he stated "not really." Pt denied HI. He denied any hx of suicide attempts or self harm. Pt denies both Ah and VH. He stated that he cannot return to his apartment in [place] because he is going to "catch a bullet." He stated that people in [place] do not like him because of his tattoos and they want to kill him. Pt complained of depressed mood, anxiety, poor concentration, poor appetite, and poor sleep. Pt has had multiple admissions in the past to [facility] the last one in Jun 2016. He has a dx of MDD and Bipolar d/o. Pt follows OP tx at [facility] and is supposed to be taking [place] and Pr ozac. Pt states that he uses alcohol once a month and marijuana occasionally- tox screen was positive for cannabis. TW spoke to pt's mother over the phone (Monique [phone]). She stated that pt has not been doing well for the past month. He forgets to take his meds because he does not know what time or day it is. She states that pt used to be on a shot but then they put him on only oral meds and that is when he began to decline. She stated that pt has been making threats to kill himself and has been agitated as well. he has been paranoid and told her that he has been drawing his own blood. She went to his apartment recently and there was garbage everywhere and flies all around. Pt burned his curtain because he lit a candle and forgot about it.. VITAL SIGNS: See below. NEW TEST RESULTS: See below. CURRENT MEDICATIONS: See below. MENTAL STATUS EXAMINATION: Patient is a 29-year old male, who is unkempt and in hospital scrubs. Speech: Is clear, normal volume, regular rate and rhythm. Language skills are intact. Thought processes including: logical and linear. Thought content: Denies SI, HI, AVH, and delusions. Abstract reasoning, and computation: intact. Description of associations: denies. Description of abnormal or psychotic thoughts: denies. Judgment: improving Insight: improving Orientation: AAOx3. Recent and remote memory: intact. Attention span and concentration: intact. Language: intact. Fund of knowledge: intact. Mood: "ok". Affect: less depressed, more energetic, improved range DIAGNOSES: 1. bipolar disorder mre depressed w/o psychosis 2. anxiety d/o unspecified 3. binge eating d/o ASSESSMENT: Pt seen and states he is "ok" today and appears more euthymic and full range in affect. He states his energy and motivation are good today. States he really likes his meds, is finding them beneficial, and is tolerating them well. States he had slept well last night. States he would like to discuss with d/c discharge planner plans of staying in [place] after d/c as states when he returns to [facility] he wants to have a "fresh start". Advised will check thyroid profile prior d/c to make sure it is improved and pt safe for d/c. He appears to have improved thyroid function. States he's attending groups, likes them, and is finding them beneficial. He denies insomnia, SI/HI, hallucinations, and delusions. Pt feels safe here. MANAGEMENT PLAN: d/c planning tomorrow. Check thyroid profile and lithium level Medications: Prozac 40 mg daily [place] 600 mg qhs atarax 50mg q6hr prn anxiety. TIME SPENT: 30 minutes. Vital Signs Vital Signs Date Time Temp Pulse Resp B/P (MAP) Pulse Ox O2 Delivery O2 Flow Rate FiO2 08/05/19 06:42 98.4 76 14 140/87 (104) Room Air Current Medications Current Medications Medications (Trade) Dose Ordered Sig/Nadege Route PRN Reason Start Time Stop Time Status Last Admin Dose Admin Acetaminophen (Tylenol Tab) 650 mg Q6HP PRN PO HEADACHE or DISCOMFORT 07/29/19 17:45 Al Hydrox/Mg Hydrox/Simethicone (Mylanta) 30 ml Q4HP PRN PO HEARTBURN/INDIGESTION 07/29/19 17:45 Fluoxetine HCl (PROzac) 20 mg DAILY PO 07/30/19 09:00 07/30/19 11:10 DC 07/30/19 08:29 Fluoxetine HCl (PROzac) 40 mg DAILY PO 07/31/19 09:00 08/04/19 08:10 Home Med (Med Rec Complete!) ASDIRECTED XX 07/29/19 02:15 07/29/19 02:12 DC Hydroxyzine HCl (Atarax) 25 mg TID PRN PO ANXIETY/AGITATION 07/29/19 17:45 07/30/19 11:10 DC 07/30/19 08:29 Hydroxyzine HCl (Atarax) 50 mg Q6HP PRN PO ANXIETY 07/30/19 15:00 08/03/19 08:28 Levothyroxine Sodium (Synthroid) 50 mcg DAILY@06 PO 07/31/19 06:00 08/05/19 05:52 [place] Carbonate ([place] Carbonate) 300 mg QHS PO 07/29/19 21:00 07/30/19 11:10 DC 07/29/19 21:00 [place] Carbonate ([place] Carbonate) 600 mg QHS PO 07/30/19 21:00 08/04/19 20:20 Magnesium Hydroxide (Milk Of Magnesia) 30 ml DAILYPRN PRN PO CONSTIPATION 07/29/19 17:45 Nicotine (Nicorette) 4 mg Q2HP PRN PO NICOTINE WITHDRAWAL 07/30/19 07:30 07/31/19 14:42 Trazodone HCl (Desyrel) 50 mg QHSP PRN PO INSOMNIA 07/29/19 17:45 08/03/19 11:21 DC 08/01/19 20:22 Trazodone HCl (Desyrel) 75 mg QHSP PRN PO INSOMNIA 08/03/19 11:30 Allergies Coded Allergies: diphenhydramine (Verified Allergy, Unknown, 07/28/19) SABRA AVILES DO Aug 05, 2019 9:30 am
[2019-08-05 11:34] LABS: THYROID STIMULATING HORMONE 8.41 uIU/ML (0.358-3.740); THYROXINE (T4) 8.8 UG/DL (4.5-12.0)
[2019-08-05 17:00] VITALS: BP 137/78
[2019-08-05] MEDS: LITHIUM CARBONATE 600 MG CAP PO SCH (21:01)
[2019-08-06] MEDS: LEVOTHYROXINE 50MCG TABLET (0.05MG) PO SCH (06:09)
[2019-08-06 07:01] VITALS: BP 151/95
[2019-08-06 07:02] VITALS: BP 145/89
[2019-08-06] MEDS ORDERED: HYDR-3363 PO (08:35)
[2019-08-06] MEDS ORDERED: PROZ40CA PO (08:35)
[2019-08-06] MEDS ORDERED: LITH600C PO (08:35)
[2019-08-06] MEDS ORDERED: TRAZ-252 PO (08:36)
--- NOTE | 2019-08-06 08:37 | MHDSPDOC ---
[facility] Discharge Summary Discharge Summary DATE OF ADMISSION: Jul 29, 2019 at 5:41 pm DATE OF DISCHARGE: Aug 06, 2019 DISCHARGE DIAGNOSES: 1. bipolar disorder mre depressed w/o psychosis 2. anxiety d/o unspecified 3. binge eating d/o REASON FOR ADMISSION: Patient is a 29 -year-old , male, who was brought to the ED for being noncompliant with his meds and increasing feelings of depression and anxiety. The pt stated he has not been taking his meds because he is stressed out. Main trigger is that his children live with their grandparents and he is not allowed to see them. Pt states that he "loses time" frequently. He states that he will sit and stare off into space for hours. He also states that his house is "trashed" because he has no motivation to do anything. When TW asked if he was suicidal he stated "not really." Pt denied HI. He denied any hx of suicide attempts or self harm. Pt denies both Ah and VH. He stated that he cannot return to his apartment in [place] because he is going to "catch a bullet." He stated that people in [place] do not like him because of his tattoos and they want to kill him. Pt complained of depressed mood, anxiety, poor concentration, poor appetite, and poor sleep. Pt has had multiple admissions in the past to [facility] the last one in Jun 2016. He has a dx of MDD and Bipolar d/o. Pt follows OP tx at [facility] and is supposed to be taking [place] and Prozac. Pt states that he uses alcohol once a month and marijuana occasionally- tox screen was positive for cannabis. TW spoke to pt's mother over the phone (Monique [phone]). She stated that p rosetta has not been doing well for the past month. He forgets to take his meds because he does not know what time or day it is. She states that pt used to be on a shot but then they put him on only oral meds and that is when he began to decline. She stated that pt has been making threats to kill himself and has been agitated as well. he has been paranoid and told her that he has been drawing his own blood. She went to his apartment recently and there was garbage everywhere and flies all around. Pt burned his curtain because he lit a candle and forgot about it.. CONSULTANTS INVOLVED: medicine for hypothyroidism TEST RESULTS: THS 8.41 (greatly improving and pt appears to have improved thryroid function) [place] level 0.2 appropriate for med augmentation for depre ssion TREATMENT AND PROGRESS ON THE UNIT : Pt was admitted to [facility], seen for psychiatric assessment and restarted on his outpatient medication prozac increased to 40mg daily and lithium increased to 600mg qhs. He was provided atarax 50mg tid prn anxiety and trazodone 75mg qhs prn insomnia. Pt found his medications beneficial and tolerated them well. He attended groups daily during his stay. His symptoms improved with treatment. On day of discharge he denied depression, anxiety, insomnia, SI/HI, hallucinations, delusions. He was discharged home with follow-up at [facility]. He felt safe for discharge. DISCHARGE ASSESSMENT: Pt seen and states he is "good" today and he's looking forward to going home today as his mother's live close to him in [facility] and he wants to remain close to her as she's supportive of him. He appears euthymic and full range in affect. He states his energy and motivation are good today. States he really likes his meds, is finding them beneficial, and is tolerating them well. States he had slept well last night. States he's attending groups, likes them, and is finding them beneficial. He denies depression, anxiety, insomnia, SI/HI, hallucinations, and delusions. Pt feels safe to d/c home today. MENTAL STATUS EXAMINATION ON DISCHARGE: Patient is a 29-year old male, who is clean and in hospital scrubs. Speech: Is clear, normal volume, regular rate and rhythm. Language skills are intact. Thought processes including: logical and linear. Thought content: Denies SI, HI, AVH, and delusions. Abstract reasoning, and computation: intact. Description of associations: denies. Description of abnormal or psychotic thoughts: denies. Judgment: good Insight:good Orientation: AAOx3. Recent and remote memory: intact. Attention span and concentration: intact. Language: intact. Fund of knowledge: intact. Mood: "good". Affect: euthymic, energetic, full range MEDICATIONS ON DISCHARGE: Prozac 40 mg daily [place] 600 mg qhs atarax 50mg tid prn anxiety. trazodone 75mg qhs prn insomnia PLAN/FOLLOWUP ARRANGEMENTS: D/c home with follow-up at [facility]. The amount of time spent in the coordination of care for this patient was approximately 30 minutes. Vital Signs/I&Os Vital Signs Date Time Temp Pulse Resp B/P (MAP) Pulse Ox O2 Delivery O2 Flow Rate FiO2 08/06/19 07:02 98.0 70 16 145/89 (107) 08/05/19 06:42 Room Air Laboratory Data Labs 24H Laboratory Tests 2 08/05/19 10:37: Thyroid Stimulating Hormone (TSH) 8.410H, Free Thyroxine Index 3.0, Thyroxine (T4) 8.8, Triiodothyronine (T3) Uptake 34, [place] Level 0.20L Medications Scheduled Fluoxetine Hcl (Fluoxetine HCl) 20 Mg Capsule, 20 MG PO DAILY, (Reported) [place] Carbonate ([place] Carbonate) 300 Mg Tablet, 300 MG PO QHS, (Reported) Scheduled PRN Hydroxyzine HCl (Hydroxyzine HCl) 25 Mg Tablet, 25 MG PO TID PRN for ANXI ETY/AGITATION, (Reported) Allergies Coded Allergies: diphenhydramine (Verified Allergy, Unknown, 07/28/19) SABRA AVILES DO Aug 06, 2019 8:37 am
[2019-08-06] MEDS ORDERED: LEVO50TA5 PO (08:51)
[2019-08-06] MEDS: FLUoxetine 20 MG CAP PO SCH (09:20)
== END 2019-08-06 13:35 | disposition home or self-care (01) | DRG 753 ==
LOC: M ED 12:55 → M ED INP 07-29 17:41 → M PSY 07-29 22:34
PROVIDERS: ADMIT Psychiatry & Neurology Addiction Medicine; ATTEND Psychiatry & Neurology Psychiatry
DX: F31.30 Bipolar disorder, current episode depressed, mild or moderate severity, unspecified (principal); F41.9 Anxiety disorder, unspecified; F50.81 Binge eating disorder; Z91.14 Patient's other noncompliance with medication regimen; Z63.5 Disruption of family by separation and divorce; E03.9 Hypothyroidism, unspecified; G47.00 Insomnia, unspecified; F17.210 Nicotine dependence, cigarettes, uncomplicated; Z79.899 Other long term (current) drug therapy; Z88.8 Allergy status to other drugs, medicaments and biological substances

== ENCOUNTER → 2020-07-14 | Outpatient (CLI) | payer OTHER ==
[~2020-07-14] MED LIST changes: -CLAR500T PO; +CLAR500T97 PO; +CYCL-707 PO; -CYCL10TA PO; +FLUO20CA22 PO; +HYDR-3363 PO; +LEVO50TA5 PO; +LITH300T2 PO; +LITH600C PO; +PROZ40CA PO; +QUET100T2 PO; -QUET1TAB8 PO; +TRAZ-252 PO
== END ==
LOC: M WUC 13:53
PROVIDERS: ATTEND Surgery
DX: Z79.899 Other long term (current) drug therapy (principal)

== ENCOUNTER → 2021-01-01 | Outpatient (CLI) | payer MEDICAID ==
[~2021-01-01] MED LIST changes: +QUET50TA3 PO; -QUET5TAB PO
== END ==
LOC: M OUTALCOH 09:17
PROVIDERS: ATTEND Psychiatry & Neurology Psychiatry
DX: Z03.89 Encounter for observation for other suspected diseases and conditions ruled out (principal)

== ENCOUNTER 2021-03-03 22:16 | Emergency (ER) | payer OTHER ==
[~2021-03-03] VITALS: Ht 175.3 cm; Wt 153.4 kg
[~2021-03-03 22:16] MED LIST changes: -QUET50TA3 PO; +QUET50TA4 PO
[2021-03-03 22:18] VITALS: BP 135/86
[2021-03-03] MEDS ORDERED: ASPI-263 PO (22:23)
[2021-03-04] MEDS ORDERED: diphenhydrAMINE 50MG CAP PO ONE (00:50)
[2021-03-04] MEDS ORDERED: predniSONE 20 MG TAB PO ONE (00:50)
[2021-03-04] MEDS ORDERED: PRED20TA PO (01:13)
== END 2021-03-04 01:57 | disposition home or self-care (01) ==
LOC: M ED 22:16
DX: R22.33 Localized swelling, mass and lump, upper limb, bilateral (principal); L23.9 Allergic contact dermatitis, unspecified cause; E03.9 Hypothyroidism, unspecified; F25.9 Schizoaffective disorder, unspecified; F41.9 Anxiety disorder, unspecified; F33.9 Major depressive disorder, recurrent, unspecified; Z79.899 Other long term (current) drug therapy; Z79.890 Hormone replacement therapy; Z87.820 Personal history of traumatic brain injury; Z79.82 Long term (current) use of aspirin
CPT/HCPCS: 99283; J7512

== ENCOUNTER 2021-03-08 17:15 | Emergency (ER) | payer OTHER ==
[~2021-03-08] VITALS: Ht 175.3 cm; Wt 159.1 kg
[~2021-03-08 17:15] MED LIST changes: +ASPI-263 PO; +PRED20TA PO
[2021-03-08 21:01] LABS: BASO # 0.1 10^3/uL (0.0-0.2); BASO % 0.4 % (0.0-1.0); EOS # 0.1 10^3/uL (0.0-0.5); EOS % 1.1 % (0.0-3.0); HEMOGLOBIN 14.5 g/dl (13.5-17.5); LYMPH # 2.4 10^3/uL (1.5-5.0); MEAN CORPUSCULAR HEMOGLOBIN 29.5 pg (27.0-33.0); MEAN CORPUSCULAR VOLUME 89.6 fl (80.0-96.0); MONO # 0.6 10^3/uL (0.0-0.8); MONO % 5.1 % (2.0-8.0); NEUTROPHILS # 8.5 10^3/uL (1.5-8.5); NEUTROPHILS % 72.2 % (36.0-66.0); PLATELET COUNT, AUTOMATED 356 10^3/uL (150-450); RED BLOOD COUNT 4.91 10^6/uL (4.30-6.10); WHITE BLOOD COUNT 11.8 10^3/uL (4.0-10.0)
--- NOTE | 2021-03-08 21:17 | REPVR ---
PROCEDURE INFORMATION: Exam: XR Abdomen Exam date and time: 03/08/2021 8:33 PM Age: 30 years old Clinical indication: Abdominal pain; Acute TECHNIQUE: Imaging protocol: XR of the abdomen. Views: Frontal supine view of the abdomen. 1 View. COMPARISON: CT Spine, lumbar w/o contrast 10/11/2016 2:08 PM FINDINGS: Gastrointestinal tract: Normal. No bowel dilation. Bones/joints: Unremarkable. IMPRESSION: No acute findings. Electronically signed by: Jhon Christopher On 03/08/2021 21:17:12 PM
--- NOTE | 2021-03-08 21:19 | REPVR ---
PROCEDURE INFORMATION: Exam: XR Right Foot Exam date and time: 03/08/2021 8:33 PM Age: 30 years old Clinical indication: Pain; Foot; Bilateral; Additional info: Foot pain TECHNIQUE: Imaging protocol: XR Right foot. Views: 3 or more views. COMPARISON: CR Foot, complete 07/08/2018 2:01 AM FINDINGS: Bones/joints: Deformities along the diaphysis of the 2nd and 3rd metatarsals consistent with prior healed fractures. Prominent osteophyte at the distal hallux metatarsal. Soft tissues: Normal. IMPRESSION: Fracture deformities in osteophyte in the distal hallux metatarsal. No acute findings. PROCEDURE INFORMATION: Exam: XR Left Foot Exam date and time: 03/08/2021 8:33 PM Age: 30 years old Clinical indication: Pain; Foot; Bilateral; Additional info: Foot pain TECHNIQUE: Imaging protocol: XR Left foot. Views: 3 or more views. COMPARISON: CR Foot, complete 07/08/2018 2:01 AM FINDINGS: Bones/joints: Normal. Soft tissues: Normal. IMPRESSION: No acute findings. Electronically signed by: Jhon Christopher On 03/08/2021 21:19:25 PM
[2021-03-08 21:34] LABS: ALBUMIN 4.1 GM/DL (3.2-5.2); BILIRUBIN,DIRECT 0.1 MG/DL (0.0-0.2); BILIRUBIN,TOTAL 0.4 MG/DL (0.2-1.0); THYROID STIMULATING HORMONE 86.6 uIU/ML (0.358-3.740); TOTAL PROTEIN 7.9 GM/DL (6.4-8.2)
--- NOTE | 2021-03-08 21:49 | REPVR ---
PROCEDURE INFORMATION: Exam: US Duplex Lower Extremity Veins, Bilateral Exam date and time: 03/08/2021 9:44 PM Age: 30 years old Clinical indication: Pain; Foot; Bilateral; Additional info: Calf pain/ foot pain TECHNIQUE: Imaging protocol: Real-time duplex ultrasound of the extremities with 2-D levine scale, color Doppler flow and spectral waveform analysis with image documentation. Complete exam focused on the bilateral lower extremity veins. COMPARISON: CR Foot, complete BILATERAL 03/08/2021 8:04 PM FINDINGS: Right deep veins: Unremarkable. The common femoral, femoral, proximal profunda femoral and popliteal veins are patent without thrombus. Calf veins poorly visualized. Normal Doppler waveforms. Normal compressibility and/or augmentation response. Right superficial veins: Saphenofemoral junction is patent without thrombus. Left deep veins: Unremarkable. The common femoral, femoral, proximal profunda femoral and popliteal veins are patent without thrombus. Calf veins poorly visualized. Normal Doppler waveforms. Normal compressibility and/or augmentation response. Left superficial veins: Saphenofemoral junction is patent without thrombus. Soft tissues: Unremarkable. IMPRESSION: No evidence of deep vein thrombosis. Limited evaluation of the calf veins as described above. Electronically signed by: Jhon Christopher On 03/08/2021 21:49:05 PM
[2021-03-08] MEDS ORDERED: ACETAMINOPHEN 325 MG TAB PO ONE (23:15)
[2021-03-08 23:31] VITALS: BP 138/97
--- NOTE | 2021-03-14 10:46 | ED PDOC ---
Post-Departure Follow-Up Tried to call patient at [phone] to talk to him about an elevated TSH sever al times. Have not been able to reach him as phone just rings. Tried to call again today to see if he followed up at [facility] but no answer. JATIN DAVIS PA-C Mar 14, 2021 10:46
== END 2021-03-08 23:36 | disposition home or self-care (01) ==
LOC: M ED 17:15
DX: M79.671 Pain in right foot (principal); M79.672 Pain in left foot; M79.661 Pain in right lower leg; M79.662 Pain in left lower leg; K58.9 Irritable bowel syndrome, unspecified; F17.200 Nicotine dependence, unspecified, uncomplicated; Z79.899 Other long term (current) drug therapy

== ENCOUNTER 2021-03-16 03:29 | Inpatient (IN) | payer OTHER ==
[~2021-03-16] VITALS: Ht 175.3 cm; Wt 146.2 kg
[2021-03-16 06:07] LABS: HEMATOCRIT 38.6 % (42.0-52.0); HEMOGLOBIN 12.9 g/dl (13.5-17.5); MEAN CORPUSCULAR HEMOGLOBIN 29.2 pg (27.0-33.0); MEAN CORPUSCULAR HGB CONC 33.4 g/dl (32.0-36.5); MEAN CORPUSCULAR VOLUME 87.3 fl (80.0-96.0); PLATELET COUNT, AUTOMATED 370 10^3/uL (150-450); RED BLOOD COUNT 4.42 10^6/uL (4.30-6.10); WHITE BLOOD COUNT 10.1 10^3/uL (4.0-10.0)
[2021-03-16 06:30] LABS: AMPHETAMINES LEVEL URINE NEGATIVE (NEGATIVE); BARBITURATES URINE NEGATIVE (NEGATIVE); BENZODIAZEPINES URINE NEGATIVE (NEGATIVE); CANNABINOIDS URINE NEGATIVE (NEGATIVE); COCAINE METABOLITE URINE NEGATIVE (NEGATIVE); METHADONE URINE NEGATIVE (NEGATIVE); OPIATES URINE NEGATIVE (NEGATIVE); PHENCYCLIDINE URINE NEGATIVE (NEGATIVE)
[2021-03-16 06:39] LABS: ALBUMIN 3.8 GM/DL (3.2-5.2); ALT/SGPT 39 U/L (12-78); BILIRUBIN,DIRECT 0.2 MG/DL (0.0-0.2); BILIRUBIN,TOTAL 0.7 MG/DL (0.2-1.0); BLOOD UREA NITROGEN 13 MG/DL (7-18); CALCIUM LEVEL 9.1 MG/DL (8.5-10.1); CARBON DIOXIDE LEVEL 26 MEQ/L (21-32); CHLORIDE LEVEL 106 MEQ/L (98-107); CREATININE FOR GFR 1.03 MG/DL (0.70-1.30); GLOMERULAR FILTRATION RATE > 60.0 (>60); GLUCOSE, FASTING 92 MG/DL (70-100); POTASSIUM SERUM 3.9 MEQ/L (3.5-5.1); SALICYLATE LEVEL 4.2 MG/DL (5.0-30.0); SODIUM LEVEL 140 MEQ/L (136-145); TOTAL PROTEIN 7.5 GM/DL (6.4-8.2)
[2021-03-16 06:40] LABS: ACETAMINOPHEN LEVEL < 2.0 UG/ML (10.0-30.0); ETHYL ALCOHOL (ETHANOL) < 0.003 % (0.000-0.010)
[2021-03-16 13:51] LABS: LITHIUM LEVEL < 0.20 MEQ/L (0.60-1.20)
[2021-03-16] MEDS ORDERED: HOME MED LIST COMPLETE! XX SCH (15:10)
[2021-03-16 15:47] LABS: RSV AMPLIFICATION NEGATIVE (NEGATIVE)
[2021-03-16] MEDS ORDERED: traZODone 50 MG TAB PO PRN (20:35)
[2021-03-16] MEDS ORDERED: MOM 30ML SUSPENSION UDC PO PRN (20:35)
[2021-03-16] MEDS ORDERED: ACETAMINOPHEN TAB 650MG DOSE (2X325MG) PO PRN (20:35)
[2021-03-16] MEDS ORDERED: OLANZapine ORAL DISINTEGRATING TAB 5MG PO PRN (20:35)
[2021-03-16] MEDS ORDERED: MAALOX 30 ML SUSP *UDC PO PRN (20:35)
[2021-03-16 23:10] VITALS: BP 116/73
[2021-03-17 07:08] VITALS: BP 113/67
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
[2021-03-17] MEDS: PALIPERIDONE 6 MG ER TAB (INVEGA) PO SCH (11:52)
[2021-03-17] MEDS: LEVOTHYROXINE 50MCG TABLET (0.05MG) PO SCH (11:52)
[2021-03-17] MEDS: FLUoxetine 20 MG CAP PO SCH (11:52)
[2021-03-17] MEDS: NICOTINE 21MG/24HR 1 EA TRANSDERMAL TD SCH (11:53)
[2021-03-17 18:07] VITALS: BP 150/79
--- NOTE | 2021-03-17 20:51 | HPEPDOC ---
General Date of Admission Mar 16, 2021 at 20:34 Date of Service: Mar 17, 2021 Chief Complaint The patient is a 30-year-old male admitted with a reason for visit of Unspecified Depressive Disorder. Source: Patient History of Present Illness Patient is a 30 years old male with past medical history of bipolar disorder, depression, anxiety with depression. He told me that he had suicidal ideation. He did not take his medication regularly. Patient's told me that he did does not have any fever, chills, nausea, vomiting, diarrhea or dysuria. He complains of plantar feet pain. Home Medications No Active Prescriptions or Reported Meds Allergies Coded Allergies: No Known Allergies (Unverified , 03/04/21) Past Medical History Medical History Depression, obesity, bipolar disorder, anxiety Family History Mom has hyperlipidemia, father had a stroke Social History * Smoker: current smoker Alcohol: Denies Drugs: denies A-FIB/CHADSVASC A-FIB History Current/History of A-Fib/PAF?: No Current PO Anticoag Therapy: No Age/Risk Factor Scoring CHADSVASC: CHADSVASC Response (Comments) Value Age Risk Factor Age < 65 years old 0 Gender Risk Factor Male 0 Hx of CHF No 0 Hx of HTN No 0 Hx of Stroke/TIA/or VTE No 0 Hx of Diabetes No 0 Hx of Vascular Disease No 0 Total 0 Review of Systems Constitutional: Denies: Chills, Fever Eyes: Denies: Pain ENT: Denies: Head Aches Skin: Denies: Rash Pulmonary: Denies: Dyspnea Cardiovascular: Denies: Chest Pain Gastrointestinal: Denies: Nausea Genitourinary: Denies: Dysuria, Frequency Hematologic: Denies: Bruising Endocrine: Denies: Polydipsia Musculoskeletal: Reports: Foot Pain Neurological: Denies: Weakness Psych: Reports: Anxiety, Depression Physical Examination General Exam: Positive: Alert, Cooperative Eye Exam: Positive: PERRLA ENT Exam: Positive: Atraumatic Neck Exam: Positive: Supple; Negative: JVD Chest Exam: Positive: Clear to auscultation Heart Exam: Positive: Rate Normal Telemetry: Positive: No significant arrhythmia Abdomen Exam: Positive: Normal bowel sounds Extremity Exam: Negative: Clubbing, Cyanosis Skin Exam: Positive: Other skin issue (calices on heels ) Vital Signs Vital Signs Date Time Temp Pulse Resp B/P (MAP) Pulse Ox O2 Delivery O2 Flow Rate FiO2 8/25/21 18:07 97.6 78 18 150/79 (102) 03/17/21 07:08 98 Room Air Assessment/Plan Patient is a 30 years old male with past medical history of bipolar disorder, depression, anxiety with depression. He told me that he had suicidal ideation. He did not take his medication regularly. Patient's told me that he did does not have any fever, chills, nausea, vomiting, diarrhea or dysuria. He complains of plantar feet pain. Problems (1) Hypothyroid Status: Acute Problem Text: Continue Synthroid (2) Dermatophytosis of foot Status: Chronic Problem Text: Follow-up with set builder in the outpatient settings (3) Suicidal ideation Status: Chronic Problem Text: Defer treatment to psych team Plan / VTE VTE Prophylaxis Ordered?: No VTE Exclusion Mechanical Proph: Low Risk for VTE TIANA ARAUZ DO Mar 17, 2021 20:50
[2021-03-18] MEDS: LEVOTHYROXINE 50MCG TABLET (0.05MG) PO SCH (06:12)
[2021-03-18 06:42] VITALS: BP 143/92
[2021-03-18] MEDS: FLUoxetine 20 MG CAP PO SCH (09:20)
[2021-03-18] MEDS: NICOTINE 21MG/24HR 1 EA TRANSDERMAL TD SCH (09:20)
[2021-03-18] MEDS: PALIPERIDONE 6 MG ER TAB (INVEGA) PO SCH (09:20)
[2021-03-18 09:29] LABS: CHOLESTEROL RISK RATIO 7.111 (<5)
[2021-03-18 11:53] LABS: HEMOGLOBIN A1c 5.2 %
--- NOTE | 2021-03-18 12:08 | MHIPNPDOC ---
[facility] Progress Note Progress Note DATE OF SERVICE: 03/18/21 HISTORY: Patient is a 30 -year-old , male, who has a past psychiatric hx of bipolar yang, depression, anxiety, who presented to the ED by walking in from [facility], negative for drugs or alcohol on toxicology screen, states he was feeling depressed and feet hurt. Reports being noncompliant with medications and needing to get back on them. States is prescribed through [facility] but has not followed up with outpatient. Interval: Charts reviewed, patient lying comfortably in bed. States he feels an improvement now that he is back on his medications, no allergic reactions or side effects endorsed, no issues of ambulation and aims score of 0. Tolerated being back on the Synthroid, ordered repeat TSH. Patient states mood is "okay", denies suicidal or homicidal ideation, denies auditory or visual hallucinations. No aggression noted. No acute distress or physical symptoms noted. VITAL SIGNS: See below. NEW TEST RESULTS: Per yesterday had a TSH of 59, today reordered TSH CURRENT MEDICATIONS: See below. MENTAL STATUS EXAMINATION: Patient is a 30-year old male, who is obese, long red hair in a ponytail, strabismus, calluses on feet, appears stated age, dressed in hospital clothing. Speech: Is fluent, normal rate, normal rhythm, normal volume Language skills are intact. Thought processes including: Linear and logical. Thought content: Denies active suicidal ideations, denies homicidal ideations. Abstract reasoning, and computation: Intact. Description of associations: Intact. Description of abnormal or psychotic thoughts: Denies. Judgment: Fair, improved. Insight: Good. Orientation: X4. Recent and remote memory: Intact. Attention span and concentration: Fair. Language: Cook Islander. Fund of knowledge: Average. Mood: Okay. Affect: Mildly dysthymic, mood can, appropriate, mildly constricted. DIAGNOSES: Bipolar I disorder per history Tobacco use disorder History of Homelessness ASSESSMENT: Patient reports mood is improved, denies psychotic symptoms since returning on Invega 6 mg, has had 2 days without allergies or side effects. Agreeable to getting IM injection to every 4 mg, aware of common and rare side effects including EPS, NMS, allergy, tardive dyskinesia which can be permanent, GI side effects and other illicit side effects. MANAGEMENT PLAN: Patient will received here and 34 mg IM Invega Sustenna today, TSH is reordered after starting Synthroid, per chart review and medical evaluation by hospitalist team has plantar foot pain and requires an outpatient dermatology follow-up. Musella was 0.2 on initial ED visit, plan for possible discharge tomorrow, will need 154 mg IM booster in 1 week and continue on oral medications. Coordination of care with treatment team including social work for outpatient follow-up, stable living situation. TIME SPENT: 25 minutes. Vital Signs Vital Signs Date Time Temp Pulse Resp B/P (MAP) Pulse Ox O2 Delivery O2 Flow Rate FiO2 03/18/21 06:42 97.0 71 18 143/92 (109) 97 Room Air Laboratory Data 24H Labs Laboratory Tests 2 03/18/21 08:56: Estimated Mean Plasma Glucose 103, Hemoglobin A1c 5.2, Triglycerides Level 247H, Total Cholesterol 192, LDL Cholesterol 116H, Non-HDL Cholesterol (LDL + VLDL) 165, Total HDL Cholesterol 27L, Cholesterol/HDL Ratio 7.111H Current Medications Current Medications Medications (Trade) Dose Ordered Sig/Nadege Route PRN Reason Start Time Stop Time Status Last Admin Dose Admin Acetaminophen (Tylenol Tab) 650 mg Q6HP PRN PO HEADACHE or MILD DISCOMFORT 03/16/21 20:35 Al Hydrox/Mg Hydrox/Simethicone (Mylanta) 30 ml Q4HP PRN PO HEARTBURN/INDIGESTION 03/16/21 20:35 Fluoxetine HCl (PROzac) 40 mg DAILY PO 03/17/21 09:00 03/18/21 09:20 Home Med (Home Med List Complete!) ASDIRECTED XX 03/16/21 15:10 03/16/21 15:11 DC Levothyroxine Sodium (Synthroid) 50 mcg DAILY@06 PO 03/17/21 10:30 03/18/21 06:12 Magnesium Hydroxide (Milk Of Magnesia) 30 ml DAILYPRN PRN PO CONSTIPATION 03/16/21 20:35 Nicotine (Nicoderm Cq 21mg) 1 patch DAILY TD 03/17/21 09:00 03/18/21 09:20 Olanzapine (ZyPREXA ZYDIS) 5 mg Q4HP PRN PO ANXIETY/AGITATION 03/16/21 20:35 03/16/21 23:31 Paliperidone (Invega) 6 mg DAILY PO 03/17/21 10:30 03/18/21 09:20 Trazodone HCl (Desyrel) 50 mg QHSP PRN PO INSOMNIA 03/16/21 20:35 Allergies Coded Allergies: No Known Allergies (Unverified , 03/04/21) ALPHONSE VILLAR MD Mar 18, 2021 12:08
[2021-03-18] MEDS ORDERED: PALIPERIDONE PALMITATE 234MG/1.5ML INJ (INVEGA)(FREE PSY INPT ONLY) IM ONE (14:00)
[2021-03-18 17:14] VITALS: BP 136/81
[2021-03-19 05:35] VITALS: BP 126/65
[2021-03-19] MEDS: LEVOTHYROXINE 50MCG TABLET (0.05MG) PO SCH (05:55)
[2021-03-19] MEDS: FLUoxetine 20 MG CAP PO SCH (08:06)
[2021-03-19] MEDS: PALIPERIDONE 6 MG ER TAB (INVEGA) PO SCH (08:06)
[2021-03-19] MEDS: NICOTINE 21MG/24HR 1 EA TRANSDERMAL TD SCH (08:07)
[2021-03-19] MEDS ORDERED: LEVOTHYROXINE 50MCG TABLET (0.05MG) PO SCH (08:35)
[2021-03-19] MEDS ORDERED: LEVOTHYROXINE 50MCG TABLET (0.05MG) PO ONE (09:00)
[2021-03-19] MEDS ORDERED: TRAZ-252 PO (09:12)
[2021-03-19] MEDS ORDERED: PALI1TAB3 PO (09:12)
[2021-03-19] MEDS ORDERED: LEVO100T5 PO (09:12)
[2021-03-19] MEDS ORDERED: INVE117I IM (09:12)
[2021-03-19] MEDS ORDERED: FLUO20CA22 PO (09:12)
[2021-03-19] MEDS ORDERED: INVE156I IM (09:12)
[2021-03-19] MEDS ORDERED: NICO21PAT TD (09:12)
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
== END 2021-03-19 11:32 | disposition home or self-care (01) | DRG 753 ==
LOC: M ED 03:29 → M ED INP 20:34 → M PSY 23:10
PROVIDERS: ADMIT Student in an Organized Health Care Education/Training Program; ATTEND Student in an Organized Health Care Education/Training Program
DX: F31.5 Bipolar disorder, current episode depressed, severe, with psychotic features (principal); R45.851 Suicidal ideations; Z68.42 Body mass index [BMI] 45.0-49.9, adult; F17.200 Nicotine dependence, unspecified, uncomplicated; B35.3 Tinea pedis; E03.9 Hypothyroidism, unspecified; F25.0 Schizoaffective disorder, bipolar type; Z91.14 Patient's other noncompliance with medication regimen; Z59.0 Homelessness; Z65.2 Problems related to release from prison; H50.9 Unspecified strabismus; E66.9 Obesity, unspecified

== ENCOUNTER 2021-04-22 23:41 | Emergency (ER) | payer OTHER ==
[~2021-04-22] VITALS: Ht 175.3 cm; Wt 149.7 kg
[~2021-04-22 23:41] MED LIST changes: +INVE117I IM; +INVE156I IM; +LEVO100T5 PO; +PALI1TAB3 PO
[2021-04-23 02:10] LABS: HEMATOCRIT 39.3 % (42.0-52.0); HEMOGLOBIN 13.2 g/dl (13.5-17.5); MEAN CORPUSCULAR HEMOGLOBIN 29.5 pg (27.0-33.0); MEAN CORPUSCULAR HGB CONC 33.6 g/dl (32.0-36.5); MEAN CORPUSCULAR VOLUME 87.9 fl (80.0-96.0); PLATELET COUNT, AUTOMATED 277 10^3/uL (150-450); RED BLOOD COUNT 4.47 10^6/uL (4.30-6.10); WHITE BLOOD COUNT 13.7 10^3/uL (4.0-10.0)
[2021-04-23 02:19] LABS: AMPHETAMINES LEVEL URINE NEGATIVE (NEGATIVE); BARBITURATES URINE NEGATIVE (NEGATIVE); BENZODIAZEPINES URINE NEGATIVE (NEGATIVE); CANNABINOIDS URINE POSITIVE (NEGATIVE); COCAINE METABOLITE URINE NEGATIVE (NEGATIVE); METHADONE URINE NEGATIVE (NEGATIVE); OPIATES URINE NEGATIVE (NEGATIVE); PHENCYCLIDINE URINE NEGATIVE (NEGATIVE)
[2021-04-23 03:03] LABS: BLOOD UREA NITROGEN 18 MG/DL (7-18); CALCIUM LEVEL 8.5 MG/DL (8.5-10.1); CARBON DIOXIDE LEVEL 26 MEQ/L (21-32); CHLORIDE LEVEL 108 MEQ/L (98-107); CREATININE FOR GFR 0.91 MG/DL (0.70-1.30); GLOMERULAR FILTRATION RATE > 60.0 (>60); GLUCOSE, FASTING 85 MG/DL (70-100); POTASSIUM SERUM 3.8 MEQ/L (3.5-5.1); SODIUM LEVEL 142 MEQ/L (136-145)
[2021-04-23 03:04] LABS: ACETAMINOPHEN LEVEL < 2.0 UG/ML (10.0-30.0); ALBUMIN 3.3 GM/DL (3.2-5.2); ALT/SGPT 24 U/L (12-78); BILIRUBIN,DIRECT < 0.1 MG/DL (0.0-0.2); BILIRUBIN,TOTAL 0.3 MG/DL (0.2-1.0); ETHYL ALCOHOL (ETHANOL) 0.003 % (0.000-0.010); LITHIUM LEVEL < 0.20 MEQ/L (0.60-1.20); SALICYLATE LEVEL < 1.7 MG/DL (5.0-30.0); TOTAL PROTEIN 6.5 GM/DL (6.4-8.2)
[2021-04-23 03:26] LABS: FREE T4 0.35 NG/DL (0.76-1.46)
[2021-04-23 04:59] LABS: RSV AMPLIFICATION NEGATIVE (NEGATIVE)
[2021-04-23] MEDS ORDERED: ACETAMINOPHEN TAB 650MG DOSE (2X325MG) PO PRN (05:15)
[2021-04-23] MEDS ORDERED: traZODone 50 MG TAB PO PRN (05:15)
[2021-04-23] MEDS ORDERED: OLANZapine ORAL DISINTEGRATING TAB 5MG PO PRN (05:15)
[2021-04-23] MEDS ORDERED: MAALOX 30 ML SUSP *UDC PO PRN (05:15)
[2021-04-23] MEDS ORDERED: MOM 30ML SUSPENSION UDC PO PRN (05:15)
[2021-04-23] MEDS ORDERED: LEVOTHYROXINE 100MCG TABLET (0.1MG) PO SCH ×2 (06:00)
[2021-04-23 08:28] VITALS: BP 136/88
[2021-04-23] MEDS ORDERED: SERTRALINE HCL 50 MG TAB PO SCH (09:00)
[2021-04-23] MEDS ORDERED: LEVO100T5 PO (09:44)
[2021-04-23] MEDS ORDERED: TRAZ-186 PO (09:44)
[2021-04-23] MEDS ORDERED: FLUO20CA22 PO (09:44)
[2021-04-23] MEDS ORDERED: HOME MED LIST COMPLETE! XX SCH (09:45)
--- NOTE | 2021-04-23 10:05 | ED PDOC ---
Post-Departure Follow-Up Seen in consult by Dr. Mendieta and a discharge plan arranged Sahil Richardson M.D. Apr 23, 2021 10:05
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
== END 2021-04-23 10:17 | disposition home or self-care (01) ==
LOC: M ED 23:41 → M ED INP 04-23 05:12 → UNDOADMIN 04-23 05:12 → M ED INP 04-23 10:17 → M ED 04-23 10:17
DX: F32.9 Major depressive disorder, single episode, unspecified (principal); R45.851 Suicidal ideations; F31.89 Other bipolar disorder; F17.200 Nicotine dependence, unspecified, uncomplicated; Z79.899 Other long term (current) drug therapy

== ENCOUNTER 2022-05-01 09:32 | Emergency (ER) | payer OTHER ==
[~2022-05-01] VITALS: Ht 175.3 cm; Wt 167.9 kg
[~2022-05-01 09:32] MED LIST changes: +TRAZ-186 PO
[2022-05-01] MEDS ORDERED: LEVO150T7 PO (10:03)
[2022-05-01 11:32] LABS: BASO % 0.3 % (0.0-1.0); EOS # 0.7 10^3/uL (0.0-0.5); EOS % 6.9 % (0.0-3.0); HEMATOCRIT 45.6 % (42.0-52.0); HEMOGLOBIN 15.3 g/dl (13.5-17.5); LYMPH # 1.6 10^3/uL (1.5-5.0); LYMPH % 16.9 % (24.0-44.0); MEAN CORPUSCULAR HEMOGLOBIN 28.7 pg (27.0-33.0); MEAN CORPUSCULAR HGB CONC 33.6 g/dl (32.0-36.5); MEAN CORPUSCULAR VOLUME 85.6 fl (80.0-96.0); MONO # 0.5 10^3/uL (0.0-0.8); MONO % 5.6 % (2.0-8.0); NEUTROPHILS # 6.6 10^3/uL (1.5-8.5); NEUTROPHILS % 69.3 % (36.0-66.0); PLATELET COUNT, AUTOMATED 346 10^3/uL (150-450); RED BLOOD COUNT 5.33 10^6/uL (4.30-6.10); WHITE BLOOD COUNT 9.6 10^3/uL (4.0-10.0)
[2022-05-01 12:01] LABS: ERYTHROCYTE SEDIMENTATION RATE 19 mm/hr (0-15)
[2022-05-01] MEDS ORDERED: BACITRACIN OINTMENT 30GM TUBE TOP STA (12:17)
[2022-05-01] MEDS ORDERED: BACTRIM 160MG/800MG DS TAB PO ONE (12:20)
[2022-05-01] MEDS ORDERED: BACI500O8 TOP (12:24)
[2022-05-01] MEDS ORDERED: BACT800T5 PO (12:24)
[2022-05-01 12:45] LABS: BLOOD UREA NITROGEN 11 MG/DL (7-18); CALCIUM LEVEL 9.2 MG/DL (8.5-10.1); CARBON DIOXIDE LEVEL 23 MEQ/L (21-32); CHLORIDE LEVEL 106 MEQ/L (98-107); CREATININE FOR GFR 0.81 MG/DL (0.70-1.30); GLOMERULAR FILTRATION RATE > 60.0 (>60); GLUCOSE, FASTING 102 MG/DL (70-100); POTASSIUM SERUM 4.6 MEQ/L (3.5-5.1); SODIUM LEVEL 134 MEQ/L (136-145)
[2022-05-01 12:46] VITALS: BP 139/98
== END 2022-05-01 12:50 | disposition home or self-care (01) ==
LOC: M ED 09:32 → EDBD 09:32 → M ED 12:50
DX: T20.45XA Corrosion of unspecified degree of scalp [any part], initial encounter (principal); T49.4X5A Adverse effect of keratolytics, keratoplastics, and other hair treatment drugs and preparations, initial encounter; R22.0 Localized swelling, mass and lump, head; K58.9 Irritable bowel syndrome, unspecified; H05.221 Edema of right orbit; F17.200 Nicotine dependence, unspecified, uncomplicated; T31.0 Burns involving less than 10% of body surface

== ENCOUNTER → 2022-07-19 | Outpatient (REF) | payer OTHER ==
[~2022-07-19] MED LIST changes: +BACI500O8 TOP; +BACT800T5 PO; +LEVO150T7 PO
[2022-07-19 17:15] LABS: ALBUMIN 3.8 G/DL (3.2-5.2); ALKALINE PHOSPHATASE 107 U/L (46-116); ALT/SGPT 31 U/L (7.0-40); AST/SGOT 21 U/L (<34); BILIRUBIN,TOTAL 0.2 MG/DL (0.3-1.2); BLOOD UREA NITROGEN 16 MG/DL (9-23); CALCIUM LEVEL 9.5 MG/DL (8.5-10.1); CARBON DIOXIDE LEVEL 24 MMOL/L (20-31); CHLORIDE LEVEL 102 MMOL/L (98-107); CHOLESTEROL LEVEL 250 MG/DL (<200); CHOLESTEROL RISK RATIO 7.24 (<5); CREATININE FOR GFR 0.73 MG/DL (0.70-1.30); GLOMERULAR FILTRATION RATE > 60.0 (>60); GLUCOSE, FASTING 99 MG/DL (60-100); HDL CHOLESTEROL 34.5 MG/DL (>40); NON-HDL-C 216 MG/DL; POTASSIUM SERUM 4.6 MMOL/L (3.5-5.1); SODIUM LEVEL 136 MMOL/L (136-145); TOTAL PROTEIN 7.5 G/DL (5.7-8.2); TRIGLYCERIDES LEVEL 447 MG/DL (<150)
[2022-07-19 17:18] LABS: THYROID STIMULATING HORMONE 7.143 uIU/ML (0.55-4.78)
== END ==
LOC: M LAB REF 16:04
PROVIDERS: ATTEND Family Medicine Addiction Medicine
DX: E03.9 Hypothyroidism, unspecified (principal)

== ENCOUNTER 2022-12-25 16:57 | Emergency (ER) | payer MEDICAID, OTHER ==
[~2022-12-25] VITALS: Ht 172.7 cm; Wt 157.1 kg
[2022-12-25 18:27] LABS: HEMOGLOBIN 14.5 g/dl (13.5-17.5); MEAN CORPUSCULAR HEMOGLOBIN 29.2 pg (27.0-33.0); MEAN CORPUSCULAR HGB CONC 33.7 g/dl (32.0-36.5); MEAN CORPUSCULAR VOLUME 86.5 fl (80.0-96.0); PLATELET COUNT, AUTOMATED 395 10^3/uL (150-450); RED BLOOD COUNT 4.97 10^6/uL (4.30-6.10); WHITE BLOOD COUNT 10.9 10^3/uL (4.0-10.0)
[2022-12-25 18:56] LABS: AMPHETAMINES LEVEL URINE NEGATIVE (NEGATIVE); BARBITURATES URINE NEGATIVE (NEGATIVE); BENZODIAZEPINES URINE NEGATIVE (NEGATIVE); CANNABINOIDS URINE NEGATIVE (NEGATIVE); COCAINE METABOLITE URINE NEGATIVE (NEGATIVE); METHADONE URINE NEGATIVE (NEGATIVE); OPIATES URINE NEGATIVE (NEGATIVE); PHENCYCLIDINE URINE NEGATIVE (NEGATIVE)
[2022-12-25 18:58] LABS: ETHYL ALCOHOL (ETHANOL) < 0.003 % (0.000-0.010)
[2022-12-25 18:59] LABS: ACETAMINOPHEN LEVEL < 2.0 UG/ML (10.0-20.0); ALBUMIN 4.2 G/DL (3.2-5.2); ALKALINE PHOSPHATASE 107 U/L (46-116); ALT/SGPT 38 U/L (7.0-40); AST/SGOT 15 U/L (<34); BILIRUBIN,DIRECT 0.1 MG/DL (<0.4); BILIRUBIN,TOTAL 0.3 MG/DL (0.3-1.2); BLOOD UREA NITROGEN 14 MG/DL (9-23); CALCIUM LEVEL 9.1 MG/DL (8.5-10.1); CARBON DIOXIDE LEVEL 24 MMOL/L (20-31); CHLORIDE LEVEL 105 MMOL/L (98-107); CREATININE FOR GFR 0.87 MG/DL (0.70-1.30); GLOMERULAR FILTRATION RATE > 60.0 (>60); GLUCOSE, FASTING 91 MG/DL (60-100); POTASSIUM SERUM 4.1 MMOL/L (3.5-5.1); SALICYLATE LEVEL < 3.0 MG/DL (<30); SODIUM LEVEL 139 MMOL/L (136-145); TOTAL PROTEIN 7.1 G/DL (5.7-8.2)
[2022-12-25 19:01] LABS: THYROID STIMULATING HORMONE 13.851 uIU/ML (0.55-4.78)
[2022-12-25] MEDS ORDERED: LEVO175T2 PO (19:41)
[2022-12-25] MEDS ORDERED: INVE117I INJ (19:41)
[2022-12-25] MEDS ORDERED: HOME MED LIST COMPLETE! XX SCH (19:45)
[2022-12-25 20:47] VITALS: BP 141/85; TEMP 98.1; O2SAT 97
== END 2022-12-25 21:05 | disposition home or self-care (01) ==
LOC: M ED 16:57
DX: R53.83 Other fatigue (principal); F31.9 Bipolar disorder, unspecified; F17.200 Nicotine dependence, unspecified, uncomplicated; Z79.899 Other long term (current) drug therapy

== ENCOUNTER 2023-02-18 14:26 | Emergency (ER) | payer OTHER ==
[~2023-02-18] VITALS: Ht 175.3 cm; Wt 158.5 kg
[~2023-02-18 14:26] MED LIST changes: +INVE117I INJ; +LEVO175T2 PO
[2023-02-18 14:27] VITALS: TEMP 97.4
[2023-02-18 16:25] LABS: HEMATOCRIT 42.9 % (42.0-52.0); HEMOGLOBIN 14.7 g/dl (13.5-17.5); MEAN CORPUSCULAR HEMOGLOBIN 29.6 pg (27.0-33.0); MEAN CORPUSCULAR HGB CONC 34.3 g/dl (32.0-36.5); MEAN CORPUSCULAR VOLUME 86.3 fl (80.0-96.0); PLATELET COUNT, AUTOMATED 352 10^3/uL (150-450); RED BLOOD COUNT 4.97 10^6/uL (4.30-6.10); WHITE BLOOD COUNT 10.1 10^3/uL (4.0-10.0)
[2023-02-18 16:45] LABS: ETHYL ALCOHOL (ETHANOL) < 0.003 % (0.000-0.010)
[2023-02-18 16:47] LABS: SALICYLATE LEVEL < 3.0 MG/DL (<30)
[2023-02-18 16:48] LABS: ACETAMINOPHEN LEVEL < 2.0 UG/ML (10.0-20.0); ALBUMIN 4.5 G/DL (3.2-5.2); ALKALINE PHOSPHATASE 116 U/L (46-116); ALT/SGPT 30 U/L (7.0-40); AST/SGOT 10 U/L (<34); BILIRUBIN,DIRECT < 0.1 MG/DL (<0.4); BILIRUBIN,TOTAL 0.3 MG/DL (0.3-1.2); BLOOD UREA NITROGEN 10 MG/DL (9-23); CARBON DIOXIDE LEVEL 21 MMOL/L (20-31); CHLORIDE LEVEL 106 MMOL/L (98-107); CREATININE FOR GFR 0.78 MG/DL (0.70-1.30); GLOMERULAR FILTRATION RATE > 60.0 (>60); GLUCOSE, FASTING 91 MG/DL (60-100); SODIUM LEVEL 138 MMOL/L (136-145); TOTAL PROTEIN 7.4 G/DL (5.7-8.2)
[2023-02-18 16:50] LABS: THYROID STIMULATING HORMONE 15.877 uIU/ML (0.55-4.78)
[2023-02-18] MEDS ORDERED: NS 1,000 ML IV ONE (17:10)
[2023-02-18 17:26] LABS: CPK CREATINE PHOSPHOKINASE 89 U/L (46-171)
[2023-02-18 17:30] LABS: FREE T4 0.78 NG/DL (0.89-1.76)
[2023-02-18 17:45] LABS: AMPHETAMINES LEVEL URINE NEGATIVE (NEGATIVE); BARBITURATES URINE NEGATIVE (NEGATIVE); BENZODIAZEPINES URINE NEGATIVE (NEGATIVE); COCAINE METABOLITE URINE NEGATIVE (NEGATIVE); METHADONE URINE NEGATIVE (NEGATIVE)
[2023-02-18 17:46] LABS: CANNABINOIDS URINE NEGATIVE (NEGATIVE); OPIATES URINE NEGATIVE (NEGATIVE)
[2023-02-18 17:57] LABS: PHENCYCLIDINE URINE POSITIVE (NEGATIVE)
[2023-02-18] MEDS ORDERED: HOME MED LIST COMPLETE! XX SCH (20:20)
[2023-02-18 22:16] VITALS: BP 176/83
[2023-02-18 22:30] VITALS: O2SAT 95
== END 2023-02-18 22:57 | disposition home or self-care (01) ==
LOC: M ED 14:26
DX: F19.10 Other psychoactive substance abuse, uncomplicated (principal); T48.5X2A Poisoning by other anti-common-cold drugs, intentional self-harm, initial encounter; E03.9 Hypothyroidism, unspecified; F25.1 Schizoaffective disorder, depressive type; F17.200 Nicotine dependence, unspecified, uncomplicated; F12.10 Cannabis abuse, uncomplicated; Z79.899 Other long term (current) drug therapy

== ENCOUNTER → 2023-04-05 | Outpatient (REF) | payer OTHER | LOC: M LAB REF 16:47 | PROVIDERS: ATTEND Family Medicine Addiction Medicine | DX: E03.9 Hypothyroidism, unspecified (principal) ==

== ENCOUNTER 2023-04-18 23:31 | Inpatient (IN) | payer MEDICAID, OTHER, SELFPAY ==
[~2023-04-18] VITALS: Ht 175.3 cm; Wt 160.2 kg
[2023-04-18] MEDS ORDERED: NS 1,000 ML IV ONE (23:45)
[2023-04-19 00:24] LABS: BASO # 0.1 10^3/uL (0.0-0.2); BASO % 0.8 % (0.0-1.0); EOS # 0.2 10^3/uL (0.0-0.5); EOS % 2.4 % (0.0-3.0); HEMATOCRIT 41.3 % (42.0-52.0); HEMOGLOBIN 13.7 g/dl (13.5-17.5); LYMPH # 1.5 10^3/uL (1.5-5.0); MEAN CORPUSCULAR HEMOGLOBIN 29.1 pg (27.0-33.0); MEAN CORPUSCULAR HGB CONC 33.2 g/dl (32.0-36.5); MEAN CORPUSCULAR VOLUME 87.9 fl (80.0-96.0); MONO # 0.7 10^3/uL (0.0-0.8); MONO % 11.1 % (2.0-8.0); NEUTROPHILS # 3.9 10^3/uL (1.5-8.5); PLATELET COUNT, AUTOMATED 330 10^3/uL (150-450); WHITE BLOOD COUNT 6.3 10^3/uL (4.0-10.0)
[2023-04-19 00:44] LABS: AMPHETAMINES LEVEL URINE NEGATIVE (NEGATIVE); BARBITURATES URINE NEGATIVE (NEGATIVE); BENZODIAZEPINES URINE NEGATIVE (NEGATIVE); CANNABINOIDS URINE NEGATIVE (NEGATIVE); COCAINE METABOLITE URINE NEGATIVE (NEGATIVE); METHADONE URINE NEGATIVE (NEGATIVE); OPIATES URINE NEGATIVE (NEGATIVE); PHENCYCLIDINE URINE NEGATIVE (NEGATIVE)
[2023-04-19 00:56] LABS: RSV AMPLIFICATION NEGATIVE (NEGATIVE)
[2023-04-19 00:59] LABS: ETHYL ALCOHOL (ETHANOL) < 0.003 % (0.000-0.010)
[2023-04-19 01:00] LABS: SALICYLATE LEVEL < 3.0 MG/DL (<30)
[2023-04-19 01:01] LABS: ACETAMINOPHEN LEVEL < 2.0 UG/ML (10.0-20.0); ALBUMIN 3.8 G/DL (3.2-5.2); ALKALINE PHOSPHATASE 110 U/L (46-116); ALT/SGPT 37 U/L (7.0-40); AST/SGOT 29 U/L (<34); BILIRUBIN,DIRECT < 0.1 MG/DL (<0.4); BILIRUBIN,TOTAL 0.2 MG/DL (0.3-1.2); BLOOD UREA NITROGEN 23 MG/DL (9-23); CALCIUM LEVEL 8.9 MG/DL (8.5-10.1); CARBON DIOXIDE LEVEL 25 MMOL/L (20-31); CHLORIDE LEVEL 106 MMOL/L (98-107); CREATININE FOR GFR 0.88 MG/DL (0.70-1.30); GLOMERULAR FILTRATION RATE > 60.0 (>60); GLUCOSE, FASTING 101 MG/DL (60-100); POTASSIUM SERUM 4.2 MMOL/L (3.5-5.1); SODIUM LEVEL 138 MMOL/L (136-145); TOTAL PROTEIN 7.1 G/DL (5.7-8.2)
[2023-04-19 01:03] LABS: THYROID STIMULATING HORMONE 26.014 uIU/ML (0.55-4.78)
[2023-04-19 01:04] LABS: CPK CREATINE PHOSPHOKINASE 129 U/L (46-171)
[2023-04-19 01:30] LABS: FREE T4 0.91 NG/DL (0.89-1.76)
[2023-04-19] MEDS ORDERED: LEVOTHYROXINE 100MCG TABLET (0.1MG) PO SCH (06:00)
[2023-04-19] MEDS ORDERED: LEVOTHYROXINE 75MCG TABLET (0.075MG) PO SCH (06:00)
[2023-04-19] MEDS ORDERED: MED REC IN PROGRESS XX SCH (06:45)
[2023-04-19] MEDS ORDERED: FLUoxetine 20MG CAP PO SCH (09:00)
[2023-04-19] MEDS ORDERED: HOME MED LIST COMPLETE! XX SCH (09:50)
[2023-04-19] MEDS ORDERED: MOM 30ML SUSPENSION UDC PO PRN (12:40)
[2023-04-19] MEDS ORDERED: IBUPROFEN 400MG TAB PO PRN (12:40)
[2023-04-19] MEDS ORDERED: ACETAMINOPHEN TAB 650MG DOSE (2X325MG) PO PRN (12:40)
[2023-04-19] MEDS ORDERED: traZODone 50 MG TAB PO PRN (12:40)
[2023-04-19] MEDS ORDERED: OLANZapine ORAL DISINTEGRATING TAB 5MG PO PRN (12:40)
[2023-04-19] MEDS ORDERED: MAALOX 30 ML SUSP *UDC PO PRN (12:40)
[2023-04-19] MEDS: NICOTINE 21MG/24HR 1 EA TRANSDERMAL TD SCH (15:00)
[2023-04-19 15:59] VITALS: BP 135/94; TEMP 97.3; O2SAT 97
[2023-04-20] MEDS: LEVOTHYROXINE 100MCG TABLET (0.1MG) PO SCH (05:30)
[2023-04-20] MEDS: LEVOTHYROXINE 75MCG TABLET (0.075MG) PO SCH (05:30)
[2023-04-20] MEDS ORDERED: LEVOTHYROXINE 150MCG TABLET (0.15MG) PO SCH (06:00)
[2023-04-20 06:35] VITALS: BP 149/92; TEMP 97.2; O2SAT 97
[2023-04-20] MEDS: FLUoxetine 20MG CAP PO SCH (09:55)
[2023-04-20] MEDS: NICOTINE 21MG/24HR 1 EA TRANSDERMAL TD SCH (10:12)
[2023-04-20 19:53] VITALS: BP 136/77; TEMP 97.8; O2SAT 95
[2023-04-21] MEDS: LEVOTHYROXINE 100MCG TABLET (0.1MG) PO SCH (05:32)
[2023-04-21] MEDS: LEVOTHYROXINE 75MCG TABLET (0.075MG) PO SCH (05:32)
[2023-04-21] MEDS: NICOTINE 21MG/24HR 1 EA TRANSDERMAL TD SCH (09:31)
[2023-04-21] MEDS: FLUoxetine 20MG CAP PO SCH (09:31)
[2023-04-21 16:13] VITALS: BP 125/86; TEMP 98.3; O2SAT 95
[2023-04-22 06:43] VITALS: BP 157/92; TEMP 98.1; O2SAT 96
[2023-04-22] MEDS: LEVOTHYROXINE 75MCG TABLET (0.075MG) PO SCH (06:44)
[2023-04-22] MEDS: LEVOTHYROXINE 100MCG TABLET (0.1MG) PO SCH (06:44)
[2023-04-22] MEDS: NICOTINE 21MG/24HR 1 EA TRANSDERMAL TD SCH (09:03)
[2023-04-22] MEDS: FLUoxetine 20MG CAP PO SCH (09:03)
[2023-04-22 15:59] VITALS: BP 137/82; TEMP 96.6; O2SAT 96
[2023-04-23] MEDS: LEVOTHYROXINE 100MCG TABLET (0.1MG) PO SCH (06:10)
[2023-04-23] MEDS: LEVOTHYROXINE 75MCG TABLET (0.075MG) PO SCH (06:10)
[2023-04-23 06:34] VITALS: BP 139/74; TEMP 97.4; O2SAT 96
[2023-04-23] MEDS: FLUoxetine 20MG CAP PO SCH (09:26)
[2023-04-23] MEDS: NICOTINE 21MG/24HR 1 EA TRANSDERMAL TD SCH (09:26)
[2023-04-23 16:17] VITALS: BP_SYST 131; BP_SYST 138; BP_DIAS 77; BP_DIAS 84; TEMP 98.1; TEMP 98.7; O2SAT 95; O2SAT 99
[2023-04-24] MEDS: LEVOTHYROXINE 75MCG TABLET (0.075MG) PO SCH (05:35)
[2023-04-24] MEDS: LEVOTHYROXINE 100MCG TABLET (0.1MG) PO SCH (05:35)
[2023-04-24 06:17] VITALS: BP 118/66; TEMP 97.8; O2SAT 95
[2023-04-24] MEDS: FLUoxetine 20MG CAP PO SCH (09:28)
[2023-04-24] MEDS: NICOTINE 21MG/24HR 1 EA TRANSDERMAL TD SCH (09:34)
[2023-04-24] MEDS: AUGMENTIN 875 MG TAB PO SCH (18:30)
[2023-04-24] MEDS: CIPRODEX OTIC SUSP 7.5ML AS SCH (21:41)
[2023-04-25] MEDS: LEVOTHYROXINE 75MCG TABLET (0.075MG) PO SCH (05:30)
[2023-04-25] MEDS: AUGMENTIN 875 MG TAB PO SCH ×2 (05:30→17:07)
[2023-04-25] MEDS: LEVOTHYROXINE 100MCG TABLET (0.1MG) PO SCH (05:30)
[2023-04-25 06:01] VITALS: BP 123/72; TEMP 97.8; O2SAT 97
[2023-04-25] MEDS: FLUoxetine 20MG CAP PO SCH (10:00)
[2023-04-25] MEDS: CIPRODEX OTIC SUSP 7.5ML AS SCH ×2 (10:00→21:39)
[2023-04-25] MEDS: NICOTINE 21MG/24HR 1 EA TRANSDERMAL TD SCH (10:05)
[2023-04-26] MEDS: LEVOTHYROXINE 75MCG TABLET (0.075MG) PO SCH (05:58)
[2023-04-26] MEDS: AUGMENTIN 875 MG TAB PO SCH (05:58)
[2023-04-26] MEDS: LEVOTHYROXINE 100MCG TABLET (0.1MG) PO SCH (05:58)
[2023-04-26 06:55] VITALS: BP 131/76; TEMP 97.5; O2SAT 96
[2023-04-26] MEDS: NICOTINE 21MG/24HR 1 EA TRANSDERMAL TD SCH (09:57)
[2023-04-26] MEDS: FLUoxetine 20MG CAP PO SCH (09:58)
[2023-04-26] MEDS: CIPRODEX OTIC SUSP 7.5ML AS SCH (09:58)
[2023-04-26] MEDS ORDERED: FLUO20CA22 PO (13:42)
== END 2023-04-26 14:27 | disposition home or self-care (01) | DRG 753 ==
LOC: M ED 23:31 → M ED INP 04-19 12:36 → M PSY 04-19 14:38
PROVIDERS: ADMIT Student in an Organized Health Care Education/Training Program; ATTEND Student in an Organized Health Care Education/Training Program
PROC: 8E0ZXY6 Isolation (ICD-10-PCS; principal; 2023-04-19)
DX: F31.9 Bipolar disorder, unspecified (principal); U07.1 COVID-19; R45.851 Suicidal ideations; Z68.43 Body mass index [BMI] 50.0-59.9, adult; F17.210 Nicotine dependence, cigarettes, uncomplicated; E03.9 Hypothyroidism, unspecified; E66.9 Obesity, unspecified; F41.9 Anxiety disorder, unspecified; Z87.890 Personal history of sex reassignment; Z79.899 Other long term (current) drug therapy

== ENCOUNTER 2023-08-06 21:40 | Inpatient (IN) | payer MEDICAID, OTHER ==
[~2023-08-06] VITALS: Ht 175.3 cm; Wt 157.0 kg
[2023-08-06 22:23] LABS: HEMOGLOBIN 16.2 g/dl (13.5-17.5); MEAN CORPUSCULAR HEMOGLOBIN 29.5 pg (27.0-33.0); MEAN CORPUSCULAR HGB CONC 35.2 g/dl (32.0-36.5); MEAN CORPUSCULAR VOLUME 83.6 fl (80.0-96.0); PLATELET COUNT, AUTOMATED 435 10^3/uL (150-450); WHITE BLOOD COUNT 13.4 10^3/uL (4.0-10.0)
[2023-08-06 22:38] LABS: AMPHETAMINES LEVEL URINE NEGATIVE (NEGATIVE); BARBITURATES URINE NEGATIVE (NEGATIVE); BENZODIAZEPINES URINE NEGATIVE (NEGATIVE); CANNABINOIDS URINE NEGATIVE (NEGATIVE); COCAINE METABOLITE URINE NEGATIVE (NEGATIVE); METHADONE URINE NEGATIVE (NEGATIVE); OPIATES URINE NEGATIVE (NEGATIVE); PHENCYCLIDINE URINE NEGATIVE (NEGATIVE)
[2023-08-06 22:56] LABS: ETHYL ALCOHOL (ETHANOL) < 0.003 % (0.000-0.010)
[2023-08-06 22:58] LABS: ALBUMIN 4.4 G/DL (3.2-5.2); ALKALINE PHOSPHATASE 119 U/L (46-116); ALT/SGPT 35 U/L (7.0-40); AST/SGOT 19 U/L (<34); BILIRUBIN,DIRECT 0.1 MG/DL (<0.4); BILIRUBIN,TOTAL 0.4 MG/DL (0.3-1.2); BLOOD UREA NITROGEN 12 MG/DL (9-23); CALCIUM LEVEL 10.2 MG/DL (8.5-10.1); CARBON DIOXIDE LEVEL 21 MMOL/L (20-31); CHLORIDE LEVEL 101 MMOL/L (98-107); CREATININE FOR GFR 0.92 MG/DL (0.70-1.30); GLOMERULAR FILTRATION RATE > 60.0 (>60); GLUCOSE, FASTING 105 MG/DL (60-100); SALICYLATE LEVEL < 3.0 MG/DL (<30); SODIUM LEVEL 134 MMOL/L (136-145); TOTAL PROTEIN 7.8 G/DL (5.7-8.2)
[2023-08-06 23:00] LABS: THYROID STIMULATING HORMONE 5.003 uIU/ML (0.55-4.78)
[2023-08-07] MEDS ORDERED: LORazepam 1 MG TAB PO STA (03:37)
[2023-08-07] MEDS ORDERED: LEVOTHYROXINE 100MCG TABLET (0.1MG) PO SCH (06:00)
[2023-08-07] MEDS ORDERED: LEVOTHYROXINE 75MCG TABLET (0.075MG) PO SCH (06:00)
[2023-08-07] MEDS ORDERED: FLUoxetine 20MG CAP PO SCH (09:00)
[2023-08-07] MEDS ORDERED: HOME MED LIST COMPLETE! XX SCH (19:40)
[2023-08-07] MEDS ORDERED: diphenhydrAMINE 25MG CAP PO PRN (20:40)
[2023-08-07] MEDS ORDERED: IBUPROFEN 400MG TAB PO PRN (20:40)
[2023-08-07] MEDS ORDERED: MOM 30ML SUSPENSION UDC PO PRN (20:40)
[2023-08-07] MEDS ORDERED: MAALOX 30 ML SUSP *UDC PO PRN (20:40)
[2023-08-07] MEDS ORDERED: ACETAMINOPHEN TAB 650MG DOSE (2X325MG) PO PRN (20:40)
[2023-08-08 00:45] VITALS: BP 141/91; TEMP 98.4; O2SAT 93
[2023-08-08] MEDS ORDERED: LEVOTHYROXINE 150MCG TABLET (0.15MG) PO SCH (06:00)
[2023-08-08 06:32] VITALS: BP 101/64; TEMP 97.4; O2SAT 95
[2023-08-08] MEDS: LEVOTHYROXINE 75MCG TABLET (0.075MG) PO SCH (10:52)
[2023-08-08] MEDS: LEVOTHYROXINE 100MCG TABLET (0.1MG) PO SCH (10:52)
[2023-08-08] MEDS: NICOTINE 21MG/24HR 1 EA TRANSDERMAL TD PRN (11:04)
[2023-08-08 16:22] VITALS: BP 140/90; TEMP 98; O2SAT 97
[2023-08-08] MEDS: PALIPERIDONE 3MG ER TAB (INVEGA) PO SCH (20:38)
[2023-08-08] MEDS: traZODone 50 MG TAB PO PRN (20:38)
[2023-08-09] MEDS ORDERED: LEVOTHYROXINE 150MCG TABLET (0.15MG) PO SCH (06:00)
[2023-08-09] MEDS: LEVOTHYROXINE 75MCG TABLET (0.075MG) PO SCH (06:16)
[2023-08-09] MEDS: LEVOTHYROXINE 100MCG TABLET (0.1MG) PO SCH (06:16)
[2023-08-09 06:38] VITALS: BP 127/78; TEMP 97.1; O2SAT 95
[2023-08-09] MEDS: FLUoxetine 20MG CAP PO SCH (08:47)
[2023-08-09] MEDS: NICOTINE 21MG/24HR 1 EA TRANSDERMAL TD PRN (08:47)
[2023-08-09 17:30] VITALS: BP 138/84; TEMP 98.3
[2023-08-09] MEDS: PALIPERIDONE 3MG ER TAB (INVEGA) PO SCH (20:39)
[2023-08-09] MEDS: traZODone 50 MG TAB PO PRN (20:39)
[2023-08-10] MEDS: LEVOTHYROXINE 75MCG TABLET (0.075MG) PO SCH (05:57)
[2023-08-10] MEDS: LEVOTHYROXINE 100MCG TABLET (0.1MG) PO SCH (05:57)
[2023-08-10 06:49] VITALS: BP 124/63; TEMP 98.2; O2SAT 93
[2023-08-10] MEDS: NICOTINE 21MG/24HR 1 EA TRANSDERMAL TD PRN (08:29)
[2023-08-10] MEDS: FLUoxetine 20MG CAP PO SCH (08:30)
[2023-08-10 09:06] LABS: CHOLESTEROL RISK RATIO 7.09 (<5); LDL CHOLESTEROL 113.6 MG/DL (<100)
[2023-08-10] MEDS ORDERED: FLUO20CA22 PO (13:16)
[2023-08-10] MEDS ORDERED: PALI1TAB2 PO (13:16)
[2023-08-10 17:10] VITALS: BP 136/75; TEMP 98.6; O2SAT 95
[2023-08-10] MEDS: traZODone 50 MG TAB PO PRN (20:02)
[2023-08-10] MEDS: PALIPERIDONE 3MG ER TAB (INVEGA) PO SCH (20:03)
[2023-08-11] MEDS: LEVOTHYROXINE 100MCG TABLET (0.1MG) PO SCH (05:45)
[2023-08-11] MEDS: LEVOTHYROXINE 75MCG TABLET (0.075MG) PO SCH (05:45)
[2023-08-11 06:37] VITALS: BP 130/78; TEMP 98.4; O2SAT 100
[2023-08-11] MEDS: FLUoxetine 20MG CAP PO SCH (08:27)
[2023-08-11] MEDS: NICOTINE 21MG/24HR 1 EA TRANSDERMAL TD PRN (08:28)
== END 2023-08-11 10:22 | disposition home or self-care (01) | DRG 753 ==
LOC: M ED 21:40 → M ED INP 08-07 20:39 → M PSY 08-08 00:20
PROVIDERS: ADMIT Student in an Organized Health Care Education/Training Program; ATTEND Student in an Organized Health Care Education/Training Program
DX: F31.30 Bipolar disorder, current episode depressed, mild or moderate severity, unspecified (principal); R45.851 Suicidal ideations; F17.210 Nicotine dependence, cigarettes, uncomplicated; E66.01 Morbid (severe) obesity due to excess calories; F41.9 Anxiety disorder, unspecified; E03.9 Hypothyroidism, unspecified; Z79.890 Hormone replacement therapy; Z79.899 Other long term (current) drug therapy; Z20.822 Contact with and (suspected) exposure to COVID-19; Z71.6 Tobacco abuse counseling; Z63.5 Disruption of family by separation and divorce; Z56.0 Unemployment, unspecified

== ENCOUNTER 2023-09-21 03:28 | Inpatient (IN) | payer MEDICAID, OTHER ==
[~2023-09-21] VITALS: Ht 175.3 cm; Wt 158.7 kg
[~2023-09-21 03:28] MED LIST changes: +PALI1TAB2 PO
[2023-09-21] MEDS: NS 1,000 ML IV ONE (03:51)
[2023-09-21] MEDS: MAG SULF 1GM/100ML (MAG RUN) 1 GM in IV 1 EA IV ONE ×2 (03:52→04:49)
[2023-09-21 04:15] LABS: BASO # 0.1 10^3/uL (0.0-0.2); BASO % 0.5 % (0.0-1.0); EOS # 0.1 10^3/uL (0.0-0.5); EOS % 0.6 % (0.0-3.0); HEMATOCRIT 43.6 % (42.0-52.0); HEMOGLOBIN 15.2 g/dl (13.5-17.5); LYMPH # 1.9 10^3/uL (1.5-5.0); LYMPH % 14.5 % (24.0-44.0); MEAN CORPUSCULAR HEMOGLOBIN 30.5 pg (27.0-33.0); MEAN CORPUSCULAR HGB CONC 34.9 g/dl (32.0-36.5); MEAN CORPUSCULAR VOLUME 87.4 fl (80.0-96.0); MONO # 0.7 10^3/uL (0.0-0.8); MONO % 5.6 % (2.0-8.0); NEUTROPHILS # 10.3 10^3/uL (1.5-8.5); NEUTROPHILS % 77.6 % (36.0-66.0); PLATELET COUNT, AUTOMATED 396 10^3/uL (150-450); RED BLOOD COUNT 4.99 10^6/uL (4.30-6.10); WHITE BLOOD COUNT 13.3 10^3/uL (4.0-10.0)
[2023-09-21 04:37] LABS: ETHYL ALCOHOL (ETHANOL) 0.007 % (0.000-0.010)
[2023-09-21 04:39] LABS: ALBUMIN 4.2 G/DL (3.2-5.2); ALKALINE PHOSPHATASE 105 U/L (46-116); ALT/SGPT 49 U/L (7.0-40); AST/SGOT 25 U/L (<34); BILIRUBIN,DIRECT 0.1 MG/DL (<0.4); BILIRUBIN,TOTAL 0.4 MG/DL (0.3-1.2); BLOOD UREA NITROGEN 18 MG/DL (9-23); CALCIUM LEVEL 8.8 MG/DL (8.5-10.1); CARBON DIOXIDE LEVEL 22 MMOL/L (20-31); CHLORIDE LEVEL 108 MMOL/L (98-107); GLOMERULAR FILTRATION RATE > 60.0 (>60); GLUCOSE, FASTING 101 MG/DL (60-100); POTASSIUM SERUM 3.9 MMOL/L (3.5-5.1); SALICYLATE LEVEL < 3.0 MG/DL (<30); SODIUM LEVEL 138 MMOL/L (136-145); TOTAL PROTEIN 7.4 G/DL (5.7-8.2)
[2023-09-21 04:40] LABS: THYROID STIMULATING HORMONE 16.834 uIU/ML (0.55-4.78)
[2023-09-21 04:50] LABS: CPK CREATINE PHOSPHOKINASE 125 U/L (46-171)
[2023-09-21 05:52] LABS: AMPHETAMINES LEVEL URINE NEGATIVE (NEGATIVE); BARBITURATES URINE NEGATIVE (NEGATIVE); BENZODIAZEPINES URINE NEGATIVE (NEGATIVE)
[2023-09-21 05:53] LABS: CANNABINOIDS URINE NEGATIVE (NEGATIVE); COCAINE METABOLITE URINE NEGATIVE (NEGATIVE); METHADONE URINE NEGATIVE (NEGATIVE); OPIATES URINE NEGATIVE (NEGATIVE)
[2023-09-21 05:56] LABS: PHENCYCLIDINE URINE POSITIVE (NEGATIVE)
[2023-09-21 06:17] LABS: FREE T4 0.92 NG/DL (0.89-1.76)
[2023-09-21] MEDS ORDERED: MOM 30ML SUSPENSION UDC PO PRN (12:05)
[2023-09-21] MEDS ORDERED: LORazepam 2 MG TAB PO PRN (12:05)
[2023-09-21] MEDS ORDERED: diphenhydrAMINE 25MG CAP PO PRN (12:05)
[2023-09-21] MEDS ORDERED: ACETAMINOPHEN TAB 650MG DOSE (2X325MG) PO PRN (12:05)
[2023-09-21] MEDS ORDERED: MAALOX 30 ML SUSP *UDC PO PRN (12:05)
[2023-09-21] MEDS ORDERED: IBUPROFEN 400MG TAB PO PRN (12:05)
[2023-09-21] MEDS ORDERED: PALI1TAB2 PO (13:24)
[2023-09-21] MEDS ORDERED: HOME MED LIST COMPLETE! XX SCH (13:30)
[2023-09-21 15:38] VITALS: BP 135/85; TEMP 97.2; O2SAT 99
[2023-09-21 16:34] VITALS: BP 135/85
[2023-09-21] MEDS: THIAMINE 100 MG TAB PO SCH (17:17)
[2023-09-21] MEDS: FOLIC ACID 1MG TAB PO SCH (17:17)
[2023-09-21] MEDS: MULTIVITAMINS/MINERALS THERAP 1 TAB PO SCH (17:17)
[2023-09-21] MEDS: traZODone 50 MG TAB PO PRN (21:17)
[2023-09-22 00:35] VITALS: BP 122/82
[2023-09-22 06:30] VITALS: BP 123/82; TEMP 97.7; O2SAT 94
[2023-09-22] MEDS: NICOTINE 21MG/24HR 1 EA TRANSDERMAL TD SCH (08:43)
[2023-09-22] MEDS: FLUoxetine 20MG CAP PO SCH (09:39)
[2023-09-22] MEDS: PALIPERIDONE PAL 234MG/1.5ML INJ (INVEGA)(FREE PSY INPT ONLY) IM ONE (12:23)
[2023-09-22 14:30] VITALS: BP 122/82
[2023-09-22 15:29] VITALS: BP 122/82; TEMP 98.3; O2SAT 98
[2023-09-22] MEDS: PALIPERIDONE 3MG ER TAB (INVEGA) PO SCH (21:20)
[2023-09-22 23:00] VITALS: BP 122/72
[2023-09-23 06:19] VITALS: BP 122/73; TEMP 97.8; O2SAT 98
[2023-09-23 14:19] VITALS: BP 135/85
[2023-09-23] MEDS: HYDROCORTISONE 1% CREAM 30GM TOP PRN (15:42)
[2023-09-23 16:09] VITALS: BP 135/85; TEMP 97.5; O2SAT 94
[2023-09-24 06:40] VITALS: BP 121/61; TEMP 97.7; O2SAT 94
[2023-09-24 16:03] VITALS: BP 138/89; TEMP 97.9; O2SAT 94
[2023-09-25 06:45] VITALS: BP 143/74; TEMP 98.1; O2SAT 95
[2023-09-25 18:32] VITALS: BP 148/100; TEMP 97.5; O2SAT 97
[2023-09-26 06:22] VITALS: BP 109/82; TEMP 97.5; O2SAT 95
[2023-09-26] MEDS ORDERED: LEVO175T2 PO (10:33)
[2023-09-26] MEDS ORDERED: INVE117I INJ (10:33)
[2023-09-26] MEDS ORDERED: FLUO40CA PO (10:33)
== END 2023-09-26 11:35 | disposition home or self-care (01) | DRG 753 ==
LOC: M ED 03:28 → M ED INP 12:02 → M PSY 15:33
PROVIDERS: ADMIT Student in an Organized Health Care Education/Training Program; ATTEND Student in an Organized Health Care Education/Training Program
DX: F31.9 Bipolar disorder, unspecified (principal); T40.992A Poisoning by other psychodysleptics [hallucinogens], intentional self-harm, initial encounter; T14.91XA Suicide attempt, initial encounter; F41.9 Anxiety disorder, unspecified; F17.200 Nicotine dependence, unspecified, uncomplicated; Z91.51 Personal history of suicidal behavior; E66.01 Morbid (severe) obesity due to excess calories; E03.9 Hypothyroidism, unspecified; Z56.0 Unemployment, unspecified; Z79.890 Hormone replacement therapy; Z79.899 Other long term (current) drug therapy; Z11.52 Encounter for screening for COVID-19; Z68.43 Body mass index [BMI] 50.0-59.9, adult; Z71.6 Tobacco abuse counseling

== ENCOUNTER → 2023-10-06 | Outpatient (CLI) | payer MEDICAID ==
[~2023-10-06] MED LIST changes: +FLUO40CA PO
== END ==
LOC: M OUTALCOH 07:33
PROVIDERS: ATTEND Psychiatry & Neurology Psychiatry
DX: F19.20 Other psychoactive substance dependence, uncomplicated (principal)

== ENCOUNTER 2023-10-20 12:57 | Outpatient (RCR) | payer MEDICAID | END 2023-10-22 | LOC: M OUTALCOH 12:57 | PROVIDERS: ATTEND Psychiatry & Neurology Psychiatry | DX: F19.20 Other psychoactive substance dependence, uncomplicated (principal) ==

== ENCOUNTER 2023-11-10 13:00 | Outpatient (RCR) | payer MEDICAID | END 2023-11-21 | LOC: M OUTALCOH 13:00 | PROVIDERS: ATTEND Psychiatry & Neurology Psychiatry | DX: F19.20 Other psychoactive substance dependence, uncomplicated (principal) ==

== ENCOUNTER 2023-12-13 11:27 | Emergency (ER) | payer MEDICAID, OTHER ==
[~2023-12-13] VITALS: Ht 175.3 cm; Wt 156.0 kg
[~2023-12-13 11:27] MED LIST changes: +BUPR-597 PO; -BUPR300T92 PO
[2023-12-13] MEDS ORDERED: INVE117I IM (11:50)
[2023-12-13] MEDS ORDERED: SYNT175T2 PO (11:50)
[2023-12-13] MEDS ORDERED: FLUO40CA PO (11:50)
[2023-12-13] MEDS ORDERED: HOME MED LIST COMPLETE! XX SCH (11:50)
[2023-12-13] MEDS ORDERED: PALI1TAB2 PO (11:50)
[2023-12-13 11:58] LABS: BASO # 0.1 10^3/uL (0.0-0.2); BASO % 0.6 % (0.0-1.0); EOS # 0.2 10^3/uL (0.0-0.5); EOS % 1.3 % (0.0-3.0); HEMATOCRIT 43.2 % (42.0-52.0); HEMOGLOBIN 14.5 g/dl (13.5-17.5); LYMPH # 1.8 10^3/uL (1.5-5.0); LYMPH % 14.3 % (24.0-44.0); MEAN CORPUSCULAR HEMOGLOBIN 29.4 pg (27.0-33.0); MEAN CORPUSCULAR HGB CONC 33.6 g/dl (32.0-36.5); MEAN CORPUSCULAR VOLUME 87.6 fl (80.0-96.0); MONO # 0.8 10^3/uL (0.0-0.8); MONO % 6.2 % (2.0-8.0); NEUTROPHILS # 9.8 10^3/uL (1.5-8.5); NEUTROPHILS % 76.5 % (36.0-66.0); PLATELET COUNT, AUTOMATED 357 10^3/uL (150-450); RED BLOOD COUNT 4.93 10^6/uL (4.30-6.10); WHITE BLOOD COUNT 12.8 10^3/uL (4.0-10.0)
[2023-12-13 12:27] LABS: ETHYL ALCOHOL (ETHANOL) < 0.003 % (0.000-0.010)
[2023-12-13 12:28] LABS: SALICYLATE LEVEL < 3.0 MG/DL (<30)
[2023-12-13 12:29] LABS: ALKALINE PHOSPHATASE 103 U/L (46-116); ALT/SGPT 39 U/L (7.0-40); AST/SGOT 16 U/L (<34); BILIRUBIN,DIRECT 0.1 MG/DL (<0.4); BILIRUBIN,TOTAL 0.3 MG/DL (0.3-1.2); BLOOD UREA NITROGEN 15 MG/DL (9-23); CALCIUM LEVEL 9.1 MG/DL (8.5-10.1); CARBON DIOXIDE LEVEL 24 MMOL/L (20-31); CHLORIDE LEVEL 107 MMOL/L (98-107); CPK CREATINE PHOSPHOKINASE 173 U/L (46-171); GLOMERULAR FILTRATION RATE > 60.0 (>60); GLUCOSE, FASTING 76 MG/DL (60-100); MAGNESIUM LEVEL 1.9 MG/DL (1.8-2.4); POTASSIUM SERUM 3.9 MMOL/L (3.5-5.1); SODIUM LEVEL 137 MMOL/L (136-145); TOTAL PROTEIN 7.2 G/DL (5.7-8.2)
[2023-12-13 12:31] LABS: THYROID STIMULATING HORMONE 31.749 uIU/ML (0.55-4.78)
[2023-12-13] MEDS: MAG SULF 1GM/100ML (MAG RUN) 1 GM in IV 1 EA IV ONE ×2 (12:35→13:02)
[2023-12-13 13:04] LABS: AMPHETAMINES LEVEL URINE NEGATIVE (NEGATIVE); BARBITURATES URINE NEGATIVE (NEGATIVE); BENZODIAZEPINES URINE NEGATIVE (NEGATIVE); COCAINE METABOLITE URINE NEGATIVE (NEGATIVE); METHADONE URINE NEGATIVE (NEGATIVE); OPIATES URINE NEGATIVE (NEGATIVE); PHENCYCLIDINE URINE NEGATIVE (NEGATIVE)
[2023-12-13 13:06] LABS: CANNABINOIDS URINE POSITIVE (NEGATIVE)
[2023-12-13 14:36] LABS: FREE T4 0.93 NG/DL (0.89-1.76)
[2023-12-13 17:46] VITALS: BP 122/73; TEMP 97.5; O2SAT 96
== END 2023-12-13 18:15 | disposition home or self-care (01) ==
LOC: EDBD 11:27 → M ED 11:27
DX: F19.10 Other psychoactive substance abuse, uncomplicated (principal); F31.9 Bipolar disorder, unspecified
CPT/HCPCS: 36415; 80048; 80076; 80143; 80307; 82077; 82550; 83735; 84439; 84443; 85025; 93005; 93041; 94760; 96365; 96366; 99285; J3475

== ENCOUNTER 2024-01-06 17:38 | Emergency (ER) | payer MEDICAID, OTHER ==
[~2024-01-06] VITALS: Ht 175.3 cm; Wt 155.4 kg
[~2024-01-06 17:38] MED LIST changes: +FLUO-365 PO; -FLUO20CA22 PO; +SYNT175T2 PO
[2024-01-06] MEDS ORDERED: cloNIDine 0.1MG TABLET PO ONE (18:00)
[2024-01-06] MEDS: NS 1,000 ML IV SCH (18:28)
[2024-01-06] MEDS: NS 1,000 ML IV ONE (18:40)
[2024-01-06] MEDS ORDERED: LORazepam 1 MG TAB PO PRN (18:55)
[2024-01-06 19:09] LABS: HEMATOCRIT 42.7 % (42.0-52.0); HEMOGLOBIN 14.7 g/dl (13.5-17.5); MEAN CORPUSCULAR HEMOGLOBIN 29.9 pg (27.0-33.0); MEAN CORPUSCULAR HGB CONC 34.4 g/dl (32.0-36.5); PLATELET COUNT, AUTOMATED 348 10^3/uL (150-450); RED BLOOD COUNT 4.91 10^6/uL (4.30-6.10); WHITE BLOOD COUNT 8.2 10^3/uL (4.0-10.0)
[2024-01-06] MEDS ORDERED: HOME MED LIST COMPLETE! XX SCH (19:25)
[2024-01-06 19:30] LABS: AMPHETAMINES LEVEL URINE NEGATIVE (NEGATIVE); BARBITURATES URINE NEGATIVE (NEGATIVE); BENZODIAZEPINES URINE NEGATIVE (NEGATIVE); COCAINE METABOLITE URINE NEGATIVE (NEGATIVE); METHADONE URINE NEGATIVE (NEGATIVE); OPIATES URINE NEGATIVE (NEGATIVE); PHENCYCLIDINE URINE NEGATIVE (NEGATIVE)
[2024-01-06 19:33] LABS: ETHYL ALCOHOL (ETHANOL) 0.004 % (0.000-0.010)
[2024-01-06 19:35] LABS: ALBUMIN 3.7 G/DL (3.2-5.2); ALKALINE PHOSPHATASE 108 U/L (46-116); ALT/SGPT 30 U/L (7.0-40); AST/SGOT < 8 U/L (<34); BILIRUBIN,DIRECT < 0.1 MG/DL (<0.4); BILIRUBIN,TOTAL 0.3 MG/DL (0.3-1.2); BLOOD UREA NITROGEN 15 MG/DL (9-23); CALCIUM LEVEL 9.5 MG/DL (8.5-10.1); CARBON DIOXIDE LEVEL 27 MMOL/L (20-31); CHLORIDE LEVEL 106 MMOL/L (98-107); CPK CREATINE PHOSPHOKINASE 72 U/L (46-171); GLOMERULAR FILTRATION RATE > 60.0 (>60); GLUCOSE, FASTING 93 MG/DL (60-100); POTASSIUM SERUM 4.4 MMOL/L (3.5-5.1); SALICYLATE LEVEL < 3.0 MG/DL (<30); SODIUM LEVEL 139 MMOL/L (136-145)
[2024-01-06 19:36] LABS: CANNABINOIDS URINE POSITIVE (NEGATIVE)
[2024-01-06 19:37] LABS: THYROID STIMULATING HORMONE 27.667 uIU/ML (0.55-4.78)
[2024-01-06 20:13] LABS: OSMOLALITY SERUM 292 MOSM/KG (275-295)
[2024-01-07 10:45] VITALS: TEMP 98.4; O2SAT 95
[2024-01-07 11:02] VITALS: BP 150/90
== END 2024-01-07 13:48 | disposition home or self-care (01) ==
LOC: M ED 17:38
DX: R45.851 Suicidal ideations (principal); F19.10 Other psychoactive substance abuse, uncomplicated; F17.200 Nicotine dependence, unspecified, uncomplicated; Z79.899 Other long term (current) drug therapy

== ENCOUNTER 2024-01-18 14:00 | Outpatient (RCR) | payer MEDICAID | END 2024-01-21 | LOC: M OUTALCOH 14:00 | PROVIDERS: ATTEND Psychiatry & Neurology Psychiatry | DX: F19.20 Other psychoactive substance dependence, uncomplicated (principal) ==

== ENCOUNTER 2024-02-14 16:45 | Inpatient (IN) | payer MEDICAID, OTHER ==
[~2024-02-14] VITALS: Ht 175.3 cm; Wt 151.0 kg
[2024-02-14 17:48] LABS: HEMATOCRIT 44.2 % (42.0-52.0); HEMOGLOBIN 15.5 g/dl (13.5-17.5); MEAN CORPUSCULAR HEMOGLOBIN 30.2 pg (27.0-33.0); MEAN CORPUSCULAR HGB CONC 35.1 g/dl (32.0-36.5); PLATELET COUNT, AUTOMATED 372 10^3/uL (150-450); RED BLOOD COUNT 5.14 10^6/uL (4.30-6.10); WHITE BLOOD COUNT 10.3 10^3/uL (4.0-10.0)
[2024-02-14 18:06] LABS: ETHYL ALCOHOL (ETHANOL) 0.004 % (0.000-0.010)
[2024-02-14 18:08] LABS: ALBUMIN 4.2 G/DL (3.2-5.2); ALKALINE PHOSPHATASE 96 U/L (46-116); ALT/SGPT 30 U/L (7.0-40); AST/SGOT 14 U/L (<34); BILIRUBIN,DIRECT 0.1 MG/DL (<0.4); BILIRUBIN,TOTAL 0.5 MG/DL (0.3-1.2); BLOOD UREA NITROGEN 17 MG/DL (9-23); CALCIUM LEVEL 10.2 MG/DL (8.5-10.1); CARBON DIOXIDE LEVEL 21 MMOL/L (20-31); CHLORIDE LEVEL 107 MMOL/L (98-107); CREATININE FOR GFR 1.02 MG/DL (0.70-1.30); GLOMERULAR FILTRATION RATE > 60.0 (>60); GLUCOSE, FASTING 103 MG/DL (60-100); SALICYLATE LEVEL < 3.0 MG/DL (<30); SODIUM LEVEL 136 MMOL/L (136-145); TOTAL PROTEIN 7.5 G/DL (5.7-8.2)
[2024-02-14 18:12] LABS: THYROID STIMULATING HORMONE 2.758 uIU/ML (0.55-4.78)
[2024-02-14 18:51] LABS: AMPHETAMINES LEVEL URINE NEGATIVE (NEGATIVE); BARBITURATES URINE NEGATIVE (NEGATIVE); COCAINE METABOLITE URINE NEGATIVE (NEGATIVE); METHADONE URINE NEGATIVE (NEGATIVE); OPIATES URINE NEGATIVE (NEGATIVE); PHENCYCLIDINE URINE NEGATIVE (NEGATIVE)
[2024-02-14 18:52] LABS: BENZODIAZEPINES URINE NEGATIVE (NEGATIVE)
[2024-02-14 18:55] LABS: CANNABINOIDS URINE POSITIVE (NEGATIVE)
[2024-02-14] MEDS ORDERED: INVE234I IM (22:41)
[2024-02-15] MEDS: PALIPERIDONE 3MG ER TAB (INVEGA) PO SCH (09:45)
[2024-02-15] MEDS: LEVOTHYROXINE 50MCG TABLET (0.05MG) PO SCH (09:45)
[2024-02-15] MEDS: LEVOTHYROXINE 125MCG TABLET (0.125MG) PO SCH (09:45)
[2024-02-15] MEDS: FLUoxetine 20MG CAP PO SCH (09:45)
[2024-02-15] MEDS ORDERED: LEVO200T4 PO (10:47)
[2024-02-15] MEDS ORDERED: HOME MED LIST COMPLETE! XX SCH (10:50)
[2024-02-15] MEDS ORDERED: MOM 30ML SUSPENSION UDC PO PRN (20:00)
[2024-02-15] MEDS ORDERED: ACETAMINOPHEN TAB 650MG DOSE (2X325MG) PO PRN (20:00)
[2024-02-15] MEDS ORDERED: MAALOX 30 ML SUSP *UDC PO PRN (20:00)
[2024-02-15] MEDS ORDERED: OLANZapine ORAL DISINTEGRATING TAB 5MG PO PRN (20:00)
[2024-02-15] MEDS ORDERED: IBUPROFEN 400MG TAB PO PRN (20:00)
[2024-02-15] MEDS ORDERED: diphenhydrAMINE 25MG CAP PO PRN (20:00)
[2024-02-16 02:50] VITALS: BP 139/87; TEMP 98.2; O2SAT 97
[2024-02-16 06:20] VITALS: BP 105/76; TEMP 98.2; O2SAT 96
[2024-02-16] MEDS: lamoTRIgine 25MG TAB PO SCH (15:10)
[2024-02-16] MEDS: FLUoxetine 20MG CAP PO SCH (15:11)
[2024-02-16] MEDS: LEVOTHYROXINE 100MCG TABLET (0.1MG) PO SCH (15:11)
[2024-02-16 16:38] VITALS: BP 131/85; TEMP 97.2; O2SAT 95
[2024-02-16] MEDS: LACTOBACILLUS ACIDOPHILUS CAP (BACID) PO SCH (17:25)
[2024-02-16] MEDS: PALIPERIDONE 3MG ER TAB (INVEGA) PO SCH (20:59)
[2024-02-16] MEDS: traZODone 50 MG TAB PO PRN (20:59)
[2024-02-17 06:55] VITALS: BP 135/86; TEMP 96.4; O2SAT 95
[2024-02-17] MEDS: NICOTINE 21MG/24HR 1 EA TRANSDERMAL TD PRN (12:14)
[2024-02-17 12:35] VITALS: BP 135/86; TEMP 96.4; O2SAT 95
[2024-02-17 17:38] VITALS: BP 150/96; TEMP 97.2; O2SAT 95
[2024-02-18 06:18] VITALS: BP 110/74; TEMP 97.5; O2SAT 97
[2024-02-18 17:06] VITALS: BP 139/84; TEMP 96.2; O2SAT 95
[2024-02-19 06:26] VITALS: BP 137/95; TEMP 97.8; O2SAT 95
[2024-02-19 19:48] VITALS: BP 131/75; TEMP 98.6
[2024-02-20 06:15] VITALS: BP 105/63; TEMP 97.4; O2SAT 95
[2024-02-20 17:19] VITALS: BP 128/88; TEMP 97.2; O2SAT 94
[2024-02-21 06:12] VITALS: BP 116/69; TEMP 97.1; O2SAT 95
[2024-02-21 18:38] VITALS: BP 115/59; TEMP 97
[2024-02-22 06:45] VITALS: BP 125/83; TEMP 97.6; O2SAT 96
[2024-02-22] MEDS ORDERED: PALI1TAB2 PO (10:35)
[2024-02-22] MEDS ORDERED: LAMI25TA PO (10:35)
[2024-02-22] MEDS ORDERED: RISATAB3 PO (10:35)
[2024-02-22] MEDS ORDERED: TRAZ-252 PO (10:35)
== END 2024-02-22 14:43 | disposition home or self-care (01) | DRG 753 ==
LOC: M ED 16:45 → M ED INP 02-15 19:56 → M PSY 02-15 20:47
PROVIDERS: ADMIT Student in an Organized Health Care Education/Training Program; ATTEND Student in an Organized Health Care Education/Training Program
DX: F31.9 Bipolar disorder, unspecified (principal); R45.851 Suicidal ideations; E03.9 Hypothyroidism, unspecified; F20.9 Schizophrenia, unspecified; F17.200 Nicotine dependence, unspecified, uncomplicated; Z79.890 Hormone replacement therapy; Z79.899 Other long term (current) drug therapy; Z56.0 Unemployment, unspecified; Z11.52 Encounter for screening for COVID-19

== ENCOUNTER → 2024-02-21 | Outpatient (RCR) | payer MEDICAID ==
[~2024-02-21] MED LIST changes: +INVE234I IM; +LAMI25TA PO; +LEVO200T4 PO; +RISATAB3 PO
== END ==
LOC: M OUTALCOH 02-01 13:42
PROVIDERS: ATTEND Psychiatry & Neurology Psychiatry
DX: F19.20 Other psychoactive substance dependence, uncomplicated (principal)

== ENCOUNTER 2024-03-22 15:00 | Outpatient (RCR) | payer MEDICAID | END 2024-03-23 | LOC: M OUTALCOH 15:00 | PROVIDERS: ATTEND Psychiatry & Neurology Psychiatry | DX: F19.20 Other psychoactive substance dependence, uncomplicated (principal) ==

== ENCOUNTER 2024-05-22 09:12 | Outpatient (RCR) | payer MEDICAID | END 2024-05-23 | LOC: M OUTALCOH 09:12 | PROVIDERS: ATTEND Psychiatry & Neurology Psychiatry | DX: F19.20 Other psychoactive substance dependence, uncomplicated (principal) ==

== ENCOUNTER 2024-06-17 10:30 | Outpatient (RCR) | payer MEDICAID | END 2024-06-22 | LOC: M OUTALCOH 10:30 | PROVIDERS: ATTEND Psychiatry & Neurology Psychiatry | DX: F19.20 Other psychoactive substance dependence, uncomplicated (principal) ==

== ENCOUNTER 2024-07-22 10:14 | Outpatient (RCR) | payer MEDICAID | END 2024-07-23 | LOC: M OUTALCOH 10:14 | PROVIDERS: ATTEND Psychiatry & Neurology Psychiatry | DX: F19.20 Other psychoactive substance dependence, uncomplicated (principal) ==

== ENCOUNTER 2024-08-19 10:15 | Outpatient (RCR) | payer MEDICAID | END 2024-08-23 | LOC: M OUTALCOH 10:15 | PROVIDERS: ATTEND Psychiatry & Neurology Psychiatry | DX: F19.20 Other psychoactive substance dependence, uncomplicated (principal) ==

== ENCOUNTER 2024-09-23 10:43 | Outpatient (RCR) | payer MEDICAID | END 2024-10-21 | LOC: M OUTALCOH 10:43 | PROVIDERS: ATTEND Psychiatry & Neurology Psychiatry | DX: F19.20 Other psychoactive substance dependence, uncomplicated (principal) ==

== ENCOUNTER 2024-10-28 10:38 | Outpatient (RCR) | payer MEDICAID ==
[~2024-10-28 10:38] MED LIST changes: -BUPR-597 PO; +BUPR-766 PO
== END 2024-11-20 ==
LOC: M OUTALCOH 10:38
PROVIDERS: ATTEND Psychiatry & Neurology Psychiatry
DX: Z03.89 Encounter for observation for other suspected diseases and conditions ruled out (principal); Z72.0 Tobacco use

== ENCOUNTER → 2025-01-29 | Outpatient (CLI) | payer MEDICAID | LOC: M OUTALCOH 08:29 | PROVIDERS: ATTEND Psychiatry & Neurology Psychiatry | DX: F19.20 Other psychoactive substance dependence, uncomplicated (principal); F13.20 Sedative, hypnotic or anxiolytic dependence, uncomplicated; F12.20 Cannabis dependence, uncomplicated; F17.200 Nicotine dependence, unspecified, uncomplicated ==

== ENCOUNTER 2025-02-19 08:40 | Outpatient (RCR) | payer MEDICAID | END 2025-02-20 | LOC: M OUTALCOH 08:40 | PROVIDERS: ATTEND Psychiatry & Neurology Psychiatry | DX: F19.20 Other psychoactive substance dependence, uncomplicated (principal); F13.20 Sedative, hypnotic or anxiolytic dependence, uncomplicated; F12.20 Cannabis dependence, uncomplicated; F17.200 Nicotine dependence, unspecified, uncomplicated ==

== ENCOUNTER → 2025-02-20 | Outpatient (REF) | payer MEDICAID ==
[2025-02-20 17:01] LABS: ALT/SGPT 24 U/L (7.0-40); AST/SGOT 15 U/L (<34); CALCIUM LEVEL 9.4 MG/DL (8.5-10.1); CARBON DIOXIDE LEVEL 26 MMOL/L (20-31); CHLORIDE LEVEL 105 MMOL/L (98-107); CHOLESTEROL LEVEL 223 MG/DL (<200); CHOLESTEROL RISK RATIO 6.88 (<5); CREATININE FOR GFR 0.83 MG/DL (0.70-1.30); GLOMERULAR FILTRATION RATE > 90.0 (>60); LDL CHOLESTEROL 142.6 MG/DL (<100); NON-HDL-C 190.6 MG/DL; POTASSIUM SERUM 4.4 MMOL/L (3.5-5.1); SODIUM LEVEL 142 MMOL/L (136-145); TRIGLYCERIDES LEVEL 240 MG/DL (<150)
== END ==
LOC: M LAB REF 16:20
PROVIDERS: ATTEND Family Medicine Addiction Medicine
DX: E03.9 Hypothyroidism, unspecified (principal)

== ENCOUNTER 2025-03-21 15:00 | Outpatient (RCR) | payer MEDICAID ==
[~2025-03-21 15:00] MED LIST changes: -IBUP-1022 PO; +IBUP600T42 PO
== END 2025-03-23 ==
LOC: M OUTALCOH 15:00
PROVIDERS: ATTEND Psychiatry & Neurology Psychiatry
DX: F19.20 Other psychoactive substance dependence, uncomplicated (principal); F13.20 Sedative, hypnotic or anxiolytic dependence, uncomplicated; F12.20 Cannabis dependence, uncomplicated; F17.200 Nicotine dependence, unspecified, uncomplicated

== ENCOUNTER 2025-04-18 15:00 | Outpatient (RCR) | payer MEDICAID | END 2025-04-22 | LOC: M OUTALCOH 15:00 | PROVIDERS: ATTEND Psychiatry & Neurology Psychiatry | DX: F19.20 Other psychoactive substance dependence, uncomplicated (principal); F13.20 Sedative, hypnotic or anxiolytic dependence, uncomplicated; F12.20 Cannabis dependence, uncomplicated; F17.200 Nicotine dependence, unspecified, uncomplicated ==

== ENCOUNTER → 2025-05-23 | Outpatient (RCR) | payer MEDICAID | LOC: M OUTALCOH 04-23 13:32 | PROVIDERS: ATTEND Psychiatry & Neurology Psychiatry | DX: F19.20 Other psychoactive substance dependence, uncomplicated (principal); F13.20 Sedative, hypnotic or anxiolytic dependence, uncomplicated; F12.20 Cannabis dependence, uncomplicated; F17.200 Nicotine dependence, unspecified, uncomplicated ==

== ENCOUNTER 2025-06-16 16:00 | Outpatient (RCR) | payer MEDICAID | END 2025-06-22 | LOC: M OUTALCOH 16:00 | PROVIDERS: ATTEND Psychiatry & Neurology Psychiatry | DX: F19.20 Other psychoactive substance dependence, uncomplicated (principal); F13.20 Sedative, hypnotic or anxiolytic dependence, uncomplicated; F12.20 Cannabis dependence, uncomplicated; F17.200 Nicotine dependence, unspecified, uncomplicated ==

== ENCOUNTER 2025-07-21 16:00 | Outpatient (RCR) | payer MEDICAID | END 2025-07-23 | LOC: M OUTALCOH 16:00 | PROVIDERS: ATTEND Psychiatry & Neurology Psychiatry | DX: F19.20 Other psychoactive substance dependence, uncomplicated (principal); F13.20 Sedative, hypnotic or anxiolytic dependence, uncomplicated; F12.20 Cannabis dependence, uncomplicated; F17.200 Nicotine dependence, unspecified, uncomplicated ==